=== PATIENT | female | born 1935 | race Caucasian/White ===

== ENCOUNTER 2017-08-29 10:24 | Inpatient (IN) | payer MEDICARE, OTHER ==
[~2017-08-29] VITALS: Ht 162.6 cm; Wt 95.6 kg
[~2017-08-29 10:24] MED LIST: ACHD5005 PO; ALLO300T2 PO; ASPI-586 PO; BISA5TAB8 PO; CHOL100045 PO; DOCU100C37 PO; ENOX30DI4 SC; GEMF600T3 PO; GLYB1.253 PO; INSU100V16 SC; LOSA25TA21 PO; MAGN400O7 PO; MULT-141 PO; OMG1KC PO; PROP15DR OU; SENN-140 PO; TIMO5DRO27 OU
[2017-08-29 11:00] VITALS: BP 134/58
--- NOTE | 2017-08-29 11:38 | Physical Therapy Evaluation ---
PT Evaluation-General Medical Diagnosis Admission Date Aug 29, 2017 at 11:00 Medical Diagnosis: left hip fracture Onset Date: Aug 27, 2017 Therapy Diagnosis Therapy Diagnosis: impaired mobility, strength, endurance, balance Height/Weight Height (Feet): 5 Height (Inches): 4.00 Weight (Pounds): 199 Weight (Ounces): 3.2 Weight Bear Status Left Lower Extremity: Left Touch Toe Bearing Referral Physician: Raffi Reason for Referral: Evaluation/Treatment Medical History Pertinent Medical History: Arthritis, DM, HTN Current History tripped over a scale in her bathroom Reviewed History: Yes Social History Home: Multilevel Current Living Status: Spouse Entry Into Home: Stairs With Railing PT Steps Into Home: 4 Prior/Core FIM Prior Level of Function Functional [place] Measure 0=Not Assessed/NA 4=Minimal Assistance 1=Total Assistance 5=Supervision or Setup 2=Maximal Assistance 6=Modified [place] 3=Moderate Assistance 7=Complete [place] Bed Mobility: 7 Transfers (B,C,W/C) (FIM): 7 Gait: 7 PT Evaluation-Current Subjective Patient in bed pre tx, on the fourth floor, will be doing rehab eval and taking her to the rehab floor. Patient at no complaints of pain at rest. During activity she only had 1-2/10 pain. Pt/Family Goals to be independent at home Objective Patient Orientation: Person, Place, Situation ROM/Strength ROM Lower Extremities NT due to recent surgery Strenght Lower Extremities NT due to recent surgery on left side, right side gross 4/5 Neuromuscular (Tone, Coordination, Reflexes) NT Sensory Vision: Functional Hearing: Functional Sensation Right Lower Extremit: Intact Sensation Left Lower Extremity: Intact Transfers Functional [place] Measure 0=Not Assessed/NA 4=Minimal Assistance 1=Total Assistance 5=Supervision or Setup 2=Maximal Assistance 6=Modified [place] 3=Moderate Assistance 7=Complete IndependenceIRFPAI Quality Coding Scale 6 Independent with activity with or without an assistive device 5 Patient requires set up or clean up by helper. Patient completes activity by themselves 4 Supervision or touching assist (CGA). [place] provide cues , steadying assist 3 The helper provides less than half the effort to complete the activity 2 The helper provides more than half the effort to complete the activity 1 Dependent. The helper does all the effort to complete an activity 7 Patient refused to complete or attempt activity 9 The patient did not perform the activity before the current illness or injury 88 Not attempted due to Medical conditions or safety concerns Transfers (B, C, W/C) (FIM): 4 Scootin Rollin Roll Left to Right (QC): 4 Supine to/from Sit: 4 Sit to/from Stand: 4 bed t/f WC(FIM only if WC use): 4 Sit to Lying (QC): 3 Lying to Sitting/Side of Bed(Q: 3 Sit to Stand (QC): 3 Chair/Foi-oz-Xuwyh Xfer(QC): 3 Car Transfer (QC): 3 Patient performs bed mobility with SBA, needs min assist for supine <-> sit and sit to stand, min assist for car transfer. Patient needs assist getting her left leg into and out of bed and to stand from lower surfaces. Gait Does the Patient Walk?: Yes Mode of Locomotion: Walk Anticipated Mode of Locomotion: Walk Gait (FIM): 1 Walk 10 feet (QC): 4 Walk 50 ft with 2 Turns(QC): 88 Walk 150 ft (QC): 88 Walking 10ft/uneven surface-QC: 88 Distance: 20 Gait Level of Assist: 4 Gait Persons Needed: 1 Gait Assistive Device: FWW Comments/Gait Description Patient can ambulate 20' with a rolling walker with CGA. She is TTWB has has trouble maintaining that. A step was not tried due to this reason. Wheelchair Training Does the Pt Use a Wheelchair?: Yes Wheelchair (FIM): 2 Distance: 50' Wheelchair Level of Assist: 4 Wheel 50 ft with 2 turns (QC): 3 Type of Wheelchair: Manual Patient can propel a manual wheelchair 50' with min assist. Stairs If not tested on admit;explain Patient is not appropriate to go up and down even 1 step at this time due to trouble maintaining her weight bearing status. Balance Sitting Static: Normal Sitting Dynamic: Normal Standing Static: Fair Standing Dynamic: Fair Picking up an Object (QC): 88 Treatment standing exercises in parallel bars x15 LLE (hip flex,hip abd, hamstring curls) , seated exercises bilateral LE x20 (AP, LAQ) Assessment/Needs Patient has impaired mobility, strength, endurance, balance. She is not confused. Has trouble maintaining her weight bearing status. Rehab Potential: Fair PT Short Term Goals Short Term Goals Time Frame: September 05, 2017 Transfers (B,C,W/C) (FIM): 4 Gait (FIM): 1 Gait Distance Comment: 40' Gait Level of Assist: 4 Gait Assistive Device: FWW PT Mcfp Goals Mcfp Goals PT Steam Turbine Operator Goals Time Frame: September 19, 2017 Transfers (B,C,W/C) (FIM): 5 Sit to Lying (QC): 6 Lying-Sitting on Side/Bed(QC): 6 Sit to Stand (QC): 4 Rollin Roll Left to Right (QC): 6 Chair/Iqb-xe-Rscrz Xfer(QC): 4 Car Transfer (QC): 4 Gait (FIM): 2 Distance: 100' Walk 10 feet (QC): 4 Walk 10ft-Uneven Surface(QC): 4 Walk 50ft with 2 Turns (QC): 4 Gait Level of Assist: 5 Gait Assistive Device: FWW Stairs (FIM): 2 # of Steps: 4 1 Step (curb) (QC): 4 4 Steps (QC): 4 Stairs Level Of Assist: 4 PT Plan Problem List Problem List: Activity Tolerance, Functional Strength, Safety, Balance, Gait, Transfer, Bed Mobility, ROM Treatment/Plan Treatment Plan: Continue Plan of Care Treatment Plan: Bed Mobility, Education, Functional Activity Jose David, Functional Strength, Group Therapy, Gait, Safety, Therapeutic Exercise, Transfers Treatment Duration: September 19, 2017 Frequency: At least 5 of 7 days/Wk (IRF) Estimated Hrs Per Day: 1.5 hours per day Patient and/or Family Agrees t: Yes Safety Risks/Education Patient Education: Gait Training, Transfer Techniques, Reviewed Precautions, Correct Positioning, W/C Management, Disease Process, Safety Issues Teaching Recipient: Patient Teaching Methods: Demonstration, Discussion Response to Teaching: Reinforcement Needed Discharge Recommendations Plan Patient will perform bed mobility and transfer training, balance and endurance training, functional strengthening, stair training, gait training, and education , to improve functional mobility and independence at home. Therapy D/C Recommendations: Home w/ Family Support Time/GCodes Time In: 1050 Time Out: 1130 Total Billed Treatment Time: 40 Total Billed Treatment 1 visit EVM 15' GT 10' EX 15' COSME MORGAN PT Aug 29, 2017 11:38
[2017-08-29] MEDS ORDERED: BISACODYL 5 MG (DULCOLAX) TABLET PO PRN (11:45)
[2017-08-29] MEDS ORDERED: ARTIFICAL TEARS 0.4 ML UNIT DOSE (REFRESH PLUS) OU PRN (12:00)
[2017-08-29] MEDS: HYDROcodone/APAP 5 MG/325 MG (LORTAB) TAB PO PRN ×2 (12:36→20:53)
[2017-08-29] MEDS: MILK OF MAGNESIA 400 MG/5 ML 30 ML UDC PO PRN (12:36)
--- NOTE | 2017-08-29 12:51 | Occupational Therapy Eval ---
OT Evaluation-General/PLF Medical Diagnosis Admission Date Aug 29, 2017 at 11:00 Medical Diagnosis: left hip fracture Onset Date: Aug 27, 2017 Therapy Diagnosis Therapy Diagnosis: decreased self care skills Height/Weight Height (Feet): 5 Height (Inches): 4.00 Weight (Pounds): 205 Weight (Ounces): 0.0 Weight Bear Status Weight Bearing Restriction: Touch Toe Bearing Location Restriction: L LE Referral Physician: Raffi Medical History Pertinent Medical History: Arthritis, DM, HTN Additional Medical History cataract, glaucoma Current History Pt fell at home and sustained a left hip fracture. Pt is s/p pinning and is TTWB left LE. Reviewed History: Yes Social History Home: Multilevel Current Living Status: Spouse Entry Into Home: Stairs With Railing Steps Into Home: 4 Steps Inside Home: 5 (to bedrooms) Pt states bedrooms are upstairs, but there is a half bath on main level. May be able to put a bed in the living room to avoid having to go upstairs until hip is healed. ADL-Prior Level of Function ADL PLOF Comments Pt reports being independent with self care and mobility. Has a customer quality specialist 2x/ month for heavy cleaning. DME/Equipment: Bath Bench, Tub/Shower Drive Self: Yes OT Current Status Subjective Pt sitting in chair, agrees to treatment. Pt reports 6/10 pain in left hip and also states she is having some nausea. Mental Status/Objective Patient Orientation: Person, Place, Situation Current Glasses/Contacts: Yes Hearing Aids: Yes (does not have them here) Dentures/Partials: Yes Hand Dominance: Right Upper Extremity ROM Grossly WFL Upper Extremity Coordination Intact Upper Extremity Sensation Intact per pt report ADL-Treatment ADL-Current Pt donned bra with minimal assistance and donned button up shirt with set up. Pt sit to stand from w/c with minimal assistance. Transfer to toilet with minimal assistance using grab bars for safety, TTWB left LE. Pt able to complete toileting hygiene, requires minimal assistance for balance during clothing management. Pt reports fatigue and requests to return to bed after session. Sit to supine with assist for left LE. Pt resting in bed with needs met and spouse present after session. Functional [place] Measure 0=Not Assessed/NA 4=Minimal Assistance 1=Total Assistance 5=Supervision or Setup 2=Maximal Assistance 6=Modified [place] 3=Moderate Assistance 7=Complete IndependenceIRFPAI Quality Coding Scale 6 Independent with activity with or without an assistive device 5 Patient requires set up or clean up by helper. Patient completes activity by themselves 4 Supervision or touching assist (CGA). [place] provide cues , steadying assist 3 The helper provides less than half the effort to complete the activity 2 The helper provides more than half the effort to complete the activity 1 Dependent. The helper does all the effort to complete an activity 7 Patient refused to complete or attempt activity 9 The patient did not perform the activity before the current illness or injury 88 Not attempted due to Medical conditions or safety concerns Upper Body Dressing (FIM): 4 Upper Body Dressing (QC): 3 Toileting (FIM): 4 Toileting Hygiene (QC): 3 Toilet/Commode Transfer (FIM): 4 Toilet Transfer (QC): 3 Education OT Patient Education: Rehab process Teaching Recipient: Patient Teaching Methods: Discussion Response to Teaching: Verbalize Understanding OT Short Term Goals Short Term Goals Time Frame: September 05, 2017 Upper Body Dressing(FIM): 5 Lower Body Dressing(FIM): 4 Toileting(FIM): 5 Toilet/Commode Transfer(FIM): 5 Additional Short Term Goals: 1-Demonstrate ADL Tasks, 2-Verbalize Understanding , 3-ImproveStrength/Jose David 1=Demonstrate adherence to instructed precautions during ADL tasks. 2=Patient will verbalize/demonstrate understanding of assistive devices/ modifications for ADL. 3=Patient will improve strength/tolerance for activity to enable patient to perform ADL's. OT Penitentiary Goals Operations Supervisor Goals Time Frame: September 19, 2017 Eating (FIM): 6 Eating (QC): 6 Groomin Oral Hygiene (QC): 6 Bathing(FIM): 5 Shower/Bathe Self (QC): 5 Upper Body Dressing(FIM): 6 Upper Body Dressing (QC): 6 Lower Body Dressing(FIM): 5 Lower Body Dressing (QC): 5 On/Off Footwear (QC): 6 Toileting(FIM): 6 Toileting Hygiene (QC): 6 Toilet/Commode Transfer(FIM): 6 Toilet/Commode Transfer (QC): 6 Shower Transfer(FIM): 5 Additional Goals: 1-Demonstrate ADL Tasks, 2-Verbalize Understanding, 3- ImproveStrength/Jose David 1=Demonstrate adherence to instructed precautions during ADL tasks. 2=Patient will verbalize/demonstrate understanding of assistive devices/ modifications for ADL. 3=Patient will improve strength/tolerance for activity to enable patient to perform ADL's. OT Education/Plan Problem List/Assessment Assessment: Decreased Activ Tolerance, Decreased UE Strength, Dependent Transfers, Impaired Funct Balance, Impaired Self-Care Skills Pt admitted to ARU following acute hospitalization for left hip fracture. Pt is TTWB left LE. Pt demonstrates decreased ADL functioning, mobility, strength, and activity tolerance. Pt to benefit from skilled OT intervention for ADL training, transfers, strengthening, adaptive equipment training, and home safety education to increase level of independence and allow safe discharge. Discharge Recommendations Plan/Recommendations: Continue POC Treatment Plan/Plan of Care Treatment,Training & Education: Yes Patient would benefit from OT for education, treatment and training to promote independence in ADL's, mobility, safety and/or upper extremity function for ADL' s. Plan of Care: ADL Retraining, Functional Mobility, Group Exercise/Act as Ind, UE Funct Exercise/Act Treatment Duration: September 19, 2017 Frequency: At least 5 of 7 days/Wk (IRF) Estimated Hrs Per Day: 1.5 hours per day Agreement: Yes Rehab Potential: Fair Time/GCodes Start Time: 11:30 Stop Time: 12:15 Total Time Billed (hr/min): 45 Billed Treatment Time 1 visit, EVM(15minutes), ADLx2(30minutes) HARDIK HARTMAN OT Aug 29, 2017 12:51
[2017-08-29] MEDS: ONDANSETRON 4 MG (ZOFRAN) ORAL DISSOLVE TAB PO PRN ×2 (13:38→20:52)
--- NOTE | 2017-08-29 14:06 | ST Cognitive Linguistic Eval ---
Speech Evaluation-General Medical Diagnosis left hip fracture Onset Date: Aug 27, 2017 Therapy Diagnosis Therapy Diagnosis: Cognitive Linguistic Skills WNL Precautions Precautions/Isolations: Fall Prevention, Standard Precautions Referral Referring Physician: Dr. Vasu Nugent Reason for Referral: Evaluation/Treatment Cognitive Evaluation Medical History Pertinent Medical History: Arthritis, DM, HTN Reviewed History: Yes Social History Current Living Status: Spouse Speech PLF-Current Status Prior Level of Function The patient denied prior difficulties with speech, language, or cognition prior to admission. Subjective The patient was seated upright in bed, with her spouse at bedside upon entrance. The patient greeted the clinician appropriately and was agreeable to participation in the cognitive evaluation. Language Eval: Auditory Comprehends Simple Yes/No Ques: Functional Indent/Objects Multiple [place]: Functional Ident/Pics in Multiple [place]: Functional Follows 1-Step Commands: Functional Follows Complex Directions: Functional Follows General Conversations: Functional Language Eval: Verbal Language Completes Spontaneous Greeting: Functional Produces Auto, Serial Info: Functional Imitates Simple Words/Phrases: Functional Word Finding: Functional Requests Basic Needs: Functional States Basic Personal Info: Functional Expresses Complex Ideas: Functional Cognitive Patient Orientation The patient was independently oriented to self, location, month, and year. The patient stated it was Sunday (the day of the week is Sunday). Objective Cognitive Domain Attention: WNL Memory: WNL Problem Solving: Functional Objective Impression The patient demonstrated cognitive linguistic skills within normal limits and appropriate for completion of ADL's. Communication/Social Cognition Comprehension: 6 (Glasses and Hearing Aids) Expression: 7 Social Interaction: 7 Problem Solvin Memory: 7 Speech Patient Assess Expression of Ideas/Wants: Expression (4) Understanding [place] Content: Understands (4) Brief Interview-Mental Status: Yes Repetition of Three Words: Three (3) Temporal Orientation: Year: Correct (3) Temporal Orientation: Month: Accurate within 5 days(2) Temporal Orientation: Day: Incorrect or No Answer(0) Recall : Wear to say "Sock": Yes, no cue required (2) Recall : Color: Yes, no cue required (2) Recall : Bed: Yes, no cue required (2) Speech-Plan Treatment Plan Speech Therapy Treatment Plan: Discontinue ST Evaluation, only. Frequency: Modified Program (IRF) (No ST warranted.) Estimated Hrs Per Day: Other (No ST warranted.) Rehab Potential: Fair Safety Risks/Education Teaching Recipient: Patient, Significant Other Teaching Methods: Discussion Response to Teaching: Verbalize Understanding Education Topics Provided: Results, Recommendations, Plan of Care Time Speech Therapy Time In: 12:35 Speech Therapy Time Out: 12:50 Total Billed Time: 15 Billed Treatment Time 1, RUTH BULL Aug 29, 2017 14:05
--- NOTE | 2017-08-29 14:24 | Occupational Ther Daily Note ---
OT Current Status-Daily Note Subjective Pt alert, lying in bed. Pt agreed to therapy. No c/o pain at this time. present in room. Mental Status/Objective Patient Orientation: Person, Place, Time, Situation Functional [place] Measure 0=Not Assessed/NA 4=Minimal Assistance 1=Total Assistance 5=Supervision or Setup 2=Maximal Assistance 6=Modified [place] 3=Moderate Assistance 7=Complete [place] Attachments: IV ADL-Treatment After therapy, pt lying in bed with call light/phone in reach. Family and nrsg present in room. All needs met in room. Functional [place] Measure 0=Not Assessed/NA 4=Minimal Assistance 1=Total Assistance 5=Supervision or Setup 2=Maximal Assistance 6=Modified [place] 3=Moderate Assistance 7=Complete IndependenceIRFPAI Quality Coding Scale 6 Independent with activity with or without an assistive device 5 Patient requires set up or clean up by helper. Patient completes activity by themselves 4 Supervision or touching assist (CGA). [place] provide cues , steadying assist 3 The helper provides less than half the effort to complete the activity 2 The helper provides more than half the effort to complete the activity 1 Dependent. The helper does all the effort to complete an activity 7 Patient refused to complete or attempt activity 9 The patient did not perform the activity before the current illness or injury 88 Not attempted due to Medical conditions or safety concerns Grooming (FIM): 5 (SBA using FWW standing at sink.) Oral Hygiene (QC): 5 Bathing (FIM): 4 (After set up, pt was able to complete sponge bath all areas except lower legs. SBA in standing to cleanse buttocks/allyson area.) Bathing Location: L Arm, R Arm, L Upper Leg, R Upper Leg, Chest, Abdomen, Buttocks, Perineal Area Shower/Bathe Self (QC): 3 Upper Body (FIM): 5 (After set up, pt is able to complete.) Upper Body Dressing (QC): 5 Lower Body Dressing (FIM): 2 (Assist needed to don/doff lower body clothing over feet. Pt introduced to lower body AE for dressing. Pt able to stand and hike pants over hips with SBA.) Lower Body Dressing (QC): 2 On/Off Footwear (QC): 1 OT Short Term Goals Short Term Goals Time Frame: September 05, 2017 Upper Body Dressing(FIM): 5 Lower Body Dressing(FIM): 4 Toileting(FIM): 5 Toilet/Commode Transfer(FIM): 5 Additional Short Term Goals: 1-Demonstrate ADL Tasks, 2-Verbalize Understanding , 3-ImproveStrength/Jose David 1=Demonstrate adherence to instructed precautions during ADL tasks. 2=Patient will verbalize/demonstrate understanding of assistive devices/ modifications for ADL. 3=Patient will improve strength/tolerance for activity to enable patient to perform ADL's. OT Custodial Goals River Boat Captain Goals Time Frame: September 19, 2017 Eating (FIM): 6 Eating (QC): 6 Groomin Oral Hygiene (QC): 6 Bathing(FIM): 5 Shower/Bathe Self (QC): 5 Upper Body Dressing(FIM): 6 Upper Body Dressing (QC): 6 Lower Body Dressing(FIM): 5 Lower Body Dressing (QC): 5 On/Off Footwear (QC): 6 Toileting(FIM): 6 Toileting Hygiene (QC): 6 Toilet/Commode Transfer(FIM): 6 Toilet/Commode Transfer (QC): 6 Shower Transfer(FIM): 5 Additional Goals: 1-Demonstrate ADL Tasks, 2-Verbalize Understanding, 3- ImproveStrength/Jose David 1=Demonstrate adherence to instructed precautions during ADL tasks. 2=Patient will verbalize/demonstrate understanding of assistive devices/ modifications for ADL. 3=Patient will improve strength/tolerance for activity to enable patient to perform ADL's. OT Education/Plan Problem List/Assessment Pt admitted to ARU following acute hospitalization for left hip fracture. Pt is TTWB left LE. Pt demonstrates decreased ADL functioning, mobility, strength, and activity tolerance. Pt to benefit from skilled OT intervention for ADL training, transfers, strengthening, adaptive equipment training, and home safety education to increase level of independence and allow safe discharge. Discharge Recommendations Plan/Recommendations: Continue POC Treatment Plan/Plan of Care Patient would benefit from OT for education, treatment and training to promote independence in ADL's, mobility, safety and/or upper extremity function for ADL' s. Plan of Care: ADL Retraining, Functional Mobility, Group Exercise/Act as Ind, UE Funct Exercise/Act Treatment Duration: September 19, 2017 Frequency: At least 5 of 7 days/Wk (IRF) Estimated Hrs Per Day: 1.5 hours per day Agreement: Yes Rehab Potential: Fair Time/GCodes Start Time: 12:50 Stop Time: 13:50 Total Time Billed (hr/min): 60 Billed Treatment Time 1 visit-ADL 4 (60 min) CRISTOBAL CANALES Aug 29, 2017 14:24
--- NOTE | 2017-08-29 14:30 | HISTORY AND PHYSICAL ---
DATE OF SERVICE: 08/29/2017 CHIEF COMPLAINT: Difficulty with walking. HISTORY OF PRESENT ILLNESS: The patient is a 81-year-old female who had been independent AND living with her spouse in [place], [place] who fell and sustained a fracture of the neck of the left femur. The patient was admitted to [facility] and had cannulated screw fixation. The patient was made touchdown weightbearing, left lower extremity postoperatively by Dr. Hutchinson, orthopedics. The patient was followed in the perioperative period by hospitalist service in lieu of PCP. The patient is now referred to inpatient rehabilitation unit for ongoing care and therapies with goal of maximizing level of functional dependence prior to discharge to home with her spouse. She has five steps to enter her house, her spouse presents to unit with her. Currently, she is mod assist for transfers and min assist for ambulation with a front wheel walker. She has difficulty maintaining her weightbearing status left lower extremity. She is set up for eating and grooming, min assist for upper body dressing, max assist for lower body dressing. PAST MEDICAL HISTORY: Hyponatremia, hypertension, prior fall with left shoulder injury. PAST SURGICAL HISTORY: Ear surgery, left total knee replacement, hysterectomy. ALLERGIES: No known medication allergies. FAMILY HISTORY: Noncontributory. SOCIAL HISTORY: as per above. Lives in [place], [place]. PCP, Dr. Madrid. REVIEW OF SYSTEMS: Ten point review of systems significant for left hip pain and falls. Now she does complain of some nausea as well, which she relates to pain medication. MEDICATIONS: Cozaar 25 mg p.o. daily. Lopid 600 mg p.o. daily, multivitamins with minerals one tablet p.o. daily, glyburide 1.25 mg p.o. daily, allopurinol 300 mg p.o. daily at bedtime, Colace 100 mg p.o. b.i.d., Senokot 1 tablet p.o. b.i.d., Timoptic eyedrops one drop into both eyes at bedtime, ASA 81 mg p.o. daily at bedtime, fish oil 1000 mg p.o. daily at bedtime, Lovenox 30 mg subcutaneous b.i.d., NovoLog insulin sliding scale regimen before meals and at bedtime, Zofran 4 mg p.o. q.6 hours p.r.n. nausea and vomiting, Refresh eyedrops one drop both eyes q.i.d. p.r.n. dry eyes, Dulcolax 5 mg p.o. daily p.r.n. constipation, hydrocodone APAP 5/325 1-2 tablets p.o. q.4 hours for moderate pain. PHYSICAL EXAMINATION: GENERAL: Significant for a pleasant female appearing her stated age, alert and oriented, lying in bed in no acute distress indicating that her nausea is improving. VITAL SIGNS: Within normal limits. She is afebrile. HEENT: Vision, speech, hearing grossly intact. No oral lesion is noted. NECK: Supple without mass. HEART: Regular rhythm. CHEST: Clear. ABDOMEN: Soft, nontender, bowel sounds present. EXTREMITIES: Trace edema left ankle, no calf tenderness. MUSCULOSKELETAL: The patient has functional active range of motion in both upper limbs and right lower limb, left lower limb limited due to recent fracture and repair. NEUROLOGIC: Sensation grossly intact to touch. Cognition is grossly intact. Strength: She has functional strength in both upper limbs and right lower limb strength 4/5. She is able to dorsiflex the left ankle. ASSESSMENT AND PLAN: 1. Ambulatory dysfunction secondary to fall with fracture of left hip, status post cannulated screw fixation by Dr. Hutchinson touchdown weightbearing left lower limb. 2. Osteoarthritis, status post left total knee replacement. 3. Hypertension, controlled with medication. 4. Deep vein thrombosis prophylaxis, on Lovenox subq. 5. Postop nausea medication related, Zofran ordered. 6. Diabetes mellitus, controlled with medication. 7. Hypercholesterolemia, on medication. 8. pOSTOP RESP INSUFFICIENCY ON SUPPLEMENTAL 02 9. pOSTOP CONSTIPATION 10. dm PLAN: The patient will have A comprehensive program of inpatient rehabilitation WITH goal of maximizing THE level of functioning independenCE prior to discharge to home with spouse. The patient will have PT, OT 90 minutes per day each discipline, 5 days a week for 14 days with the patient being modified independent, supervision for ADLs and mobility skills prior to discharge to home with spouse so as to lessen the burden as a caregiver. Please see post-admission physician evaluation, which is a separate document for details of plan of care. Speech therapy to do cognitive assessment and treat as indicated. Rehabilitation nursing assist with bowel, bladder, skin, wound care, medication administration, pain management, Zofran ordered for nausea. Monitor and follow up at hospitalist service and orthopedics as per their schedule. Monitor Accu-Cheks and adjust medications as needed for diabetes. ESTIMATED LENGTH OF STAY: 14 days. PROGNOSIS: Rehab prognosis appears good for goal of discharging home with spouse, modified independent to supervision for ADLs and mobility skills.mAY NEED TO FOCUS ON w/ c LEVEL OF FUNCTION DUE TO ttwb lle DIET: cARB Consistent. CODE STATUS: Full code. Job ID: [id number] DocumentID: [id number] Dictated Date: 08/29/2017 12:54:51 Legal Instructor Date: 08/29/2017 14:30:06 Dictated By: LIBERTAD LIPSCOMB MD MTDD
--- NOTE | 2017-08-29 15:43 | Physical Therapy Daily Note ---
PT Daily Note-Current Subjective Pt laying Supine in bed upon arrival. Pt reports feeling tired from a long day. Pt agrees to Supine bed Ex for PT. Pain Location: No Pain Reported Mental Status Patient Orientation: Person, Place, Time, Situation Attachments: SCD's Transfers Functional [place] Measure 0=Not Assessed/NA 4=Minimal Assistance 1=Total Assistance 5=Supervision or Setup 2=Maximal Assistance 6=Modified [place] 3=Moderate Assistance 7=Complete IndependenceIRFPAI Quality Coding Scale 6 Independent with activity with or without an assistive device 5 Patient requires set up or clean up by helper. Patient completes activity by themselves 4 Supervision or touching assist (CGA). [place] provide cues , steadying assist 3 The helper provides less than half the effort to complete the activity 2 The helper provides more than half the effort to complete the activity 1 Dependent. The helper does all the effort to complete an activity 7 Patient refused to complete or attempt activity 9 The patient did not perform the activity before the current illness or injury 88 Not attempted due to Medical conditions or safety concerns Weight Bearing Right Lower Extremity: Right Full Weight Bearing Left Lower Extremity: Left Touch Toe Bearing Exercises Supine Ex: Ankle pumps, Quad Set, Glut sets, Heel Slides, Hip abd/add Supine Reps: 15 Treatments Pt completed Supine Ex with a couple of rest breaks. Pt resting in bed at end of tx with all needs met, including call light in hand and tray next to bed. Assessment Pt is able to tolerate tx well. Pt fatigues and struggles to stay awake by end of tx. PT Short Term Goals Short Term Goals Time Frame: September 05, 2017 Gait (FIM): 1 Gait Distance Comment: 40' Gait Level of Assist: 4 Gait Assistive Device: FWW Wheelchair Distance: 50' PT Longterm Goals Longterm Goals PT Longterm Goals Time Frame: September 19, 2017 Transfers (B,C,W/C) (FIM): 5 Sit to Lying (QC): 6 Lying-Sitting on Side/Bed(QC): 6 Sit to Stand (QC): 4 Rollin Roll Left to Right (QC): 6 Chair/Ovj-my-Nkjvz Xfer(QC): 4 Car Transfer (QC): 4 Gait (FIM): 2 Distance: 100' Walk 10 feet (QC): 4 Walk 10ft-Uneven Surface(QC): 4 Walk 50ft with 2 Turns (QC): 4 Gait Level of Assist: 5 Gait Assistive Device: FWW Stairs (FIM): 2 # of Steps: 4 1 Step (curb) (QC): 4 4 Steps (QC): 4 Stairs Level Of Assist: 4 PT Plan Problem List Problem List: Activity Tolerance, Functional Strength, Safety, Balance, Gait, Transfer Treatment/Plan Treatment Plan: Continue Plan of Care Treatment Plan: Bed Mobility, Education, Functional Activity Jose David, Functional Strength, Group Therapy, Gait, Safety, Therapeutic Exercise, Transfers Treatment Duration: September 19, 2017 Frequency: At least 5 of 7 days/Wk (IRF) Estimated Hrs Per Day: 1.5 hours per day Patient and/or Family Agrees t: Yes Safety Risks/Education Patient Education: Correct Positioning, Safety Issues Teaching Recipient: Patient Teaching Methods: Discussion Response to Teaching: Verbalize Understanding Time/GCodes Time In: 1515 Time Out: 1535 Total Billed Treatment Time: 20 Total Billed Treatment 1, EX (20m) MASON COATES PROGRESS WORKER Aug 29, 2017 15:43
[2017-08-29] MEDS: inSUlin ASPART (NovoLOG) 1 UNIT/0.01 ML (CHARGE PER UNIT) SC SCH ×2 (16:12→20:57)
[2017-08-29 18:00] VITALS: BP 132/62
[2017-08-29] MEDS: DOCUSATE SODIUM 100 MG (COLACE) CAP PO SCH (20:52)
[2017-08-29] MEDS: ENOXAPARIN 30 MG/0.3 ML (LOVENOX) SYR SC SCH (20:52)
[2017-08-29] MEDS: ALLOPURINOL 300 MG (ZYLOPRIM) TAB PO SCH (20:53)
[2017-08-29] MEDS: ASPIRIN E.C. 81 MG (ECOTRIN) TAB PO SCH (20:53)
[2017-08-29] MEDS: OMEGA 3 (FISH OIL) 1000 MG CAP PO SCH (20:53)
[2017-08-29] MEDS: SENNOSIDES 8.6 MG (SENOKOT) TAB PO SCH (20:53)
[2017-08-29] MEDS: TIMOLOL MALEATE 0.5% 5 ML (TIMOPTIC) BTL OU SCH (20:58)
[2017-08-30] MEDS: ONDANSETRON 4 MG (ZOFRAN) ORAL DISSOLVE TAB PO PRN ×2 (04:26→21:00)
[2017-08-30] MEDS: HYDROcodone/APAP 5 MG/325 MG (LORTAB) TAB PO PRN ×3 (04:27→21:00)
[2017-08-30] MEDS: inSUlin ASPART (NovoLOG) 1 UNIT/0.01 ML (CHARGE PER UNIT) SC SCH ×4 (04:41→21:11)
[2017-08-30 05:08] VITALS: BP 133/69
[2017-08-30] MEDS: glyBURIDE 2.5 MG (MICRONASE) TAB PO SCH (06:43)
[2017-08-30] MEDS: MULTIVIT W/MINERALS TAB (THERAGRAN M) PO SCH (06:43)
[2017-08-30] MEDS: ENOXAPARIN 30 MG/0.3 ML (LOVENOX) SYR SC SCH ×2 (08:37→21:03)
[2017-08-30] MEDS: GEMFIBROZIL 600 MG (LOPID) TAB PO SCH (08:37)
[2017-08-30] MEDS: LOSARTAN 25 MG (COZAAR) TAB PO SCH (08:37)
[2017-08-30] MEDS: SENNOSIDES 8.6 MG (SENOKOT) TAB PO SCH ×2 (08:37→21:03)
[2017-08-30] MEDS: DOCUSATE SODIUM 100 MG (COLACE) CAP PO SCH ×3 (08:37→21:05)
--- NOTE | 2017-08-30 10:38 | PM & R (SOAP) Progress Note ---
Subjective This was a face to face visit with the patient. Date Seen by Provider: Aug 30, 2017 Time Seen by Provider: 08:30 Subjective/Events-last exam Patient was seen in her room this AM Adjusting well to unit No nausea today Patient mod assist for transfers Review of Systems Musculoskeletal: leg pain Neurological: Weakness Objective Physician Exam Last Set of Vital Signs Vital Signs Date Time Temp Pulse Resp B/P (MAP) Pulse Ox O2 Delivery O2 Flow Rate FiO2 08/30/17 09:16 Nasal Cannula 2.00 08/30/17 05:08 98.6 77 18 133/69 (90) 96 Capillary Refill : Less Than 3 Seconds I&O Intake and Output 08/30/17 00:00 Intake Total 300 ml Balance 300 ml Intake Oral 300 ml # Voids 2 Daily Weight Change No General: Alert, Oriented X3, Cooperative, No Acute Distress HEENT: Atraumatic, PERRLA, EOMI, Mucous Memb Moist/[place] Neck: Supple, No JVD Lungs: Clear to Auscultation Heart: Regular Rate Abdomen: Normal Bowel Sounds, Soft, No Tenderness Extremities: No Edema Neuro: Other (Sensation intact Cognition intact Strength good except for left LLE due to recent frx and repair) Results Lab Data Laboratory Tests 08/29/17 16:12: Glucometer 114H 08/29/17 20:57: Glucometer 152H 08/30/17 04:25: Glucometer 85 Assessment/Plan Assessment and Plan Left Hip fracture s/p Nailing TTWB LLE OA s/p Left TKR HTN controlled DVT Prophylaxis on Lovenox DM Controlled with current meds Hypercholesteremia on meds Postop nausea resolved Plan Continue PT/OT/Pain management F/U with PCP and ortho as per their schedule Monitor accucheks and Blood pressure and adjust meds as needed Co-Morbidities that are continuing to impact the rehab process: (include details ) LIBERTAD LIPSCOMB MD Aug 30, 2017 10:38
--- NOTE | 2017-08-30 10:43 | PM&R Post Admission Assessment ---
Post Admission Physician Asses Date seen by provider: Aug 30, 2017 Time seen by provider: 08:30 Admisison Dx: (1) Closed subcapital fracture of neck of left femur The preadmission screen agrees with the post admission assessment that the patient is a good candidate for inpatient rehabilitation. The patient will have a comprehensive program of inpatient rehabilitation with a goal of maximizing level of functional independence prior to discharge home with spouse and HHC. The patient will have PT/OT ninety minutes per day, each discipline, five days a week for gait, strengthening, conditioning, balance, ADLs, any patient/family/caregiver training as necessary. Speech therapy to do cognitive assessment and treat as indicated. Rehabilitation nursing to assist with bowel, bladder, skin, wound care, medication administration, pain management. Cloth Winder to assist with discharge planning, community reentry. SCD's and Lovenox subcut for DVT prophylaxis. She appears to be well motivated to participate in three hours of therapy a day. She should be able to tolerate three hours of therapy a day from a medical and surgical standpoint. She should benefit from the three hours of therapy a day. She has a reasonable discharge plan, reasonable discharge rehabilitation goals and a supportive family. She has various comorbidities that need to be closely monitored with medications and treatments adjusted on a daily basis as needed. These include: HTN DM Barriers to discharge for this patient who had been independent prior to this are for her to be modified independent to supervision for ADLs and mobility skills prior to discharge home with spouse, so as to lessen the burden of the caregivers. The focus may have to be on W/C level of function initially due to TTWB status LLE Risks for this patient include: 1. Fall 2. Fracture 3. DVT 4. Pulmonary embolism 5. Wound infection 6. Skin breakdown 7. Contractures 8. Poorly controlled pain 9. Urinary retention 10. UTI 11. Respiratory infection 12. Aspiration 13. Poorly controlled HT 14. Poorly controlled DM 15. Recurrent Nausea Estimated Length of Stay: 14 days Prognosis: Rehab prognosis appears good for goal of discharge home with spouse and HHC modified independent to supervision for ADLs and mobility skills. General: Alert, Oriented X3, Cooperative, No Acute Distress HEENT: Atraumatic, PERRLA, EOMI, Mucous Memb Moist/[place] Neck: Supple, No JVD Lungs: Clear to Auscultation Heart: Regular Rate Abdomen: Normal Bowel Sounds, Soft, No Tenderness Extremities: No Edema Neuro: Other (Sensation intact Cognition intact Strength good except for left LLE due to recent frx and repair) LIBERTAD LIPSCOMB MD Aug 30, 2017 10:43
--- NOTE | 2017-08-30 10:44 | Progress Note-Hospitalist ---
Subjective HPI/CC On Admission Date Seen by Provider: Aug 30, 2017 Time Seen by Provider: 10:15 Subjective/Events-last exam Patient doing a lot better since nausea and vomiting earlier today Giovanni is helping her Pain is controlled as long as she doesn't move No BM yet and will work on that a little more today Review of Systems Gastrointestinal: Nausea, Vomiting, Constipation Objective Exam Vital Signs Vital Signs Date Time Temp Pulse Resp B/P (MAP) Pulse Ox O2 Delivery O2 Flow Rate FiO2 08/30/17 09:16 Nasal Cannula 2.00 08/30/17 05:08 98.6 77 18 133/69 (90) 96 Capillary Refill : Less Than 3 Seconds General Appearance: No Apparent Distress, WD/WN, Chronically ill, Obese Respiratory: Lungs Clear, Normal Breath Sounds Cardiovascular: Regular Rate, Rhythm, No Edema Neurologic/Psychiatric: Alert, Oriented x3 (subtle poor recall) Results/Procedures Lab Patient resulted labs reviewed. Assessment/Plan Assessment and Plan Assess & Plan/Chief Complaint Assessment: Hip fracture repair uncomplicated Postop anemia Nausea and vomiting Constipation Plan: Pain meds Nausea treatment Clinical Quality Measures DVT/VTE Risk/Contraindication: Risk Factor Score Per Nursin RFS Level Per Nursing on Admit: 4+=Very High KENDRICK DOHERTY DO Aug 30, 2017 10:44
--- NOTE | 2017-08-30 12:01 | Physical Therapy Daily Note ---
PT Daily Note-Current Subjective Pt in bed resting, in room, upon arrival. Pt agrees to PT tx. Pt states she was nauseous and had threw up earlier this morning after her shower. Pain Numeric Pain Scale: 3 Location: Left Location Body Site: Hip Pain Description: Ache Mental Status Patient Orientation: Person, Place, Time, Situation Attachments: Oxygen (2L) Transfers Functional [place] Measure 0=Not Assessed/NA 4=Minimal Assistance 1=Total Assistance 5=Supervision or Setup 2=Maximal Assistance 6=Modified [place] 3=Moderate Assistance 7=Complete IndependenceIRFPAI Quality Coding Scale 6 Independent with activity with or without an assistive device 5 Patient requires set up or clean up by helper. Patient completes activity by themselves 4 Supervision or touching assist (CGA). [place] provide cues , steadying assist 3 The helper provides less than half the effort to complete the activity 2 The helper provides more than half the effort to complete the activity 1 Dependent. The helper does all the effort to complete an activity 7 Patient refused to complete or attempt activity 9 The patient did not perform the activity before the current illness or injury 88 Not attempted due to Medical conditions or safety concerns Transfers (B, C, W/C) (FIM): 4 Scootin Supine to/from Sit: 4 Sit to/from Stand: 4 Sit to Lying (QC): 4 Sit to Stand (QC): 4 Pt transfer Sit to Stand at [facility], but has more difficulty transferring from [facility] to standing, d/t [facility] being low. DIRECTOR OF VALUATION will look for appropriate sized cushion to add some height. Weight Bearing Right Lower Extremity: Right Full Weight Bearing Left Lower Extremity: Left Touch Toe Bearing Gait Training Does the Patient Walk?: Yes Gait (FIM): 4 Distance (FIM): 3=150 ft Distance: 175' Walk 10 feet (QC): 4 Walk 50 ft with 2 Turns(QC): 4 Walk 150 ft (QC): 4 Gait Level of Assist: 4 Gait Persons Needed: 1 Gait Assistive Device: FWW Exercises Seated Therapy Exercises: Ankle pumps, Long arc quads, Hip flexion Seated Reps: 20 Standing: Hip Abduction (L LE only ), Hamstring curls (L LE only ) Standing Reps: 15 Treatments Pt Supine to EOB w/ CGA. Pt rests on EOB to help ease nausea. Pt transfers EOB to Standing w/ CGA, then ambulates to Therapy Gym w/ FWW. Pt completes Seated EX in [facility] and Standing EX in //bars. Pt returns to room to rest in bed and eat lunch w/ all needs met including call light in hand, in room and tray in front of patient, at end of tx. Assessment Current Status: Good Progress Pt c/o nausea throughout tx, but actively participates. Pt requires breaks during EX to help ease nausea. PT Short Term Goals Short Term Goals Time Frame: September 05, 2017 Gait (FIM): 1 Gait Distance Comment: 40' Gait Level of Assist: 4 Gait Assistive Device: FWW Wheelchair Distance: 50' PT Livestock Breeder Goals Skilled Nursing Goals PT Livestock Breeder Goals Time Frame: September 19, 2017 Transfers (B,C,W/C) (FIM): 5 Sit to Lying (QC): 6 Lying-Sitting on Side/Bed(QC): 6 Sit to Stand (QC): 4 Rollin Roll Left to Right (QC): 6 Chair/Zeu-rq-Aycmj Xfer(QC): 4 Car Transfer (QC): 4 Gait (FIM): 2 Distance: 100' Walk 10 feet (QC): 4 Walk 10ft-Uneven Surface(QC): 4 Walk 50ft with 2 Turns (QC): 4 Gait Level of Assist: 5 Gait Assistive Device: FWW Stairs (FIM): 2 # of Steps: 4 1 Step (curb) (QC): 4 4 Steps (QC): 4 Stairs Level Of Assist: 4 PT Plan Problem List Problem List: Activity Tolerance, Functional Strength, Safety, Balance, Gait, Transfer, Bed Mobility Treatment/Plan Treatment Plan: Continue Plan of Care Treatment Plan: Bed Mobility, Education, Functional Activity Jose David, Functional Strength, Group Therapy, Gait, Safety, Therapeutic Exercise, Transfers Treatment Duration: September 19, 2017 Frequency: At least 5 of 7 days/Wk (IRF) Estimated Hrs Per Day: 1.5 hours per day Patient and/or Family Agrees t: Yes Safety Risks/Education Patient Education: Gait Training, Transfer Techniques, Correct Positioning, Disease Process, Safety Issues Teaching Recipient: Patient Teaching Methods: Demonstration, Discussion Response to Teaching: Verbalize Understanding, Return Demonstration, Reinforcement Needed Time/GCodes Time In: 1100 Time Out: 1200 Total Billed Treatment Time: 60 Total Billed Treatment 1, EX x2 (30m), GT (20m), FA (10m) G Codes Necessary: No TREIBER,MASON DIRECTOR OF VALUATION Aug 30, 2017 12:01
[2017-08-30] MEDS: BISACODYL 10 MG SUPP (DULCOLAX) PR SCH ×2 (12:19→21:10)
--- NOTE | 2017-08-30 14:51 | Occupational Ther Daily Note ---
OT Current Status-Daily Note Subjective No pain reported. Appearance Pt. agrees to shower. Has already ate breakfast. Mental Status/Objective Patient Orientation: Person, Place Functional [place] Measure 0=Not Assessed/NA 4=Minimal Assistance 1=Total Assistance 5=Supervision or Setup 2=Maximal Assistance 6=Modified [place] 3=Moderate Assistance 7=Complete [place] Attachments: Oxygen ADL-Treatment Functional [place] Measure 0=Not Assessed/NA 4=Minimal Assistance 1=Total Assistance 5=Supervision or Setup 2=Maximal Assistance 6=Modified [place] 3=Moderate Assistance 7=Complete IndependenceIRFPAI Quality Coding Scale 6 Independent with activity with or without an assistive device 5 Patient requires set up or clean up by helper. Patient completes activity by themselves 4 Supervision or touching assist (CGA). [place] provide cues , steadying assist 3 The helper provides less than half the effort to complete the activity 2 The helper provides more than half the effort to complete the activity 1 Dependent. The helper does all the effort to complete an activity 7 Patient refused to complete or attempt activity 9 The patient did not perform the activity before the current illness or injury 88 Not attempted due to Medical conditions or safety concerns Bathing (FIM): 3 (Pt. requires assist to thoroughly wash feet and wash rear allyson area in shower.) Shower/Bathe Self (QC): 3 Upper Body (FIM): 4 (Min assist to adjust bra strap. Otherwise, able to don shirt.) Upper Body Dressing (QC): 4 Lower Body Dressing (FIM): 3 (Pt. required assist to don pants over feet.) Lower Body Dressing (QC): 3 On/Off Footwear (QC): 3 Toileting (FIM): 4 (CGA in stance.) Toileting Hygiene (QC): 4 Transfers (B, C, W/C) (FIM): 4 (CGA to ambulate with walker to bathroom.) Toilet/Commode Transfer (FIM): 4 Toilet Transfer (QC): 4 Shower Transfer(FIM): 4 Other Treatment Pt. states that she feels nauseated after shower. Pt. transferred back to bed. Nursing made aware and in room assessing pt. Education OT Patient Education: Correct positioning, Modified ADL techniques, Progress toward Goal/Update tx plan, Purpose of tx/functional activities, Reviewed precautions, Rehab process, Transfer techniques Teaching Recipient: Patient Teaching Methods: Demonstration Response to Teaching: Verbalize Understanding, Return Demonstration OT Short Term Goals Short Term Goals Time Frame: September 05, 2017 Upper Body Dressing(FIM): 5 Lower Body Dressing(FIM): 4 Toileting(FIM): 5 Toilet/Commode Transfer(FIM): 5 Additional Short Term Goals: 1-Demonstrate ADL Tasks, 2-Verbalize Understanding , 3-ImproveStrength/Jose David 1=Demonstrate adherence to instructed precautions during ADL tasks. 2=Patient will verbalize/demonstrate understanding of assistive devices/ modifications for ADL. 3=Patient will improve strength/tolerance for activity to enable patient to perform ADL's. OT Pre Sales Network Engineer Goals [facility] Goals Time Frame: September 19, 2017 Eating (FIM): 6 Eating (QC): 6 Groomin Oral Hygiene (QC): 6 Bathing(FIM): 5 Shower/Bathe Self (QC): 5 Upper Body Dressing(FIM): 6 Upper Body Dressing (QC): 6 Lower Body Dressing(FIM): 5 Lower Body Dressing (QC): 5 On/Off Footwear (QC): 6 Toileting(FIM): 6 Toileting Hygiene (QC): 6 Toilet/Commode Transfer(FIM): 6 Toilet/Commode Transfer (QC): 6 Shower Transfer(FIM): 5 Additional Goals: 1-Demonstrate ADL Tasks, 2-Verbalize Understanding, 3- ImproveStrength/Jose David 1=Demonstrate adherence to instructed precautions during ADL tasks. 2=Patient will verbalize/demonstrate understanding of assistive devices/ modifications for ADL. 3=Patient will improve strength/tolerance for activity to enable patient to perform ADL's. OT Education/Plan Problem List/Assessment Assessment: Decreased Activ Tolerance, Dependent Transfers, Impaired Bed Mobility, Impaired Funct Balance, Impaired I ADL's, Impaired Self-Care Skills Pt admitted to ARU following acute hospitalization for left hip fracture. Pt is TTWB left LE. Pt demonstrates decreased ADL functioning, mobility, strength, and activity tolerance. Pt to benefit from skilled OT intervention for ADL training, transfers, strengthening, adaptive equipment training, and home safety education to increase level of independence and allow safe discharge. Discharge Recommendations Plan/Recommendations: Continue POC Therapy D/C Recommendations: Home w/ Family Support, Occupational Therapy Home Care Treatment Plan/Plan of Care Treatment,Training & Education: Yes Patient would benefit from OT for education, treatment and training to promote independence in ADL's, mobility, safety and/or upper extremity function for ADL' s. Plan of Care: ADL Retraining, Functional Mobility, Group Exercise/Act as Ind, UE Funct Exercise/Act Treatment Duration: September 19, 2017 Frequency: At least 5 of 7 days/Wk (IRF) Estimated Hrs Per Day: 1.5 hours per day Agreement: Yes Rehab Potential: Fair Time/GCodes Start Time: 08:30 Stop Time: 09:30 Total Time Billed (hr/min): 60 Billed Treatment Time 1, ADL x 4 BRIAN HOLT OT Aug 30, 2017 14:51
--- NOTE | 2017-08-30 14:57 | Occupational Ther Daily Note ---
OT Current Status-Daily Note Subjective No pain reported. Appearance Pt. in bed. Agrees to work with OT. Mental Status/Objective Patient Orientation: Person, Place Functional [place] Measure 0=Not Assessed/NA 4=Minimal Assistance 1=Total Assistance 5=Supervision or Setup 2=Maximal Assistance 6=Modified [place] 3=Moderate Assistance 7=Complete [place] Attachments: Oxygen ADL-Treatment Functional [place] Measure 0=Not Assessed/NA 4=Minimal Assistance 1=Total Assistance 5=Supervision or Setup 2=Maximal Assistance 6=Modified [place] 3=Moderate Assistance 7=Complete IndependenceIRFPAI Quality Coding Scale 6 Independent with activity with or without an assistive device 5 Patient requires set up or clean up by helper. Patient completes activity by themselves 4 Supervision or touching assist (CGA). [place] provide cues , steadying assist 3 The helper provides less than half the effort to complete the activity 2 The helper provides more than half the effort to complete the activity 1 Dependent. The helper does all the effort to complete an activity 7 Patient refused to complete or attempt activity 9 The patient did not perform the activity before the current illness or injury 88 Not attempted due to Medical conditions or safety concerns Transfers (B, C, W/C) (FIM): 4 (Min assist to transfer supine-sit and sit- stand.) Toilet/Commode Transfer (FIM): 4 (CGA to ambulate into bathroom.) Toilet Transfer (QC): 4 Pt. transferred to side of bed. Practiced donning shoes with dressing stick. Required min assist for this. Pt. issued shoe spoon. Ambulated with emphasis to maintain TTWB to therapy dining room. Pt. sat and rested. Ambulated back to room with increased time needed. Pt. requested to use toilet. Transferred to toilet in bathroom. Pt. requested to sit awhile and pulled chord when done. Education OT Patient Education: Correct positioning, Modified ADL techniques, Progress toward Goal/Update tx plan, Purpose of tx/functional activities, Reviewed precautions, Rehab process, Transfer techniques Teaching Recipient: Patient Teaching Methods: Demonstration, Discussion Response to Teaching: Verbalize Understanding, Return Demonstration OT Short Term Goals Short Term Goals Time Frame: September 05, 2017 Upper Body Dressing(FIM): 5 Lower Body Dressing(FIM): 4 Toileting(FIM): 5 Toilet/Commode Transfer(FIM): 5 Additional Short Term Goals: 1-Demonstrate ADL Tasks, 2-Verbalize Understanding , 3-ImproveStrength/Jose David 1=Demonstrate adherence to instructed precautions during ADL tasks. 2=Patient will verbalize/demonstrate understanding of assistive devices/ modifications for ADL. 3=Patient will improve strength/tolerance for activity to enable patient to perform ADL's. OT Senior Care Goals Medical Chief Technician Goals Time Frame: September 19, 2017 Eating (FIM): 6 Eating (QC): 6 Groomin Oral Hygiene (QC): 6 Bathing(FIM): 5 Shower/Bathe Self (QC): 5 Upper Body Dressing(FIM): 6 Upper Body Dressing (QC): 6 Lower Body Dressing(FIM): 5 Lower Body Dressing (QC): 5 On/Off Footwear (QC): 6 Toileting(FIM): 6 Toileting Hygiene (QC): 6 Toilet/Commode Transfer(FIM): 6 Toilet/Commode Transfer (QC): 6 Shower Transfer(FIM): 5 Additional Goals: 1-Demonstrate ADL Tasks, 2-Verbalize Understanding, 3- ImproveStrength/Jose David 1=Demonstrate adherence to instructed precautions during ADL tasks. 2=Patient will verbalize/demonstrate understanding of assistive devices/ modifications for ADL. 3=Patient will improve strength/tolerance for activity to enable patient to perform ADL's. OT Education/Plan Problem List/Assessment Assessment: Decreased Activ Tolerance, Dependent Transfers, Impaired I ADL's, Impaired Self-Care Skills Pt admitted to ARU following acute hospitalization for left hip fracture. Pt is TTWB left LE. Pt demonstrates decreased ADL functioning, mobility, strength, and activity tolerance. Pt to benefit from skilled OT intervention for ADL training, transfers, strengthening, adaptive equipment training, and home safety education to increase level of independence and allow safe discharge. Discharge Recommendations Plan/Recommendations: Continue POC Therapy D/C Recommendations: Home w/ Family Support, Occupational Therapy Home Care Treatment Plan/Plan of Care Treatment,Training & Education: Yes Patient would benefit from OT for education, treatment and training to promote independence in ADL's, mobility, safety and/or upper extremity function for ADL' s. Plan of Care: ADL Retraining, Functional Mobility, Group Exercise/Act as Ind, UE Funct Exercise/Act Treatment Duration: September 19, 2017 Frequency: At least 5 of 7 days/Wk (IRF) Estimated Hrs Per Day: 1.5 hours per day Agreement: Yes Rehab Potential: Good Time/GCodes Start Time: 13:00 Stop Time: 13:30 Total Time Billed (hr/min): 30 Billed Treatment Time 1, FA x 15minutes, ADL x 15minutes BRIAN HOLT OT Aug 30, 2017 14:57
--- NOTE | 2017-08-30 15:01 | Physical Therapy Daily Note ---
PT Daily Note-Current Subjective Pt in bed resting, in room, upon arrival. Pt agrees to PT tx. Pt asked if she could take 1 pain pill instead of 2. SALES OPERATIONS COORDINATOR passed this information on to Nursing. Pain Location: No Pain Reported Mental Status Patient Orientation: Person, Place, Time, Situation Attachments: Oxygen (2L) Transfers Functional [place] Measure 0=Not Assessed/NA 4=Minimal Assistance 1=Total Assistance 5=Supervision or Setup 2=Maximal Assistance 6=Modified [place] 3=Moderate Assistance 7=Complete IndependenceIRFPAI Quality Coding Scale 6 Independent with activity with or without an assistive device 5 Patient requires set up or clean up by helper. Patient completes activity by themselves 4 Supervision or touching assist (CGA). [place] provide cues , steadying assist 3 The helper provides less than half the effort to complete the activity 2 The helper provides more than half the effort to complete the activity 1 Dependent. The helper does all the effort to complete an activity 7 Patient refused to complete or attempt activity 9 The patient did not perform the activity before the current illness or injury 88 Not attempted due to Medical conditions or safety concerns Transfers (B, C, W/C) (FIM): 4 Scootin Rollin Supine to/from Sit: 4 Sit to/from Stand: 4 Sit to Lying (QC): 4 Sit to Stand (QC): 4 Cushion put in pts WCH, d/t noticing it was more difficult transferring from WCH to standing, than other seated surfaces. Weight Bearing Right Lower Extremity: Right Full Weight Bearing Left Lower Extremity: Left Touch Toe Bearing Gait Training Does the Patient Walk?: Yes Gait (FIM): 4 Distance (FIM): 3=150 ft Distance: 150' Walk 10 feet (QC): 4 Walk 50 ft with 2 Turns(QC): 4 Gait Level of Assist: 4 Gait Persons Needed: 1 Gait Assistive Device: FWW Treatments Pt transfers Supine to EOB and EOB to standing at CGA. Pt ambulates into hallway w/ FWW, practices Sit to Stand w/ cushion added to WCH. SALES OPERATIONS COORDINATOR observes increased independence w/ transfer, d/t cushion being added to WCH. Pt ambulates throughout Therapy Unit, before returning to room to rest in bed w/ all needs met including call light in hand, in room and tray by bedside , at end of tx. Assessment Current Status: Good Progress Pt c/o nausea throughout tx. PT Short Term Goals Short Term Goals Time Frame: September 05, 2017 Gait (FIM): 1 Gait Distance Comment: 40' Gait Level of Assist: 4 Gait Assistive Device: FWW Wheelchair Distance: 50' PT Pulmonology Physician Goals Half-Way Goals PT Pulmonology Physician Goals Time Frame: September 19, 2017 Transfers (B,C,W/C) (FIM): 5 Sit to Lying (QC): 6 Lying-Sitting on Side/Bed(QC): 6 Sit to Stand (QC): 4 Rollin Roll Left to Right (QC): 6 Chair/Hui-nd-[place]oa[place] Xfer(QC): 4 Car Transfer (QC): 4 Gait (FIM): 2 Distance: 100' Walk 10 feet (QC): 4 Walk 10ft-Uneven Surface(QC): 4 Walk 50ft with 2 Turns (QC): 4 Gait Level of Assist: 5 Gait Assistive Device: FWW Stairs (FIM): 2 # of Steps: 4 1 Step (curb) (QC): 4 4 Steps (QC): 4 Stairs Level Of Assist: 4 PT Plan Problem List Problem List: Activity Tolerance, Functional Strength, Safety, Balance, Gait, Transfer, Bed Mobility Treatment/Plan Treatment Plan: Continue Plan of Care Treatment Plan: Bed Mobility, Education, Functional Activity Jose David, Functional Strength, Group Therapy, Gait, Safety, Therapeutic Exercise, Transfers Treatment Duration: September 19, 2017 Frequency: At least 5 of 7 days/Wk (IRF) Estimated Hrs Per Day: 1.5 hours per day Patient and/or Family Agrees t: Yes Safety Risks/Education Patient Education: Gait Training, Transfer Techniques, Correct Positioning, Disease Process, Safety Issues Teaching Recipient: Patient Teaching Methods: Discussion Response to Teaching: Verbalize Understanding Time/GCodes Time In: 1400 Time Out: 1430 Total Billed Treatment Time: 30 Total Billed Treatment 1, GT (20m), FA (10m) G Codes Necessary: MASON Gonsalez SALES OPERATIONS COORDINATOR Aug 30, 2017 15:01
--- NOTE | 2017-08-30 16:33 | Individualized Plan of Care ---
Individualized Plan of Care Rehab Nursing IPOC Order Admission Date Aug 29, 2017 at 11:00 Current Orders Orders Admission Order(Inpt,Obs,Sdc) (08/29/17 11:38) Pt Evaluate/Treat Request (08/29/17 11:38) Request For Cognitive Services (08/29/17 11:38) Request Ot Evaluate & Treat (08/29/17 11:38) Code/Resuscitation (08/29/17 11:42) Accucheck Achs ACHS (08/29/17 11:42) Incentive Spirometry (Nursing) Q2H (08/29/17 11:42) Oxygen-Administer 07,19 (08/29/17 11:42) Sequential Compression Device 08,20 (08/29/17 11:42) Hao Hose 09,21 (08/29/17 11:42) Weight Bearing Status (08/29/17 11:42) Cho 60g/M 1snack (16-2000 Karlos) (08/29/17 Lunch) Allopurinol Tablet (Zyloprim Tablet) (08/29/17 21:00) Docusate Sodium Capsule (Colace Capsule) (08/29/17 21:00) Bisacodyl Tablet (Dulcolax Tablet) (08/29/17 11:45) Hydrocodone/Apap 5/325 Tablet (Lortab 5 (08/29/17 11:45) Losartan Tablet (Cozaar Tablet) (08/30/17 09:00) Enoxaparin Injection (Lovenox Injection) (08/29/17 20:00) Magnesium Hydroxide Oral Susp (Mom Oral (08/29/17 11:45) Insulin Aspart (Novolog) (Novolog (Charg (08/29/17 16:00) Sennosides Tablet (Senokot Tablet) (08/29/17 21:00) Timolol 0.5% Ophthalmic Soln (Timoptic 0 (08/29/17 21:00) Glyburide Tablet (Micronase Tablet) (08/30/17 06:30) Case Management Consult (08/29/17 11:42) Incentive Spirometry Initial (08/29/17 11:42) Occupational Therapy Order (08/29/17 11:42) Physical Therapy [place] (08/29/17 11:42) Request Ot Evaluate & Treat (08/29/17 11:42) Incentive Spirometry (Nursing) Q2H (08/29/17 11:42) Turn, Cough, And Deep Breathe (08/29/17 11:53) Aspirin Enteric Coated Tablet (Ecotrin T (08/29/17 21:00) Gemfibrozil Tablet (Lopid Tablet) (08/30/17 09:00) Therapeutic Multivitamin Tab (Vitamins, (08/30/17 07:00) [place] 3 Capsule (Fish Oil Capsule) (08/29/17 21:00) Carboxymethylcell Ophth Soln (Refresh Pl (08/29/17 12:00) Isolation Central Supply Req (08/29/17 11:59) Vital Signs: Every 4 Hours (Or ,18 (08/29/17 11:42) Vital Signs: Special (Ord) (08/29/17 12:01) Consult Physician (08/29/17 12:03) Patient Visit (08/29/17 ) Pt Eval Moderate Complexity (08/29/17 ) Gait Training, Ea 15 Min (08/29/17 ) Exercise Therap, Ea 15 Min (08/29/17 ) Ondansetron Oral Dissolve Tab (Zofran (08/29/17 12:45) Pastoral Consult (08/29/17 12:44) Patient Visit (08/29/17 ) Speech Sound Lang Comp (08/29/17 ) Ambulate TID (08/29/17 14:29) Sequential Compression Device 08,20 (08/29/17 14:29) Dvt/Vte Risk - Notifiy Physici 08 (08/29/17 14:29) Patient Visit (08/29/17 ) Exercise Therap, Ea 15 Min (08/29/17 ) Nursing Communication (Ord) (08/29/17 18:22) Rt Request For Service (Other) (08/29/17 19:43) Docusate Sodium Capsule (Colace Capsule) (08/30/17 11:45) Bisacodyl Suppository (Dulcolax Supposit (08/30/17 11:45) Lactulose Oral Solution (Enulose Oral So (08/30/17 21:00) Patient Visit (08/30/17 ) Gait Training, Ea 15 Min (08/30/17 ) Exercise Therap, Ea 15 Min (08/30/17 ) Functional Activities, Ea 15 (08/30/17 ) Other Nursing Orders: mONITOR FOR POSTOP CONSTIPATION AND URINARY RETENTION pAIN CONTROL Intensity of Therapy to be met Patient to be seen: Min.3h per day/5 of 7d PT IPOC Problem List: Activity Tolerance, Functional Strength, Safety, Balance, Gait, Transfer, Bed Mobility Treatment Plan: Continue Plan of Care Bed Mobility, Education, Functional Activity Jose David, Functional Strength, Group Therapy, Gait, Safety, Therapeutic Exercise, Transfers Treatment Duration: September 19, 2017 Frequency: At least 5 of 7 days/Wk (IRF) Estimated Hrs Per Day: 1.5 hours per day OT IPOC Problems: Decreased Activ Tolerance, Dependent Transfers, Impaired I ADL's, Impaired Self-Care Skills OT Treatment, Training and Edu: Yes OT Problems Pt admitted to ARU following acute hospitalization for left hip fracture. Pt is TTWB left LE. Pt demonstrates decreased ADL functioning, mobility, strength, and activity tolerance. Pt to benefit from skilled OT intervention for ADL training, transfers, strengthening, adaptive equipment training, and home safety education to increase level of independence and allow safe discharge. Plan of Care: ADL Retraining, Functional Mobility, Group Exercise/Act as Ind, UE Funct Exercise/Act Treatment Duration: September 19, 2017 Frequency: At least 5 of 7 days/Wk (IRF) Estimated Hrs Per Day: 1.[address] IPOC Speech Therapy Treatment Plan: Discontinue ST Treatment Duration: Aug 30, 2017 Frequency: Modified Program (IRF) (No ST warranted.) Estimated Hrs Per Day: Other (No ST warranted.) Restaurant Team Member/Case Mgmt Restaurant Team Member/Case Managemen: Discharge Planning, Patient/Family Counseling Physician IPOC Medical Issues being managed closely and that require the 24 hour availability of a physician: pOSTOP NAUSEA AND CONSTIPATION dm htn pAIN MANAGEMENT [facility] CODE 08.11 eTIOLOGIC dx mINIMALLY DISPLACED LEFT FEMORAL NECK FRACTURE Medical Issues: Bowel/Bladder Function, DVT Prophylaxis, Falls Precautions, Fluid/Electrolyte/Nutrition Balance, Infection Protection, Pain Management, Weight Bearing Precautions, Wound Care, Other (List) ( PER ABOVE) Brief Synthesis of Preadmission Screen, Post-Admission Evaluation, and Therapy Evaluations:81 YO FEMALE WHO HAD BEEN iNDEPENDENT AND LIVING WITH SPOUSE WHO HAS HAD A LEFT FEMUR FRACTURE REPAIR S/P FALL WITH ORTHOPEDICS pmh anD POSTOP ISSUES PER ABOVE pATIENT IS ttwb lle WHICH MAY REQUIRE REHAB GOALS TO BE FOCUSED ON W/C LEVEL OF FUNCTION Medical Prognosis: gOOD Anticipated Length of Stay: 09-19-17 Rehab Goals mODIFIED iNDEPENDENT FOR ADLS AND MOBILITY SKILLS Anticipated discharge destinat: h[facility] WITH [facility] AND SPOUSE LIBERTAD LIPSCOMB MD Aug 30, 2017 16:33
[2017-08-30 17:23] VITALS: BP 113/61
[2017-08-30] MEDS: OMEGA 3 (FISH OIL) 1000 MG CAP PO SCH (20:59)
[2017-08-30] MEDS: ASPIRIN E.C. 81 MG (ECOTRIN) TAB PO SCH (20:59)
[2017-08-30] MEDS: ALLOPURINOL 300 MG (ZYLOPRIM) TAB PO SCH (20:59)
[2017-08-30] MEDS: TIMOLOL MALEATE 0.5% 5 ML (TIMOPTIC) BTL OU SCH (21:08)
[2017-08-30] MEDS: LACTULOSE SYRUP 10GM/15ML (ENULOSE) 30ML UDC PO SCH (21:11)
[2017-08-31] MEDS: HYDROcodone/APAP 5 MG/325 MG (LORTAB) TAB PO PRN ×6 (01:34→22:48)
[2017-08-31 05:12] VITALS: BP 125/60
[2017-08-31] MEDS: MULTIVIT W/MINERALS TAB (THERAGRAN M) PO SCH (06:09)
[2017-08-31] MEDS: ONDANSETRON 4 MG (ZOFRAN) ORAL DISSOLVE TAB PO PRN ×2 (06:09→21:13)
[2017-08-31] MEDS: glyBURIDE 2.5 MG (MICRONASE) TAB PO SCH (06:09)
[2017-08-31] MEDS: inSUlin ASPART (NovoLOG) 1 UNIT/0.01 ML (CHARGE PER UNIT) SC SCH ×4 (06:13→21:00)
--- NOTE | 2017-08-31 08:29 | PM & R (SOAP) Progress Note ---
Subjective This was a face to face visit with the patient. Date Seen by Provider: Aug 31, 2017 Time Seen by Provider: 07:45 Subjective/Events-last exam Patient was seen in her room this AM Patient Min assist for transfers remains 02 dependent Didnt have 02 at home prior to this Otherwise doing well Review of Systems Pulmonary: Dyspnea Musculoskeletal: leg pain Neurological: Weakness Objective Physician Exam Last Set of Vital Signs Vital Signs Date Time Temp Pulse Resp B/P (MAP) Pulse Ox O2 Delivery O2 Flow Rate FiO2 08/31/17 05:12 97.9 75 18 125/60 (81) 95 Nasal Cannula 1.00 Capillary Refill : Less Than 3 Seconds I&O Intake and Output 08/31/17 00:00 Intake Total 1240 ml Balance 1240 ml Intake Oral 1240 ml # Voids 8 General: Alert, Oriented X3, Cooperative, No Acute Distress HEENT: Atraumatic, PERRLA, EOMI, Mucous Memb Moist/[place] Neck: Supple, No JVD Lungs: Clear to Auscultation Heart: Regular Rate Abdomen: Normal Bowel Sounds, Soft, No Tenderness Extremities: No Edema Neuro: Other (Sensation intact Cognition intact Strength good except for left LLE due to recent frx and repair) Results Lab Data Laboratory Tests 08/29/17 16:12: Glucometer 114H 08/29/17 20:57: Glucometer 152H 08/30/17 04:25: Glucometer 85 08/30/17 10:54: Glucometer 131H 08/30/17 15:53: Glucometer 122H 08/30/17 21:07: Glucometer 142H 08/31/17 06:13: Glucometer 95 Assessment/Plan Assessment and Plan Left hip fracture e/p fall s/p nailing TTWB LLE ortho OA s/p TKA HTN controlled DVT prophylaxis on Lovenox subcut DM controlled with current meds Hypercholesteremia on med Postop nausea resolved Plan Continue PT/OT Wean from 02 as able Current meds reviewed (1) Closed subcapital fracture of neck of left femur Status: Acute Co-Morbidities that are continuing to impact the rehab process: (include details ) LIBERTAD LIPSCOMB MD Aug 31, 2017 08:29
[2017-08-31] MEDS: GEMFIBROZIL 600 MG (LOPID) TAB PO SCH (08:53)
[2017-08-31] MEDS: LOSARTAN 25 MG (COZAAR) TAB PO SCH (08:53)
[2017-08-31] MEDS: SENNOSIDES 8.6 MG (SENOKOT) TAB PO SCH ×2 (08:53→21:14)
[2017-08-31] MEDS: DOCUSATE SODIUM 100 MG (COLACE) CAP PO SCH ×2 (08:53→21:13)
[2017-08-31] MEDS: LACTULOSE SYRUP 10GM/15ML (ENULOSE) 30ML UDC PO SCH ×2 (08:54→21:13)
[2017-08-31] MEDS: ENOXAPARIN 30 MG/0.3 ML (LOVENOX) SYR SC SCH ×2 (08:54→21:12)
[2017-08-31] MEDS: BISACODYL 10 MG SUPP (DULCOLAX) PR SCH ×2 (08:57→21:03)
--- NOTE | 2017-08-31 09:01 | Physical Therapy Daily Note ---
PT Daily Note-Current Subjective Pt sitting in recliner, daughter in room, upon arrival. Pt agrees to PT tx. Pain Numeric Pain Scale: 3 Location: Left Location Body Site: Hip Pain Description: Ache Comment: Pain increases w/ EX but not intolerable, then improves overall after up mo Mental Status Patient Orientation: Person, Place, Time, Situation Attachments: Oxygen (1L) Transfers Functional [place] Measure 0=Not Assessed/NA 4=Minimal Assistance 1=Total Assistance 5=Supervision or Setup 2=Maximal Assistance 6=Modified [place] 3=Moderate Assistance 7=Complete IndependenceIRFPAI Quality Coding Scale 6 Independent with activity with or without an assistive device 5 Patient requires set up or clean up by helper. Patient completes activity by themselves 4 Supervision or touching assist ([facility]). [place] provide cues , steadying assist 3 The helper provides less than half the effort to complete the activity 2 The helper provides more than half the effort to complete the activity 1 Dependent. The helper does all the effort to complete an activity 7 Patient refused to complete or attempt activity 9 The patient did not perform the activity before the current illness or injury 88 Not attempted due to Medical conditions or safety concerns Transfers (B, C, W/C) (FIM): 4 Scootin Supine to/from Sit: 4 Sit to/from Stand: 4 pt. TRFs into bed approaching with RLE which allows her more indep Weight Bearing Right Lower Extremity: Right Full Weight Bearing Left Lower Extremity: Left Touch Toe Bearing (pt. maintains this well consistently) Gait Training Does the Patient Walk?: Yes Gait (FIM): 4 Distance (FIM): 3=150 ft Distance: 150'x2 Gait Level of Assist: 4 Gait Persons Needed: 1 Gait Assistive Device: FWW Maintains toe touch wt bearing status. Stair Training no stair training as of yet as pt. has difficulty maintaining TTWB if she attempts it Exercises Supine Ex: Ankle pumps, Quad Set, Glut sets, Heel Slides, Short Arc Quads, Hip abd/add Supine Reps: 15 Seated Therapy Exercises: Ankle pumps, Long arc quads, Hip flexion Seated Reps: 15 Neuromuscular Pt transfer from recliner to standing at [facility]. Pt ambulates w/ FWW to Therapy Gym. Pt completes Seated EX and Supine EX at mat. Pt returns to room to rest in recliner w/ all needs met including call light in hand, O2 connected to wall unit and tray in front of recliner. Nursing enters room to give medication when PT exits, at end of tx. Assessment Current Status: Good Progress Pt has no c/o nausea today. progress noted in all phases of Rx PT Short Term Goals Short Term Goals Time Frame: September 05, 2017 Gait (FIM): 1 Gait Distance Comment: 40' Gait Level of Assist: 4 Gait Assistive Device: FWW Wheelchair Distance: 50' PT Penitentiary Goals Production Assembly Supervisor Goals PT Penitentiary Goals Time Frame: September 19, 2017 Transfers (B,C,W/C) (FIM): 5 Sit to Lying (QC): 6 Lying-Sitting on Side/Bed(QC): 6 Sit to Stand (QC): 4 Rollin Roll Left to Right (QC): 6 Chair/Ufq-id-Biihc Xfer(QC): 4 Car Transfer (QC): 4 Gait (FIM): 2 Distance: 100' Walk 10 feet (QC): 4 Walk 10ft-Uneven Surface(QC): 4 Walk 50ft with 2 Turns (QC): 4 Gait Level of Assist: 5 Gait Assistive Device: FWW Stairs (FIM): 2 # of Steps: 4 1 Step (curb) (QC): 4 4 Steps (QC): 4 Stairs Level Of Assist: 4 PT Plan Treatment/Plan Treatment Plan: Continue Plan of Care Treatment Plan: Bed Mobility, Education, Functional Activity Jose David, Functional Strength, Group Therapy, Gait, Safety, Therapeutic Exercise, Transfers Treatment Duration: September 19, 2017 Frequency: At least 5 of 7 days/Wk (IRF) Estimated Hrs Per Day: 1.5 hours per day Patient and/or Family Agrees t: Yes Safety Risks/Education Patient Education: Gait Training, Transfer Techniques, Correct Positioning, Disease Process, Safety Issues Teaching Recipient: Patient Teaching Methods: Demonstration, Discussion Response to Teaching: Verbalize Understanding, Reinforcement Needed Time/GCodes Time In: 0800 Time Out: 0900 Total Billed Treatment Time: 60 Total Billed Treatment 1, EX x2 (25m), FA (15m), GT (20m) G Codes Necessary: STEVIE White LABORATORY DIRECTOR Aug 31, 2017 09:01
--- NOTE | 2017-08-31 10:29 | Occupational Ther Daily Note ---
OT Current Status-Daily Note Subjective Pt alert, sitting in recliner. Pt agreed to therapy. Pt did c/o pain, did not rate. Reported to nrsg. Mental Status/Objective Patient Orientation: Person, Place, Time, Situation Functional [place] Measure 0=Not Assessed/NA 4=Minimal Assistance 1=Total Assistance 5=Supervision or Setup 2=Maximal Assistance 6=Modified [place] 3=Moderate Assistance 7=Complete [place] ADL-Treatment Pt declined shower or sponge bath today. Pt stated that she wants to take bathes every other day. Functional [place] Measure 0=Not Assessed/NA 4=Minimal Assistance 1=Total Assistance 5=Supervision or Setup 2=Maximal Assistance 6=Modified [place] 3=Moderate Assistance 7=Complete IndependenceIRFPAI Quality Coding Scale 6 Independent with activity with or without an assistive device 5 Patient requires set up or clean up by helper. Patient completes activity by themselves 4 Supervision or touching assist (CGA). [place] provide cues , steadying assist 3 The helper provides less than half the effort to complete the activity 2 The helper provides more than half the effort to complete the activity 1 Dependent. The helper does all the effort to complete an activity 7 Patient refused to complete or attempt activity 9 The patient did not perform the activity before the current illness or injury 88 Not attempted due to Medical conditions or safety concerns Other Treatment Pt ambulated to therapy gym using FWW very slowly. Pt then completed arm bike 15 min duration at 15 bennett resistance with multiple breaks to increase strength and activity tolerance for daily functional tasks. Pt then completed wrist flex/ext exercises with 2# wt, 3 sets 10 reps. Pt then ambulated back to room slowly, c/o increased pain reported to nrsg. Pt required assist to lift L LE into bed then pt was able to scoot self to position in bed. After therapy, pt lying in bed with call light/phone in reach. All needs met in room. Education OT Patient Education: Exercise program Teaching Recipient: Patient Teaching Methods: Demonstration, Discussion Response to Teaching: Verbalize Understanding, Return Demonstration OT Short Term Goals Short Term Goals Time Frame: September 05, 2017 Upper Body Dressing(FIM): 5 Lower Body Dressing(FIM): 4 Toileting(FIM): 5 Toilet/Commode Transfer(FIM): 5 Additional Short Term Goals: 1-Demonstrate ADL Tasks, 2-Verbalize Understanding , 3-ImproveStrength/Jose David 1=Demonstrate adherence to instructed precautions during ADL tasks. 2=Patient will verbalize/demonstrate understanding of assistive devices/ modifications for ADL. 3=Patient will improve strength/tolerance for activity to enable patient to perform ADL's. OT Longterm Goals Longterm Goals Time Frame: September 19, 2017 Eating (FIM): 6 Eating (QC): 6 Groomin Oral Hygiene (QC): 6 Bathing(FIM): 5 Shower/Bathe Self (QC): 5 Upper Body Dressing(FIM): 6 Upper Body Dressing (QC): 6 Lower Body Dressing(FIM): 5 Lower Body Dressing (QC): 5 On/Off Footwear (QC): 6 Toileting(FIM): 6 Toileting Hygiene (QC): 6 Toilet/Commode Transfer(FIM): 6 Toilet/Commode Transfer (QC): 6 Shower Transfer(FIM): 5 Additional Goals: 1-Demonstrate ADL Tasks, 2-Verbalize Understanding, 3- ImproveStrength/Jos Edavid 1=Demonstrate adherence to instructed precautions during ADL tasks. 2=Patient will verbalize/demonstrate understanding of assistive devices/ modifications for ADL. 3=Patient will improve strength/tolerance for activity to enable patient to perform ADL's. OT Education/Plan Problem List/Assessment Pt admitted to ARU following acute hospitalization for left hip fracture. Pt is TTWB left LE. Pt demonstrates decreased ADL functioning, mobility, strength, and activity tolerance. Pt to benefit from skilled OT intervention for ADL training, transfers, strengthening, adaptive equipment training, and home safety education to increase level of independence and allow safe discharge. Discharge Recommendations Plan/Recommendations: Continue POC Treatment Plan/Plan of Care Patient would benefit from OT for education, treatment and training to promote independence in ADL's, mobility, safety and/or upper extremity function for ADL' s. Plan of Care: ADL Retraining, Functional Mobility, Group Exercise/Act as Ind, UE Funct Exercise/Act Treatment Duration: September 19, 2017 Frequency: At least 5 of 7 days/Wk (IRF) Estimated Hrs Per Day: 1.5 hours per day Agreement: Yes Rehab Potential: Good Time/GCodes Start Time: 09:00 Stop Time: 10:00 Total Time Billed (hr/min): 60 Billed Treatment Time 1 visit-EX 2 (30 min) FA 2 (30 min) CRISTOBAL CANALES Aug 31, 2017 10:29
--- NOTE | 2017-08-31 14:23 | Therapy Group Daily Note ---
Therapy Daily Group Note Patient Education Topic Other List Below (managing pain at home, home exercise) Exercises LE Seated Exercise, UE Exercise Other/Notes Pt. participated in group PT OT session. Pt. ambulated to from group with FWW and assist. Pt. was social , introducing self and sharing a bit about childhood and siblings. Education focused on continuum of care and managing pain using cold packs and hot packs that can be made at home as well as use of cans of vegetables for 1 lb wts and Tband. Pt. also used small beach/kick ball for resisted abduction and participated in throwing/catching . Pt. to room after with assist. In bed, castillo at hand. Start Time: 13:00 Stop Time: 14:10 Total Billed Treatment Time: 70 Total Billed Treatment 1,GRP STEVIE BKAER SHREDDING SPECIALIST Aug 31, 2017 14:23
[2017-08-31 17:57] VITALS: BP 135/70
[2017-08-31] MEDS: ASPIRIN E.C. 81 MG (ECOTRIN) TAB PO SCH (21:13)
[2017-08-31] MEDS: OMEGA 3 (FISH OIL) 1000 MG CAP PO SCH (21:13)
[2017-08-31] MEDS: ALLOPURINOL 300 MG (ZYLOPRIM) TAB PO SCH (21:14)
[2017-08-31] MEDS: TIMOLOL MALEATE 0.5% 5 ML (TIMOPTIC) BTL OU SCH (21:16)
[2017-09-01] MEDS: ONDANSETRON 4 MG (ZOFRAN) ORAL DISSOLVE TAB PO PRN (03:27)
[2017-09-01] MEDS: HYDROcodone/APAP 5 MG/325 MG (LORTAB) TAB PO PRN ×3 (03:27→16:23)
[2017-09-01] MEDS: MULTIVIT W/MINERALS TAB (THERAGRAN M) PO SCH (06:42)
[2017-09-01] MEDS: inSUlin ASPART (NovoLOG) 1 UNIT/0.01 ML (CHARGE PER UNIT) SC SCH ×4 (06:42→20:51)
[2017-09-01] MEDS: glyBURIDE 2.5 MG (MICRONASE) TAB PO SCH (06:42)
[2017-09-01 06:51] VITALS: BP 144/74
[2017-09-01] MEDS: ENOXAPARIN 30 MG/0.3 ML (LOVENOX) SYR SC SCH ×2 (08:20→20:24)
[2017-09-01] MEDS: GEMFIBROZIL 600 MG (LOPID) TAB PO SCH (08:20)
[2017-09-01] MEDS: LOSARTAN 25 MG (COZAAR) TAB PO SCH (08:20)
[2017-09-01] MEDS: BISACODYL 10 MG SUPP (DULCOLAX) PR SCH ×2 (08:23→19:49)
[2017-09-01] MEDS: DOCUSATE SODIUM 100 MG (COLACE) CAP PO SCH ×2 (08:23→20:22)
[2017-09-01] MEDS: SENNOSIDES 8.6 MG (SENOKOT) TAB PO SCH ×2 (08:23→20:22)
[2017-09-01] MEDS: LACTULOSE SYRUP 10GM/15ML (ENULOSE) 30ML UDC PO SCH ×2 (08:23→20:22)
--- NOTE | 2017-09-01 12:44 | Physical Therapy Daily Note ---
PT Daily Note-Current Subjective Pt. in bed on arrival. Agrees to gait and exercise Pain Numeric Pain Scale: 0-No Pain Mental Status Patient Orientation: Normal For Age Attachments: Oxygen Transfers Functional [place] Measure 0=Not Assessed/NA 4=Minimal Assistance 1=Total Assistance 5=Supervision or Setup 2=Maximal Assistance 6=Modified [place] 3=Moderate Assistance 7=Complete IndependenceIRFPAI Quality Coding Scale 6 Independent with activity with or without an assistive device 5 Patient requires set up or clean up by helper. Patient completes activity by themselves 4 Supervision or touching assist (CGA). [place] provide cues , steadying assist 3 The helper provides less than half the effort to complete the activity 2 The helper provides more than half the effort to complete the activity 1 Dependent. The helper does all the effort to complete an activity 7 Patient refused to complete or attempt activity 9 The patient did not perform the activity before the current illness or injury 88 Not attempted due to Medical conditions or safety concerns Transfers (B, C, W/C) (FIM): 4 Scootin Rollin Supine to/from Sit: 4 Sit to/from Stand: 5 Weight Bearing Right Lower Extremity: Right Full Weight Bearing Left Lower Extremity: Left Touch Toe Bearing (pt. maintains this well consistently) Gait Training Does the Patient Walk?: Yes Gait (FIM): 4 Distance (FIM): 3=150 ft (x2) Gait Level of Assist: 4 Gait Persons Needed: 1 Gait Assistive Device: FWW step to gait, TDWB maintained well. needs assist for O2 Exercises Seated Therapy Exercises: Ankle pumps, Sit to stand, Long arc quads, Hip flexion Seated Reps: 10 Assessment Current Status: Good Progress PT Short Term Goals Short Term Goals Time Frame: September 05, 2017 Gait (FIM): 1 Gait Distance Comment: 40' Gait Level of Assist: 4 Gait Assistive Device: FWW Wheelchair Distance: 50' PT Reconciliation Clerk Goals Fpc Goals PT Reconciliation Clerk Goals Time Frame: September 19, 2017 Transfers (B,C,W/C) (FIM): 5 Sit to Lying (QC): 6 Lying-Sitting on Side/Bed(QC): 6 Sit to Stand (QC): 4 Rollin Roll Left to Right (QC): 6 Chair/Oja-jg-Tjutu Xfer(QC): 4 Car Transfer (QC): 4 Gait (FIM): 2 Distance: 100' Walk 10 feet (QC): 4 Walk 10ft-Uneven Surface(QC): 4 Walk 50ft with 2 Turns (QC): 4 Gait Level of Assist: 5 Gait Assistive Device: FWW Stairs (FIM): 2 # of Steps: 4 1 Step (curb) (QC): 4 4 Steps (QC): 4 Stairs Level Of Assist: 4 PT Plan Treatment/Plan Treatment Plan: Continue Plan of Care Treatment Plan: Bed Mobility, Education, Functional Activity Jose David, Functional Strength, Group Therapy, Gait, Safety, Therapeutic Exercise, Transfers Treatment Duration: September 19, 2017 Frequency: At least 5 of 7 days/Wk (IRF) Estimated Hrs Per Day: 1.5 hours per day Patient and/or Family Agrees t: Yes Safety Risks/Education Patient Education: Gait Training, Transfer Techniques Teaching Recipient: Patient Teaching Methods: Demonstration, Discussion Response to Teaching: Verbalize Understanding, Return Demonstration, Reinforcement Needed Time/GCodes Time In: 935 Time Out: 1000 Total Billed Treatment Time: 25 Total Billed Treatment 1,EX10m,GT15m G Codes Necessary: STEVIE White HARDWARE DESIGNER Sep 01, 2017 12:44
[2017-09-01 17:27] VITALS: BP 139/68
[2017-09-01] MEDS: ALLOPURINOL 300 MG (ZYLOPRIM) TAB PO SCH (20:24)
[2017-09-01] MEDS: ASPIRIN E.C. 81 MG (ECOTRIN) TAB PO SCH (20:24)
[2017-09-01] MEDS: OMEGA 3 (FISH OIL) 1000 MG CAP PO SCH (20:25)
[2017-09-01] MEDS: TIMOLOL MALEATE 0.5% 5 ML (TIMOPTIC) BTL OU SCH (20:25)
[2017-09-02] MEDS: HYDROcodone/APAP 5 MG/325 MG (LORTAB) TAB PO PRN ×6 (00:14→21:34)
[2017-09-02 05:02] VITALS: BP 155/80
[2017-09-02] MEDS: glyBURIDE 2.5 MG (MICRONASE) TAB PO SCH (06:33)
[2017-09-02] MEDS: MULTIVIT W/MINERALS TAB (THERAGRAN M) PO SCH (06:33)
[2017-09-02] MEDS: inSUlin ASPART (NovoLOG) 1 UNIT/0.01 ML (CHARGE PER UNIT) SC SCH ×4 (06:34→20:34)
[2017-09-02] MEDS: GEMFIBROZIL 600 MG (LOPID) TAB PO SCH (07:46)
[2017-09-02] MEDS: ENOXAPARIN 30 MG/0.3 ML (LOVENOX) SYR SC SCH ×2 (07:46→20:26)
[2017-09-02] MEDS: LOSARTAN 25 MG (COZAAR) TAB PO SCH (07:46)
[2017-09-02] MEDS: BISACODYL 10 MG SUPP (DULCOLAX) PR SCH ×2 (07:47→19:37)
[2017-09-02] MEDS: DOCUSATE SODIUM 100 MG (COLACE) CAP PO SCH ×2 (07:47→19:37)
[2017-09-02] MEDS: LACTULOSE SYRUP 10GM/15ML (ENULOSE) 30ML UDC PO SCH ×2 (07:47→19:37)
[2017-09-02] MEDS: SENNOSIDES 8.6 MG (SENOKOT) TAB PO SCH ×2 (07:47→19:37)
[2017-09-02 17:52] VITALS: BP 141/60
[2017-09-02] MEDS: ALLOPURINOL 300 MG (ZYLOPRIM) TAB PO SCH (20:26)
[2017-09-02] MEDS: OMEGA 3 (FISH OIL) 1000 MG CAP PO SCH (20:26)
[2017-09-02] MEDS: ASPIRIN E.C. 81 MG (ECOTRIN) TAB PO SCH (20:26)
[2017-09-02] MEDS: TIMOLOL MALEATE 0.5% 5 ML (TIMOPTIC) BTL OU SCH (20:29)
[2017-09-03] MEDS: HYDROcodone/APAP 5 MG/325 MG (LORTAB) TAB PO PRN ×5 (01:07→22:24)
[2017-09-03 05:02] VITALS: BP 162/60
[2017-09-03] MEDS: glyBURIDE 2.5 MG (MICRONASE) TAB PO SCH (06:23)
[2017-09-03] MEDS: MULTIVIT W/MINERALS TAB (THERAGRAN M) PO SCH (06:23)
[2017-09-03] MEDS: inSUlin ASPART (NovoLOG) 1 UNIT/0.01 ML (CHARGE PER UNIT) SC SCH ×4 (06:23→21:25)
[2017-09-03] MEDS: GEMFIBROZIL 600 MG (LOPID) TAB PO SCH (08:31)
[2017-09-03] MEDS: ENOXAPARIN 30 MG/0.3 ML (LOVENOX) SYR SC SCH ×2 (08:32→21:02)
[2017-09-03] MEDS: LOSARTAN 25 MG (COZAAR) TAB PO SCH (08:32)
[2017-09-03] MEDS: BISACODYL 10 MG SUPP (DULCOLAX) PR SCH ×2 (09:44→21:07)
--- NOTE | 2017-09-03 09:48 | Occupational Ther Daily Note ---
OT Current Status-Daily Note Subjective Pt alert, lying in bed. Pt agreed to therapy. No c/o pain. Mental Status/Objective Patient Orientation: Person, Place, Time, Situation Functional [place] Measure 0=Not Assessed/NA 4=Minimal Assistance 1=Total Assistance 5=Supervision or Setup 2=Maximal Assistance 6=Modified [place] 3=Moderate Assistance 7=Complete [place] ADL-Treatment Functional [place] Measure 0=Not Assessed/NA 4=Minimal Assistance 1=Total Assistance 5=Supervision or Setup 2=Maximal Assistance 6=Modified [place] 3=Moderate Assistance 7=Complete IndependenceIRFPAI Quality Coding Scale 6 Independent with activity with or without an assistive device 5 Patient requires set up or clean up by helper. Patient completes activity by themselves 4 Supervision or touching assist (CGA). [place] provide cues , steadying assist 3 The helper provides less than half the effort to complete the activity 2 The helper provides more than half the effort to complete the activity 1 Dependent. The helper does all the effort to complete an activity 7 Patient refused to complete or attempt activity 9 The patient did not perform the activity before the current illness or injury 88 Not attempted due to Medical conditions or safety concerns Grooming (FIM): 6 (Using FWW for balance, pt stands at sink to complete own grooming.) Oral Hygiene (QC): 6 Bathing (FIM): 5 (Supervision with bathing using grabbar, hand held shower and shower bench to complete bathing/drying.) Shower/Bathe Self (QC): 4 Upper Body (FIM): 5 (After set up, pt able to complete dressing.) Upper Body Dressing (QC): 5 Lower Body Dressing (FIM): 5 (After set up, pt able to complete dressing using AE. Supervision in standing for safety to hike pants over hips.) Lower Body Dressing (QC): 4 On/Off Footwear (QC): 5 Toileting (FIM): 4 (Pt able to manipulate clothing then reaches areas to clean. Assist to efficiently cleanse buttocks after BM.) Toileting Hygiene (QC): 4 Transfers (B, C, W/C) (FIM): 5 Toilet/Commode Transfer (FIM): 5 (Using grabbars and FWW, pt able to complete with supervision.) Toilet Transfer (QC): 4 Shower Transfer(FIM): 5 (SBA using grabbars, FWW and shower bench to complete transfer.) Other Treatment Pt completed light resistance theraband exercises for UE, 3 exercises 2 sets 10 reps. Pt tolerated well. Required verbal directions to remember exercises. Assist needed to lift L LE into bed then assist to scoot L LE in bed. After therapy, pt lying in bed with call light/phone in reach. All needs met in room. OT Short Term Goals Short Term Goals Time Frame: September 05, 2017 Upper Body Dressing(FIM): 5 Lower Body Dressing(FIM): 4 Toileting(FIM): 5 Toilet/Commode Transfer(FIM): 5 Additional Short Term Goals: 1-Demonstrate ADL Tasks, 2-Verbalize Understanding , 3-ImproveStrength/Jose David 1=Demonstrate adherence to instructed precautions during ADL tasks. 2=Patient will verbalize/demonstrate understanding of assistive devices/ modifications for ADL. 3=Patient will improve strength/tolerance for activity to enable patient to perform ADL's. OT Parachute Folder Goals Detention Goals Time Frame: September 19, 2017 Eating (FIM): 6 Eating (QC): 6 Groomin Oral Hygiene (QC): 6 Bathing(FIM): 5 Shower/Bathe Self (QC): 5 Upper Body Dressing(FIM): 6 Upper Body Dressing (QC): 6 Lower Body Dressing(FIM): 5 Lower Body Dressing (QC): 5 On/Off Footwear (QC): 6 Toileting(FIM): 6 Toileting Hygiene (QC): 6 Toilet/Commode Transfer(FIM): 6 Toilet/Commode Transfer (QC): 6 Shower Transfer(FIM): 5 Additional Goals: 1-Demonstrate ADL Tasks, 2-Verbalize Understanding, 3- ImproveStrength/Jose David 1=Demonstrate adherence to instructed precautions during ADL tasks. 2=Patient will verbalize/demonstrate understanding of assistive devices/ modifications for ADL. 3=Patient will improve strength/tolerance for activity to enable patient to perform ADL's. OT Education/Plan Problem List/Assessment Pt admitted to ARU following acute hospitalization for left hip fracture. Pt is TTWB left LE. Pt demonstrates decreased ADL functioning, mobility, strength, and activity tolerance. Pt to benefit from skilled OT intervention for ADL training, transfers, strengthening, adaptive equipment training, and home safety education to increase level of independence and allow safe discharge. Discharge Recommendations Plan/Recommendations: Continue POC Treatment Plan/Plan of Care Patient would benefit from OT for education, treatment and training to promote independence in ADL's, mobility, safety and/or upper extremity function for ADL' s. Plan of Care: ADL Retraining, Functional Mobility, Group Exercise/Act as Ind, UE Funct Exercise/Act Treatment Duration: September 19, 2017 Frequency: At least 5 of 7 days/Wk (IRF) Estimated Hrs Per Day: 1.5 hours per day Agreement: Yes Rehab Potential: Good Time/GCodes Start Time: 08:40 Stop Time: 09:40 Total Time Billed (hr/min): 60 Billed Treatment Time 1 visit-ADL 3 (50 min) EX 1 (10 min) CRISTOBAL CANALES Sep 03, 2017 09:48
[2017-09-03] MEDS: LACTULOSE SYRUP 10GM/15ML (ENULOSE) 30ML UDC PO SCH ×2 (09:52→21:02)
[2017-09-03] MEDS: SENNOSIDES 8.6 MG (SENOKOT) TAB PO SCH ×2 (09:52→21:02)
[2017-09-03] MEDS: DOCUSATE SODIUM 100 MG (COLACE) CAP PO SCH ×2 (09:53→21:01)
--- NOTE | 2017-09-03 11:43 | Physical Therapy Daily Note ---
PT Daily Note-Current Subjective Pt. agrees to Rx . States she didnt sleep well last night. C/o pain in left knee being her primary c/o throughout this crisis and would like to make sure her knee is ok. States she feels more comfortable getting in out on left side of bed but can move to another bed home to get in on whatever side works best but she has 5 steps to get up stairs to her bed....split level home Pain Numeric Pain Scale: 6 Location: Left Location Body Site: Knee Pain Description: Tightness Mental Status Patient Orientation: Normal For Age Transfers Functional [place] Measure 0=Not Assessed/NA 4=Minimal Assistance 1=Total Assistance 5=Supervision or Setup 2=Maximal Assistance 6=Modified [place] 3=Moderate Assistance 7=Complete IndependenceIRFPAI Quality Coding Scale 6 Independent with activity with or without an assistive device 5 Patient requires set up or clean up by helper. Patient completes activity by themselves 4 Supervision or touching assist (CGA). [place] provide cues , steadying assist 3 The helper provides less than half the effort to complete the activity 2 The helper provides more than half the effort to complete the activity 1 Dependent. The helper does all the effort to complete an activity 7 Patient refused to complete or attempt activity 9 The patient did not perform the activity before the current illness or injury 88 Not attempted due to Medical conditions or safety concerns Transfers (B, C, W/C) (FIM): 5 Scootin Rollin Supine to/from Sit: 5 Sit to/from Stand: 6 pt. enters and exit bed best by putting RLE into bed first. when exiting bed pt. does best if she can reach for stable object at bedside, this EDUCATION COURSES SALES REPRESENTATIVE held the FWW stable simulating a bed cane Weight Bearing Right Lower Extremity: Right Full Weight Bearing Left Lower Extremity: Left Touch Toe Bearing (pt. maintains this well consistently) Gait Training Does the Patient Walk?: Yes Gait (FIM): 5 Distance (FIM): 3=150 ft (x2) Gait Level of Assist: 5 Gait Persons Needed: 1 Gait Assistive Device: FWW assist for O2 at 1L Stair Training unsafe to trial steps as pt. is TDWBing and feels she could not maintain this if trialing steps Exercises Supine Ex: Ankle pumps, Quad Set, Rolling, Heel Slides, Short Arc Quads, Scooting, Straight leg raise, Hip abd/add Supine Reps: 12 Seated Therapy Exercises: Ankle pumps, Sit to stand, Long arc quads Seated Reps: 10 Treatments emphasized in out bed TRFs this date Assessment Current Status: Good Progress will report pts left knee c/o and request XR PT Short Term Goals Short Term Goals Time Frame: September 05, 2017 Gait (FIM): 1 Gait Distance Comment: 40' Gait Level of Assist: 4 Gait Assistive Device: FWW Wheelchair Distance: 50' PT Job Compositor Goals Assisted Goals PT Assisted Goals Time Frame: September 19, 2017 Transfers (B,C,W/C) (FIM): 5 Sit to Lying (QC): 6 Lying-Sitting on Side/Bed(QC): 6 Sit to Stand (QC): 4 Rollin Roll Left to Right (QC): 6 Chair/Mrq-zw-Ggeku Xfer(QC): 4 Car Transfer (QC): 4 Gait (FIM): 2 Distance: 100' Walk 10 feet (QC): 4 Walk 10ft-Uneven Surface(QC): 4 Walk 50ft with 2 Turns (QC): 4 Gait Level of Assist: 5 Gait Assistive Device: FWW Stairs (FIM): 2 # of Steps: 4 1 Step (curb) (QC): 4 4 Steps (QC): 4 Stairs Level Of Assist: 4 PT Plan Treatment/Plan Treatment Plan: Continue Plan of Care Treatment Plan: Bed Mobility, Education, Functional Activity Jose David, Functional Strength, Group Therapy, Gait, Safety, Therapeutic Exercise, Transfers Treatment Duration: September 19, 2017 Frequency: At least 5 of 7 days/Wk (IRF) Estimated Hrs Per Day: 1.5 hours per day Patient and/or Family Agrees t: Yes Safety Risks/Education Patient Education: Gait Training, Transfer Techniques, Correct Positioning, Disease Process, Safety Issues Teaching Recipient: Patient Teaching Methods: Demonstration, Discussion Response to Teaching: Verbalize Understanding, Return Demonstration, Reinforcement Needed Time/GCodes Time In: 1035 Time Out: 1135 Total Billed Treatment Time: 60 Total Billed Treatment 1,EX20m,FA25m,GT15m G Codes Necessary: STEVIE White EDUCATION COURSES SALES REPRESENTATIVE Sep 03, 2017 11:43
--- NOTE | 2017-09-03 15:04 | Therapy Group Daily Note ---
Therapy Daily Group Note Patient Education Topic Home Safety, Other List Below (rehab process and requirements) Exercises LE Seated Exercise, UE Exercise Other/Notes Pt. participated in group PT OT session this date. Pt. ambulated to/from with FWW and assistance for O2. 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 Pts. were educated in the differing disciplines of rehab and their roles. Home safety was a focus as well as the importance of activity and exercise for health at any stage in life. Seated U&L extremity exercises were done. Pts also participated in seated balloon volleyball, facing each other in 2 rows, using hands and feet. Lots of laughter and team work was enjoyed. Pt. to her room after with SBA to toilet and assist to bed. Call castillo at hand. Start Time: 13:00 Stop Time: 14:35 Total Billed Treatment Time: 95 Total Billed Treatment 1,GRP STEVIE BAKER REFINERY TECHNICIAN Sep 03, 2017 15:04
--- NOTE | 2017-09-03 15:35 | PM & R (SOAP) Progress Note ---
Subjective This was a face to face visit with the patient. Date Seen by Provider: Sep 03, 2017 Time Seen by Provider: 15:20 Subjective/Events-last exam Patient was seen in her room this afternoon Patient SBA for transfers remains on by MS 1 liter per minute Objective Physician Exam Last Set of Vital Signs Vital Signs Date Time Temp Pulse Resp B/P (MAP) Pulse Ox O2 Delivery O2 Flow Rate FiO2 09/03/17 08:35 Nasal Cannula 1.00 09/03/17 05:02 98.2 76 20 162/60 (94) 91 Capillary Refill : Less Than 3 Seconds I&O Intake and Output 09/03/17 00:00 Intake Total 1120 ml Output Total 4 ml Balance 1116 ml Intake Oral 1120 ml Output Urine Total 4 ml # Voids 5 # Bowel Movements 1 General: Alert, Oriented X3, Cooperative, No Acute Distress HEENT: Atraumatic, PERRLA, EOMI, Mucous Memb Moist/[place] Neck: Supple, No JVD Lungs: Clear to Auscultation Heart: Regular Rate Abdomen: Normal Bowel Sounds, Soft, No Tenderness Extremities: No Edema Neuro: Other (Sensation intact Cognition intact Strength good except for left LLE due to recent frx and repair) Results Lab Data Laboratory Tests 08/31/17 15:55: Glucometer 116H 08/31/17 21:27: Glucometer 124H 09/01/17 05:16: Glucometer 102 09/01/17 11:09: Glucometer 98 09/01/17 16:14: Glucometer 96 09/01/17 20:46: Glucometer 128H 09/02/17 06:32: Glucometer 95 09/02/17 10:36: Glucometer 90 09/02/17 16:49: Glucometer 95 09/02/17 20:25: Glucometer 155H 09/03/17 06:22: Glucometer 100 09/03/17 10:20: Glucometer 100 Assessment/Plan Assessment and Plan Hip Fracture s/p repair DM controlled HTN controlled Plan Continue PT/OT Wean from as able Team Conference 09-05-17 (1) Closed subcapital fracture of neck of left femur Status: Acute Co-Morbidities that are continuing to impact the rehab process: (include details ) LIBERTAD LIPSCOMB MD Sep 03, 2017 15:35
--- NOTE | 2017-09-03 15:51 | Therapy Group Daily Note ---
Therapy Daily Group Note Patient Education Topic Home Safety CRISTOBAL CANALES Sep 03, 2017 15:51
[2017-09-03 17:57] VITALS: BP 134/73
[2017-09-03] MEDS: ALLOPURINOL 300 MG (ZYLOPRIM) TAB PO SCH (21:01)
[2017-09-03] MEDS: OMEGA 3 (FISH OIL) 1000 MG CAP PO SCH (21:01)
[2017-09-03] MEDS: ASPIRIN E.C. 81 MG (ECOTRIN) TAB PO SCH (21:02)
[2017-09-03] MEDS: TIMOLOL MALEATE 0.5% 5 ML (TIMOPTIC) BTL OU SCH (21:03)
[2017-09-04 05:09] VITALS: BP 163/82
[2017-09-04] MEDS: inSUlin ASPART (NovoLOG) 1 UNIT/0.01 ML (CHARGE PER UNIT) SC SCH ×4 (05:41→21:00)
[2017-09-04] MEDS: glyBURIDE 2.5 MG (MICRONASE) TAB PO SCH (06:20)
[2017-09-04] MEDS: MULTIVIT W/MINERALS TAB (THERAGRAN M) PO SCH (06:20)
[2017-09-04] MEDS: GEMFIBROZIL 600 MG (LOPID) TAB PO SCH (08:22)
[2017-09-04] MEDS: LOSARTAN 25 MG (COZAAR) TAB PO SCH (08:22)
[2017-09-04] MEDS: BISACODYL 10 MG SUPP (DULCOLAX) PR SCH ×2 (08:22→21:00)
[2017-09-04] MEDS: ENOXAPARIN 30 MG/0.3 ML (LOVENOX) SYR SC SCH ×2 (08:22→20:23)
[2017-09-04] MEDS: DOCUSATE SODIUM 100 MG (COLACE) CAP PO SCH ×2 (08:23→21:00)
[2017-09-04] MEDS: LACTULOSE SYRUP 10GM/15ML (ENULOSE) 30ML UDC PO SCH ×2 (08:24→21:00)
[2017-09-04] MEDS: SENNOSIDES 8.6 MG (SENOKOT) TAB PO SCH ×2 (08:24→21:24)
[2017-09-04] MEDS: MILK OF MAGNESIA 400 MG/5 ML 30 ML UDC PO PRN (08:26)
--- NOTE | 2017-09-04 10:22 | Occupational Ther Daily Note ---
OT Current Status-Daily Note Subjective Pt alert, lying in bed. Pt agreed to therapy. No c/o pain. Mental Status/Objective Patient Orientation: Person, Place, Time, Situation Functional [place] Measure 0=Not Assessed/NA 4=Minimal Assistance 1=Total Assistance 5=Supervision or Setup 2=Maximal Assistance 6=Modified [place] 3=Moderate Assistance 7=Complete [place] ADL-Treatment Pt declined completing shower today. Pt able to go from supine to sitting EOB by self with HOB raised and bedrails. Pt was able to stand at sink with FWW to complete partial sponge bath and grooming. Functional [place] Measure 0=Not Assessed/NA 4=Minimal Assistance 1=Total Assistance 5=Supervision or Setup 2=Maximal Assistance 6=Modified [place] 3=Moderate Assistance 7=Complete IndependenceIRFPAI Quality Coding Scale 6 Independent with activity with or without an assistive device 5 Patient requires set up or clean up by helper. Patient completes activity by themselves 4 Supervision or touching assist (CGA). [place] provide cues , steadying assist 3 The helper provides less than half the effort to complete the activity 2 The helper provides more than half the effort to complete the activity 1 Dependent. The helper does all the effort to complete an activity 7 Patient refused to complete or attempt activity 9 The patient did not perform the activity before the current illness or injury 88 Not attempted due to Medical conditions or safety concerns Grooming (FIM): 6 Oral Hygiene (QC): 6 On/Off Footwear (QC): 6 (Using AE pt able to don shoes by self.) Other Treatment Pt ambulated to therapy gym using FWW. Pt completed arm bike 15 min duration at 20 bennett resistance, frequent breaks taken, to increase strength and activity tolerance for daily functional tasks. Resistive pegs completed 50 each hand to increase woodworking machine feeder and pinch strength for dressing. Fine motor task completed to increase dexterity and manipulation. Pt worked on B UE activity to work on shldr strengthening. After therapy, pt sitting in chair with arms. present in room. All needs met in room. OT Short Term Goals Short Term Goals Time Frame: September 05, 2017 Upper Body Dressing(FIM): 5 Lower Body Dressing(FIM): 4 Toileting(FIM): 5 Toilet/Commode Transfer(FIM): 5 Additional Short Term Goals: 1-Demonstrate ADL Tasks, 2-Verbalize Understanding , 3-ImproveStrength/Jose David 1=Demonstrate adherence to instructed precautions during ADL tasks. 2=Patient will verbalize/demonstrate understanding of assistive devices/ modifications for ADL. 3=Patient will improve strength/tolerance for activity to enable patient to perform ADL's. OT Correction Goals Correction Goals Time Frame: September 19, 2017 Eating (FIM): 6 Eating (QC): 6 Groomin Oral Hygiene (QC): 6 Bathing(FIM): 5 Shower/Bathe Self (QC): 5 Upper Body Dressing(FIM): 6 Upper Body Dressing (QC): 6 Lower Body Dressing(FIM): 5 Lower Body Dressing (QC): 5 On/Off Footwear (QC): 6 Toileting(FIM): 6 Toileting Hygiene (QC): 6 Toilet/Commode Transfer(FIM): 6 Toilet/Commode Transfer (QC): 6 Shower Transfer(FIM): 5 Additional Goals: 1-Demonstrate ADL Tasks, 2-Verbalize Understanding, 3- ImproveStrength/Jose David 1=Demonstrate adherence to instructed precautions during ADL tasks. 2=Patient will verbalize/demonstrate understanding of assistive devices/ modifications for ADL. 3=Patient will improve strength/tolerance for activity to enable patient to perform ADL's. OT Education/Plan Problem List/Assessment Pt admitted to ARU following acute hospitalization for left hip fracture. Pt is TTWB left LE. Pt demonstrates decreased ADL functioning, mobility, strength, and activity tolerance. Pt to benefit from skilled OT intervention for ADL training, transfers, strengthening, adaptive equipment training, and home safety education to increase level of independence and allow safe discharge. Discharge Recommendations Plan/Recommendations: Continue POC Treatment Plan/Plan of Care Patient would benefit from OT for education, treatment and training to promote independence in ADL's, mobility, safety and/or upper extremity function for ADL' s. Plan of Care: ADL Retraining, Functional Mobility, Group Exercise/Act as Ind, UE Funct Exercise/Act Treatment Duration: September 19, 2017 Frequency: At least 5 of 7 days/Wk (IRF) Estimated Hrs Per Day: 1.5 hours per day Agreement: Yes Rehab Potential: Good Time/GCodes Start Time: 09:30 Stop Time: 11:00 Total Time Billed (hr/min): 90 Billed Treatment Time 1 visit-ADL 2 (35 min) EX 4 (55 min) CRISTOBAL CANALES September 04, 2017 10:22
--- NOTE | 2017-09-04 12:07 | Physical Therapy Daily Note ---
PT Daily Note-Current Subjective Pt sitting in chair visiting with Sp upon arrival. Pt agrees to PT. Pain Numeric Pain Scale: 8 Location: Left Location Body Site: Knee Pain Description: Stabbing Mental Status Patient Orientation: Person, Place, Time, Situation Transfers Functional [place] Measure 0=Not Assessed/NA 4=Minimal Assistance 1=Total Assistance 5=Supervision or Setup 2=Maximal Assistance 6=Modified [place] 3=Moderate Assistance 7=Complete IndependenceIRFPAI Quality Coding Scale 6 Independent with activity with or without an assistive device 5 Patient requires set up or clean up by helper. Patient completes activity by themselves 4 Supervision or touching assist (CGA). [place] provide cues , steadying assist 3 The helper provides less than half the effort to complete the activity 2 The helper provides more than half the effort to complete the activity 1 Dependent. The helper does all the effort to complete an activity 7 Patient refused to complete or attempt activity 9 The patient did not perform the activity before the current illness or injury 88 Not attempted due to Medical conditions or safety concerns Scootin Sit to/from Stand: 6 Sit to Stand (QC): 6 Car Transfer (QC): 5 Weight Bearing Right Lower Extremity: Right Full Weight Bearing Left Lower Extremity: Left Touch Toe Bearing (pt. maintains this well consistently) Gait Training Does the Patient Walk?: Yes Distance (FIM): 3=150 ft Distance: 150' Walk 10 feet (QC): 5 Walk 50 ft with 2 Turns(QC): 5 Walk 150 ft (QC): 5 Gait Level of Assist: 5 Gait Assistive Device: FWW Pt walks with almost a slight hop but maintains WBing status. is wanting to discharge home but has stairs that she cannot ambulate at this time. Wheelchair Training Does the Pt Use a Wheelchair?: No Stair Training TELLER COORDINATOR did not attempt this at this time due to pt's WBing status but pt does have 5 stairs to get up to bedroom. Pt reports could stay on main level of split level house until bed if needed. Exercises Seated Therapy Exercises: Ankle pumps, Long arc quads, Hip flexion, Kicking activity, Hip abd/add Seated Reps: 20 Treatments Pt uses restroom as well as has Blood Sugar tested by Aide (it was 84) before leaving room for tx. Pt transfers from chair at Mod I. Pt ambulates in hallway using FWW at SBA. Pt completes Seated Ex and car transfer before walking back to room. Pt rests in recliner and lunch arrives at end of tx. Pt has all needs met, including call light. Assessment Current Status: Good Progress Pt has improved with strength, independence and safety of tasks. Pt maintains WB status well. Pt wants to discharge home with Sp, family can assist with managing stairs at home per pt. Pt plans to stay on main level of house so only have to go up & down first thing in morning and at bed time. PT Short Term Goals Short Term Goals Time Frame: September 05, 2017 Gait (FIM): 1 Gait Distance Comment: 40' Gait Level of Assist: 4 Gait Assistive Device: FWW Wheelchair Distance: 50' PT Manufactured Buildings Repairer Goals Manufactured Buildings Repairer Goals PT Alf Goals Time Frame: September 19, 2017 Transfers (B,C,W/C) (FIM): 5 Sit to Lying (QC): 6 Lying-Sitting on Side/Bed(QC): 6 Sit to Stand (QC): 4 Rollin Roll Left to Right (QC): 6 Chair/Xzr-tz-Bbrou Xfer(QC): 4 Car Transfer (QC): 4 Gait (FIM): 2 Distance: 100' Walk 10 feet (QC): 4 Walk 10ft-Uneven Surface(QC): 4 Walk 50ft with 2 Turns (QC): 4 Gait Level of Assist: 5 Gait Assistive Device: FWW Stairs (FIM): 2 # of Steps: 4 1 Step (curb) (QC): 4 4 Steps (QC): 4 Stairs Level Of Assist: 4 PT Plan Problem List Problem List: Activity Tolerance, Functional Strength, Gait Treatment/Plan Treatment Plan: Continue Plan of Care Treatment Plan: Bed Mobility, Education, Functional Activity Jose David, Functional Strength, Group Therapy, Gait, Safety, Therapeutic Exercise, Transfers Treatment Duration: September 19, 2017 Frequency: At least 5 of 7 days/Wk (IRF) Estimated Hrs Per Day: 1.5 hours per day Patient and/or Family Agrees t: Yes Safety Risks/Education Patient Education: Gait Training, Transfer Techniques, Correct Positioning, Safety Issues Teaching Recipient: Patient Teaching Methods: Discussion Response to Teaching: Verbalize Understanding Time/GCodes Time In: 1100 Time Out: 1200 Total Billed Treatment 1,GT (15m), FA x2 (25m) & Ex (20m) G Codes Necessary: No ZAY COATESAH TELLER COORDINATOR September 04, 2017 12:07
--- NOTE | 2017-09-04 13:50 | PM & R (SOAP) Progress Note ---
Subjective This was a face to face visit with the patient. Date Seen by Provider: September 04, 2017 Time Seen by Provider: 11:30 Subjective/Events-last exam Patient was seen in her room this AM Weaned from Patient Modified Independent for Grooming and oral hygiene.Accuchecks noted Objective Physician Exam Last Set of Vital Signs Vital Signs Date Time Temp Pulse Resp B/P (MAP) Pulse Ox O2 Delivery O2 Flow Rate FiO2 09/04/17 09:26 74 94 Room Air 09/04/17 05:09 98.9 20 163/82 (109) 1.00 Capillary Refill : Less Than 3 Seconds I&O Intake and Output 09/04/17 00:00 Intake Total 1650 ml Output Total 9 ml Balance 1641 ml Intake Oral 1650 ml Output Urine Total 9 ml # Bowel Movements 1 General: Alert, Oriented X3, Cooperative, No Acute Distress HEENT: Atraumatic, PERRLA, EOMI, Mucous Memb Moist/[place] Neck: Supple, No JVD Lungs: Clear to Auscultation Heart: Regular Rate Abdomen: Normal Bowel Sounds, Soft, No Tenderness Extremities: No Edema Neuro: Other (Sensation intact Cognition intact Strength good except for left LLE due to recent frx and repair) Results Lab Data Laboratory Tests 09/01/17 16:14: Glucometer 96 09/01/17 20:46: Glucometer 128H 09/02/17 06:32: Glucometer 95 09/02/17 10:36: Glucometer 90 09/02/17 16:49: Glucometer 95 09/02/17 20:25: Glucometer 155H 09/03/17 06:22: Glucometer 100 09/03/17 10:20: Glucometer 100 09/03/17 15:54: Glucometer 142H 09/03/17 21:13: Glucometer 198H 09/04/17 05:10: Glucometer 89 09/04/17 11:09: Glucometer 84 Assessment/Plan Assessment and Plan Left Fem neck fracture s/p repair TTWB LLE DM controlled HTN controlled Postop resp insufficiency weaned from Postop constipation Discussed with RN meds adjusted Plan Continue PT/OT and as per above See orders Team Conference tomorrow (1) Closed subcapital fracture of neck of left femur Status: Acute Co-Morbidities that are continuing to impact the rehab process: (include details ) LIBERTAD LIPSCOMB MD September 04, 2017 13:50
--- NOTE | 2017-09-04 15:32 | Diagnostic Imaging Report ---
INDICATION: Left knee pain. TIME OF EXAMINATION: 02:07 p.m. FINDINGS: Two views of left knee demonstrate postop changes of total knee arthroplasty. The prosthetic elements appear to be in good position. No fracture loosening is seen. No acute bony abnormalities identified. There is no effusion. IMPRESSION: No acute feature is detected. Dictated by: Dictated on workstation # [id number]
--- NOTE | 2017-09-04 16:15 | Physical Therapy Daily Note ---
PT Daily Note-Current Subjective Pt laying Supine in bed upon arrival. Pt agrees to PT. Pain Numeric Pain Scale: 8 Location: Left Location Body Site: Knee Pain Description: A[place] Comment: Pt reports pain in L hip & knee & gas bubble in stomach. Mental Status Patient Orientation: Person, Place, Time, Situation Transfers Functional [place] Measure 0=Not Assessed/NA 4=Minimal Assistance 1=Total Assistance 5=Supervision or Setup 2=Maximal Assistance 6=Modified [place] 3=Moderate Assistance 7=Complete IndependenceIRFPAI Quality Coding Scale 6 Independent with activity with or without an assistive device 5 Patient requires set up or clean up by helper. Patient completes activity by themselves 4 Supervision or touching assist (CGA). [place] provide cues , steadying assist 3 The helper provides less than half the effort to complete the activity 2 The helper provides more than half the effort to complete the activity 1 Dependent. The helper does all the effort to complete an activity 7 Patient refused to complete or attempt activity 9 The patient did not perform the activity before the current illness or injury 88 Not attempted due to Medical conditions or safety concerns Scootin Rollin Roll Left to Right (QC): 6 Supine to/from Sit: 4 Sit to/from Stand: 6 Sit to Lying (QC): 4 Sit to Stand (QC): 6 Weight Bearing Right Lower Extremity: Right Full Weight Bearing Left Lower Extremity: Left Touch Toe Bearing (pt. maintains this well consistently) Gait Training Does the Patient Walk?: Yes Distance (FIM): 3=150 ft Distance: 150' Walk 10 feet (QC): 5 Walk 50 ft with 2 Turns(QC): 5 Walk 150 ft (QC): 5 Gait Level of Assist: 5 Gait Assistive Device: FWW Pt does a good job of maintaining WB status. Exercises Seated Therapy Exercises: Ankle pumps, Long arc quads, Kicking activity Treatments Pt transfers from Supine to EOB at Mod I then EOB at Mod I. Pt uses restroom then ambulates in hallway to Therapy Gym. Pt completes Seated Ex before walking back to room. Pt transfers back to Supine in bed at Min A for lifting LLE into bed. Pt has all needs met at end of tx, including call light, ice pack and demonstration of how to massage bursa pain out of L knee. Assessment Current Status: Good Progress Pt reports less pain around knee after massage and ice pack given. PT Short Term Goals Short Term Goals Time Frame: September 05, 2017 Gait (FIM): 1 Gait Distance Comment: 40' Gait Level of Assist: 4 Gait Assistive Device: FWW Wheelchair Distance: 50' PT [place] Solution Architect Goals Retirement Goals PT [place] Solution Architect Goals Time Frame: September 19, 2017 Transfers (B,C,W/C) (FIM): 5 Sit to Lying (QC): 6 Lying-Sitting on Side/Bed(QC): 6 Sit to Stand (QC): 4 Rollin Roll Left to Right (QC): 6 Chair/Yat-lf-Jlwpr Xfer(QC): 4 Car Transfer (QC): 4 Gait (FIM): 2 Distance: 100' Walk 10 feet (QC): 4 Walk 10ft-Uneven Surface(QC): 4 Walk 50ft with 2 Turns (QC): 4 Gait Level of Assist: 5 Gait Assistive Device: FWW Stairs (FIM): 2 # of Steps: 4 1 Step (curb) (QC): 4 4 Steps (QC): 4 Stairs Level Of Assist: 4 PT Plan Problem List Problem List: Activity Tolerance, Functional Strength Treatment/Plan Treatment Plan: Continue Plan of Care Treatment Plan: Bed Mobility, Education, Functional Activity Jose David, Functional Strength, Group Therapy, Gait, Safety, Therapeutic Exercise, Transfers Treatment Duration: September 19, 2017 Frequency: At least 5 of 7 days/Wk (IRF) Estimated Hrs Per Day: 1.5 hours per day Patient and/or Family Agrees t: Yes Safety Risks/Education Patient Education: Gait Training, Transfer Techniques, Reviewed Use of Ice, Correct Positioning, Safety Issues Teaching Recipient: Patient Teaching Methods: Demonstration, Discussion Response to Teaching: Verbalize Understanding Time/GCodes Time In: 1430 Time Out: 1500 Total Billed Treatment 1, FA (15m) & GT (15m) G Codes Necessary: MASON Gonsalez POCKET BUILDER September 04, 2017 16:15
[2017-09-04 17:40] VITALS: BP 158/72
[2017-09-04] MEDS: MILK OF MAGNESIA 400 MG/5 ML 30 ML UDC PO NR (18:09)
[2017-09-04] MEDS: HYDROcodone/APAP 5 MG/325 MG (LORTAB) TAB PO PRN ×2 (18:09→22:37)
[2017-09-04] MEDS: TIMOLOL MALEATE 0.5% 5 ML (TIMOPTIC) BTL OU SCH (21:22)
[2017-09-04] MEDS: OMEGA 3 (FISH OIL) 1000 MG CAP PO SCH (21:23)
[2017-09-04] MEDS: ASPIRIN E.C. 81 MG (ECOTRIN) TAB PO SCH (21:24)
[2017-09-04] MEDS: ALLOPURINOL 300 MG (ZYLOPRIM) TAB PO SCH (21:28)
[2017-09-05] MEDS: HYDROcodone/APAP 5 MG/325 MG (LORTAB) TAB PO PRN ×3 (04:27→22:30)
[2017-09-05 05:39] VITALS: BP 158/82
[2017-09-05] MEDS: inSUlin ASPART (NovoLOG) 1 UNIT/0.01 ML (CHARGE PER UNIT) SC SCH ×4 (06:00→21:00)
[2017-09-05] MEDS: MULTIVIT W/MINERALS TAB (THERAGRAN M) PO SCH (06:49)
[2017-09-05] MEDS: glyBURIDE 2.5 MG (MICRONASE) TAB PO SCH (06:49)
[2017-09-05] MEDS: ENOXAPARIN 30 MG/0.3 ML (LOVENOX) SYR SC SCH ×2 (08:08→20:37)
[2017-09-05] MEDS: GEMFIBROZIL 600 MG (LOPID) TAB PO SCH (08:08)
[2017-09-05] MEDS: SENNOSIDES 8.6 MG (SENOKOT) TAB PO SCH ×2 (08:08→08:11)
[2017-09-05] MEDS: DOCUSATE SODIUM 100 MG (COLACE) CAP PO SCH ×2 (08:09→08:11)
[2017-09-05] MEDS: LOSARTAN 25 MG (COZAAR) TAB PO SCH (08:09)
[2017-09-05] MEDS: LACTULOSE SYRUP 10GM/15ML (ENULOSE) 30ML UDC PO SCH (08:09)
[2017-09-05] MEDS: MILK OF MAGNESIA 400 MG/5 ML 30 ML UDC PO NR (08:11)
--- NOTE | 2017-09-05 09:08 | PM & R (SOAP) Progress Note ---
Subjective This was a face to face visit with the patient. Date Seen by Provider: September 05, 2017 Time Seen by Provider: 07:50 Subjective/Events-last exam Patient was seen in her room this AM Back on 02 at night asks about getting a 4 wheeled walker with a seat -will pass on to SW.Patient min assist for transfers Objective Physician Exam Last Set of Vital Signs Vital Signs Date Time Temp Pulse Resp B/P (MAP) Pulse Ox O2 Delivery O2 Flow Rate FiO2 09/05/17 05:39 98.3 72 20 158/82 (107) 92 Nasal Cannula 1.00 Capillary Refill : Less Than 3 Seconds I&O Intake and Output 09/05/17 00:00 Intake Total 1140 ml Output Total 9 ml Balance 1131 ml Intake Oral 1140 ml Output Urine Total 9 ml # Bowel Movements 2 General: Alert, Oriented X3, Cooperative, No Acute Distress HEENT: Atraumatic, PERRLA, EOMI, Mucous Memb Moist/[place] Neck: Supple, No JVD Lungs: Clear to Auscultation Heart: Regular Rate Abdomen: Normal Bowel Sounds, Soft, No Tenderness Extremities: No Edema Neuro: Other (Sensation intact Cognition intact Strength good except for left LLE due to recent frx and repair) Results Lab Data Laboratory Tests 09/02/17 10:36: Glucometer 90 09/02/17 16:49: Glucometer 95 09/02/17 20:25: Glucometer 155H 09/03/17 06:22: Glucometer 100 09/03/17 10:20: Glucometer 100 09/03/17 15:54: Glucometer 142H 09/03/17 21:13: Glucometer 198H 09/04/17 05:10: Glucometer 89 09/04/17 11:09: Glucometer 84 09/04/17 16:22: Glucometer 109 09/04/17 20:21: Glucometer 119H 09/05/17 06:49: Glucometer 117H Assessment/Plan Assessment and Plan Left fem neck fracture s/p repair TTWB LLE DM controlled HTN controlled Postop resp insufficiency Post op constipation meds adjusted Plan Continue PT/OT Team Conference later today See report for full functional update and POC and ELOS Patient may need formal oximetry testing prior to discharge to see if she qualifies for home 02 (1) Closed subcapital fracture of neck of left femur Status: Acute Co-Morbidities that are continuing to impact the rehab process: (include details ) LIBERTAD LIPSCOMB MD September 05, 2017 09:08
--- NOTE | 2017-09-05 10:16 | Occupational Ther Daily Note ---
OT Current Status-Daily Note Subjective Pt alert, lying in bed. Pt c/o issues in morning and night that she will be talking to someone and fall asleep then not remember what she said. No dizziness reported. Reported to nrsg then took BP and pulse, 144/73;66. Pt agreed to therapy. Mental Status/Objective Patient Orientation: Person, Place, Time, Situation Functional [place] Measure 0=Not Assessed/NA 4=Minimal Assistance 1=Total Assistance 5=Supervision or Setup 2=Maximal Assistance 6=Modified [place] 3=Moderate Assistance 7=Complete [place] ADL-Treatment Functional [place] Measure 0=Not Assessed/NA 4=Minimal Assistance 1=Total Assistance 5=Supervision or Setup 2=Maximal Assistance 6=Modified [place] 3=Moderate Assistance 7=Complete IndependenceIRFPAI Quality Coding Scale 6 Independent with activity with or without an assistive device 5 Patient requires set up or clean up by helper. Patient completes activity by themselves 4 Supervision or touching assist (CGA). [place] provide cues , steadying assist 3 The helper provides less than half the effort to complete the activity 2 The helper provides more than half the effort to complete the activity 1 Dependent. The helper does all the effort to complete an activity 7 Patient refused to complete or attempt activity 9 The patient did not perform the activity before the current illness or injury 88 Not attempted due to Medical conditions or safety concerns Eating (FIM): 6 (Pt able to open containers/packages and use regular utensils for feeding and cutting food.) Eating (QC): 6 Grooming (FIM): 6 (Standing at sink with FWW, pt is able to complete own grooming.) Oral Hygiene (QC): 6 Bathing (FIM): 6 (Using bench, grabbar, long handle sponge and hand held shower pt is able to complete by self.) Bathing Location: L Arm, R Arm, L Upper Leg, R Upper Leg, L Lower Leg ( including foot), R Lower Leg (including foot), Chest, Abdomen, Buttocks, Perineal Area Shower/Bathe Self (QC): 6 Upper Body (FIM): 6 (Pt retrieved clothing with FWW, able to don/doff by self.) Upper Body Dressing (QC): 6 Lower Body Dressing (FIM): 6 (Retrieving clothing with FWW and is able to don/ doff lower body clothing with AE.) Lower Body Dressing (QC): 6 On/Off Footwear (QC): 6 Toileting (FIM): 6 (Using FWW and grabbar, pt is able to complete toileting by self.) Toileting Hygiene (QC): 6 Transfers (B, C, W/C) (FIM): 6 (Using FWW, pt is able to complete by self.) Toilet/Commode Transfer (FIM): 6 (Using FWW and grabbar, pt is able to complete by self.) Toilet Transfer (QC): 6 Tub Transfer(FIM): 6 (Using tub transfer bench, grabbar and FWW pt is able to complete by self.) Shower Transfer(FIM): 6 (Using shower bench, grabbar and FWW pt is able to complete by self.) Pt was able to stand at counter with FWW and open packages, reach and sort different food items to prepare items for husbands snack. Pt was able to lift LE's into tub while sitting on tub transfer bench. Pt took recovery breaks between activities throughout session. After therapy, PT took over care of pt in therapy gym. All needs met. Education OT Patient Education: Transfer techniques, Use of adapted equipment Teaching Recipient: Patient Teaching Methods: Demonstration, Discussion Response to Teaching: Verbalize Understanding, Return Demonstration OT Short Term Goals Short Term Goals Time Frame: September 05, 2017 Upper Body Dressing(FIM): 5 Lower Body Dressing(FIM): 4 Toileting(FIM): 5 Toilet/Commode Transfer(FIM): 5 Additional Short Term Goals: 1-Demonstrate ADL Tasks, 2-Verbalize Understanding , 3-ImproveStrength/Jose David 1=Demonstrate adherence to instructed precautions during ADL tasks. 2=Patient will verbalize/demonstrate understanding of assistive devices/ modifications for ADL. 3=Patient will improve strength/tolerance for activity to enable patient to perform ADL's. OT [facility] Goals [place] Goals Time Frame: September 19, 2017 Eating (FIM): 6 Eating (QC): 6 Groomin Oral Hygiene (QC): 6 Bathing(FIM): 5 Shower/Bathe Self (QC): 5 Upper Body Dressing(FIM): 6 Upper Body Dressing (QC): 6 Lower Body Dressing(FIM): 5 Lower Body Dressing (QC): 5 On/Off Footwear (QC): 6 Toileting(FIM): 6 Toileting Hygiene (QC): 6 Toilet/Commode Transfer(FIM): 6 Toilet/Commode Transfer (QC): 6 Shower Transfer(FIM): 5 Additional Goals: 1-Demonstrate ADL Tasks, 2-Verbalize Understanding, 3- ImproveStrength/Jose David 1=Demonstrate adherence to instructed precautions during ADL tasks. 2=Patient will verbalize/demonstrate understanding of assistive devices/ modifications for ADL. 3=Patient will improve strength/tolerance for activity to enable patient to perform ADL's. OT Education/Plan Problem List/Assessment Pt admitted to ARU following acute hospitalization for left hip fracture. Pt is TTWB left LE. Pt demonstrates decreased ADL functioning, mobility, strength, and activity tolerance. Pt to benefit from skilled OT intervention for ADL training, transfers, strengthening, adaptive equipment training, and home safety education to increase level of independence and allow safe discharge. Discharge Recommendations Plan/Recommendations: Continue POC Treatment Plan/Plan of Care Patient would benefit from OT for education, treatment and training to promote independence in ADL's, mobility, safety and/or upper extremity function for ADL' s. Plan of Care: ADL Retraining, Functional Mobility, Group Exercise/Act as Ind, UE Funct Exercise/Act Treatment Duration: September 19, 2017 Frequency: At least 5 of 7 days/Wk (IRF) Estimated Hrs Per Day: 1.5 hours per day Agreement: Yes Rehab Potential: Good Time/GCodes Start Time: 08:30 Stop Time: 10:00 Total Time Billed (hr/min): 90 Billed Treatment Time 1 visit-ADL 4 (65 min) FA 2 (25 min) CRISTOBAL CANALES September 05, 2017 10:16
--- NOTE | 2017-09-05 12:21 | Physical Therapy Daily Note ---
PT Daily Note-Current Subjective Pt sitting in chair in Therapy Gym with OT upon arrival. Pt agrees to PT. Pt reports feeling stronger and hopes to be going home soon. Pain Numeric Pain Scale: 5-Moderate Pain Location: Left Location Body Site: Thigh Pain Description: Ache Mental Status Patient Orientation: Person, Place, Time, Situation Transfers Functional [place] Measure 0=Not Assessed/NA 4=Minimal Assistance 1=Total Assistance 5=Supervision or Setup 2=Maximal Assistance 6=Modified [place] 3=Moderate Assistance 7=Complete IndependenceIRFPAI Quality Coding Scale 6 Independent with activity with or without an assistive device 5 Patient requires set up or clean up by helper. Patient completes activity by themselves 4 Supervision or touching assist (CGA). [place] provide cues , steadying assist 3 The helper provides less than half the effort to complete the activity 2 The helper provides more than half the effort to complete the activity 1 Dependent. The helper does all the effort to complete an activity 7 Patient refused to complete or attempt activity 9 The patient did not perform the activity before the current illness or injury 88 Not attempted due to Medical conditions or safety concerns Scootin Supine to/from Sit: 5 Sit to/from Stand: 5 Sit to Stand (QC): 5 Weight Bearing Right Lower Extremity: Right Full Weight Bearing Left Lower Extremity: Left Touch Toe Bearing (pt. maintains this well consistently) Gait Training Does the Patient Walk?: Yes Distance (FIM): 3=150 ft Distance: 150' Walk 10 feet (QC): 5 Walk 50 ft with 2 Turns(QC): 5 Walk 150 ft (QC): 5 Gait Level of Assist: 5 Gait Persons Needed: 1 Gait Assistive Device: FWW Pt walks using TTWB and slight antalgic gait. Wheelchair Training Does the Pt Use a Wheelchair?: No Stair Training Stair Training: Handrails/: 2 handrails #of Steps: 4 1 Step (curb) (QC): 4 4 Steps (QC): 4 Stairs: Pattern: Step to Level of Assist: 4 Exercises Seated Therapy Exercises: Ankle pumps, Long arc quads, Hip flexion, Kicking activity, Hip abd/add Seated Reps: 20 NuStep Minutes: 10 NuStep Workload: 1 Treatments Pt transfers from Supine to EOB to standing using FWW at [facility]. Pt ambulates in hallway using FWW at [facility]. Pt uses NuStep for 10m at [facility] 1 for ROM only. Pt completes Seated Ex. Pt attempts single pink stair using FWW to try stairs since pt has 5 stairs to get up to bed in split level home. Pt then completes 1 set of 4 steps on staircase using 2 handrails. Pt returns to room to rest in recliner at end of tx with all needs met, including call light in hand. Assessment Current Status: Good Progress Pt tolerating more activity and no increased pain. Pt is motivated to discharge and get back into her home routine. PT Short Term Goals Short Term Goals Time Frame: September 05, 2017 Gait (FIM): 1 Gait Distance Comment: 40' Gait Level of Assist: 4 Gait Assistive Device: FWW Wheelchair Distance: 50' PT Traveling Construction Superintendent Goals Traveling Construction Superintendent Goals PT Traveling Construction Superintendent Goals Time Frame: September 19, 2017 Transfers (B,C,W/C) (FIM): 5 Sit to Lying (QC): 6 Lying-Sitting on Side/Bed(QC): 6 Sit to Stand (QC): 4 Rollin Roll Left to Right (QC): 6 Chair/Tvj-pw-Esxyw Xfer(QC): 4 Car Transfer (QC): 4 Gait (FIM): 2 Distance: 100' Walk 10 feet (QC): 4 Walk 10ft-Uneven Surface(QC): 4 Walk 50ft with 2 Turns (QC): 4 Gait Level of Assist: 5 Gait Assistive Device: FWW Stairs (FIM): 2 # of Steps: 4 1 Step (curb) (QC): 4 4 Steps (QC): 4 Stairs Level Of Assist: 4 PT Plan Problem List Problem List: Activity Tolerance, Functional Strength, Gait Treatment/Plan Treatment Plan: Continue Plan of Care Treatment Plan: Bed Mobility, Education, Functional Activity Jose David, Functional Strength, Group Therapy, Gait, Safety, Therapeutic Exercise, Transfers Treatment Duration: September 19, 2017 Frequency: At least 5 of 7 days/Wk (IRF) Estimated Hrs Per Day: 1.5 hours per day Patient and/or Family Agrees t: Yes Safety Risks/Education Patient Education: Gait Training, Transfer Techniques, Steps, Correct Positioning, Safety Issues Teaching Recipient: Patient Teaching Methods: Discussion Response to Teaching: Verbalize Understanding Time/GCodes Time In: 1000 Time Out: 1100 Total Billed Treatment Time: 60 Total Billed Treatment 1, GT (15m), EX x2 (30m) & FA (15m) G Codes Necessary: MASON Gonsalez RN AMBULATORY September 05, 2017 12:21
[2017-09-05] MEDS: MILK OF MAGNESIA 400 MG/5 ML 30 ML UDC PO PRN (14:41)
--- NOTE | 2017-09-05 15:58 | D/C HH Face to Face Order ---
D/C Face to Face Orders Instructions for Patient Patient Instructions/FollowUp: Dr. [place] Physician to follow Patient: Dr. [place] Discharge Diet for Home: Regular Diet Patient Data-Allergies,Ht & Wt Patient Allergies: Coded Allergies: No Known Drug Allergies (Unverified , 08/27/17) Height (Feet): 5 Height (Inches): 4.00 Weight (Pounds): 210 Weight (Ounces): 12.8 Home Health Need/Face to Face Date of Face to Face: September 07, 2017 Clinical Findings: Generalized weakness and fatigue, Muscle weakness, Non or partial weight bearing, Unsteady gait I have seen Pt tlut-[id number]: Yes Discharged To: Home Diagnosis/Conditions: L hip fracture Patient is Homebound due to: Erin fall risk due to instabilty, Non-weight bearing (TTWB) Homebound Status Due to the above stated illness, injury or surgical procedure (medical condition or diagnosis) and associated clinical findings, the patient is homebound because of his/her inability to leave home except with aid of a supportive device and/or person AND leaving the home requires a considerable and taxing effort or is medically contraindicated. Pt req the following assistanc: Walker Home Health Nursing Orders Home Health Services Order: Water Sponger-Evaluate & Treat, Physical Therapy-Evaluate & Treat Therapy Orders Therapy Orders: OT (must have SN or PT order), Physical Therapy Therapy Specific Orders: Eval assistive deivces, Teach enviro modifications/ safety, Gait training, Increase strength/endurance Certify Stmt I certify that this patient is under my care and that I, a nurse practitioner or a physician; a sales and marketing assistant working with me, had a face to face encounter that - meets the physician face to face encounter requirements with this patient as dated. I personally scribed for LIBERTAD LIPSCOMB MD ([email or web address]) on 09/05/17 at 15:57. Electronically submitted by Nasrin Toribio ([id number]). I personally scribed for LIBERTAD LIPSCOMB MD ([email or web address]) on 09/05/17 at 15:58. Electronically submitted by Nasrin Toribio ([id number]). LIBERTAD LIPSCOMB MD September 05, 2017 15:57
--- NOTE | 2017-09-05 16:33 | Physical Therapy Daily Note ---
PT Daily Note-Current Subjective Pt sitting at EOB after just using restroom upon arrival. Pt agrees to PT. Pt is excited to discharge on Sunday. Pain Numeric Pain Scale: 8 Location: Lower Location Body Site: Back Pain Description: Ache Mental Status Patient Orientation: Person, Place, Time, Situation Transfers Functional [place] Measure 0=Not Assessed/NA 4=Minimal Assistance 1=Total Assistance 5=Supervision or Setup 2=Maximal Assistance 6=Modified [place] 3=Moderate Assistance 7=Complete IndependenceIRFPAI Quality Coding Scale 6 Independent with activity with or without an assistive device 5 Patient requires set up or clean up by helper. Patient completes activity by themselves 4 Supervision or touching assist (CGA). [place] provide cues , steadying assist 3 The helper provides less than half the effort to complete the activity 2 The helper provides more than half the effort to complete the activity 1 Dependent. The helper does all the effort to complete an activity 7 Patient refused to complete or attempt activity 9 The patient did not perform the activity before the current illness or injury 88 Not attempted due to Medical conditions or safety concerns Scootin Supine to/from Sit: 4 Sit to/from Stand: 6 Sit to Lying (QC): 4 Sit to Stand (QC): 6 Weight Bearing Right Lower Extremity: Right Full Weight Bearing Left Lower Extremity: Left Touch Toe Bearing (pt. maintains this well consistently) Gait Training Does the Patient Walk?: Yes Distance (FIM): 3=150 ft Distance: 150' Walk 10 feet (QC): 5 Walk 50 ft with 2 Turns(QC): 5 Walk 150 ft (QC): 5 Gait Level of Assist: 5 Gait Persons Needed: 1 Gait Assistive Device: FWW Treatments Pt transfers from bed to standing using FWW at Mod I. Pt ambulates in hallway and Therapy Commons using FWW at [facility]. Pt takes short rest and reports pain, asking for pain pill and Milk of Mag., Nurse notified. Pt returns to room to take medicine at EOB. Pt wants to discuss what the next few days of PT will be like since discharge is Sunday. MANAGER TRUCK and pt & sp discuss this question as well as a few additional items/equipment pt may need at home. Pt resting Supine in bed at end of tx with all needs met, including call light in hand. Assessment Current Status: Good Progress Pt is excited and motivated for discharge on Sunday. PT Short Term Goals Short Term Goals Time Frame: September 05, 2017 Gait (FIM): 1 Gait Distance Comment: 40' Gait Level of Assist: 4 Gait Assistive Device: FWW Wheelchair Distance: 50' PT Home Appraiser Goals Home Appraiser Goals PT Home Appraiser Goals Time Frame: September 19, 2017 Transfers (B,C,W/C) (FIM): 5 Sit to Lying (QC): 6 Lying-Sitting on Side/Bed(QC): 6 Sit to Stand (QC): 4 Rollin Roll Left to Right (QC): 6 Chair/Bmz-zc-Bkzoj Xfer(QC): 4 Car Transfer (QC): 4 Gait (FIM): 2 Distance: 100' Walk 10 feet (QC): 4 Walk 10ft-Uneven Surface(QC): 4 Walk 50ft with 2 Turns (QC): 4 Gait Level of Assist: 5 Gait Assistive Device: FWW Stairs (FIM): 2 # of Steps: 4 1 Step (curb) (QC): 4 4 Steps (QC): 4 Stairs Level Of Assist: 4 PT Plan Problem List Problem List: Activity Tolerance, Functional Strength, Gait Treatment/Plan Treatment Plan: Continue Plan of Care Treatment Plan: Bed Mobility, Education, Functional Activity Jose David, Functional Strength, Group Therapy, Gait, Safety, Therapeutic Exercise, Transfers Treatment Duration: September 19, 2017 Frequency: At least 5 of 7 days/Wk (IRF) Estimated Hrs Per Day: 1.5 hours per day Patient and/or Family Agrees t: Yes Safety Risks/Education Patient Education: Gait Training, Transfer Techniques, Correct Positioning, Safety Issues Teaching Recipient: Patient Teaching Methods: Discussion Response to Teaching: Verbalize Understanding Time/GCodes Time In: 1420 Time Out: 1450 Total Billed Treatment Time: 30 Total Billed Treatment 1, GT (15m) & FA (15m) G Codes Necessary: MASON Gonsalez MANAGER TRUCK September 05, 2017 16:33
[2017-09-05 18:00] VITALS: BP 134/71
[2017-09-05] MEDS: TIMOLOL MALEATE 0.5% 5 ML (TIMOPTIC) BTL OU SCH (21:27)
[2017-09-05] MEDS: OMEGA 3 (FISH OIL) 1000 MG CAP PO SCH (21:28)
[2017-09-05] MEDS: ASPIRIN E.C. 81 MG (ECOTRIN) TAB PO SCH (21:28)
[2017-09-05] MEDS: ALLOPURINOL 300 MG (ZYLOPRIM) TAB PO SCH (21:28)
[2017-09-06] MEDS: HYDROcodone/APAP 5 MG/325 MG (LORTAB) TAB PO PRN ×3 (05:39→22:52)
[2017-09-06 06:00] VITALS: BP 130/73
[2017-09-06] MEDS: inSUlin ASPART (NovoLOG) 1 UNIT/0.01 ML (CHARGE PER UNIT) SC SCH ×4 (06:00→20:49)
[2017-09-06] MEDS: glyBURIDE 2.5 MG (MICRONASE) TAB PO SCH (07:03)
[2017-09-06] MEDS: MULTIVIT W/MINERALS TAB (THERAGRAN M) PO SCH (07:03)
[2017-09-06] MEDS: LOSARTAN 25 MG (COZAAR) TAB PO SCH (07:48)
[2017-09-06] MEDS: ENOXAPARIN 30 MG/0.3 ML (LOVENOX) SYR SC SCH ×2 (07:48→20:19)
[2017-09-06] MEDS: GEMFIBROZIL 600 MG (LOPID) TAB PO SCH (07:48)
--- NOTE | 2017-09-06 08:10 | PM & R (SOAP) Progress Note ---
Subjective This was a face to face visit with the patient. Date Seen by Provider: September 06, 2017 Time Seen by Provider: 07:45 Subjective/Events-last exam Patient was seen in her room this AM Discussed case with RN Patient still requires 02 at night so as to not desat Will ask Resp therapy to document need for nocturnal 02 see orders Patient CGA for transfers Discharge set for tomorrow to home with family Review of Systems Pulmonary: Dyspnea Objective Physician Exam Last Set of Vital Signs Vital Signs Date Time Temp Pulse Resp B/P (MAP) Pulse Ox O2 Delivery O2 Flow Rate FiO2 09/06/17 06:00 97.6 70 18 130/73 (92) 91 Nasal Cannula 1.00 Capillary Refill : Less Than 3 Seconds I&O Intake and Output 09/06/17 00:00 Intake Total 1150 ml Output Total 1 ml Balance 1149 ml Intake Oral 1150 ml Stool Total 1 ml # Voids 6 # Bowel Movements 2 General: Alert, Oriented X3, Cooperative, No Acute Distress HEENT: Atraumatic, PERRLA, EOMI, Mucous Memb Moist/[place] Neck: Supple, No JVD Lungs: Clear to Auscultation Heart: Regular Rate Abdomen: Normal Bowel Sounds, Soft, No Tenderness Extremities: No Edema Neuro: Other (Sensation intact Cognition intact Strength good except for left LLE due to recent frx and repair) Results Lab Data Laboratory Tests 09/03/17 10:20: Glucometer 100 09/03/17 15:54: Glucometer 142H 09/03/17 21:13: Glucometer 198H 09/04/17 05:10: Glucometer 89 09/04/17 11:09: Glucometer 84 09/04/17 16:22: Glucometer 109 09/04/17 20:21: Glucometer 119H 09/05/17 06:49: Glucometer 117H 09/05/17 11:18: Glucometer 80 09/05/17 16:31: Glucometer 111H 09/05/17 20:39: Glucometer 128H 09/06/17 05:25: Glucometer 121H Assessment/Plan Assessment and Plan Left fem neck fracture s/p repair TTWB LLE DM controlled HTN controlled Resp insuffiency on 02 at night Post op constipation treated Plan Continue PT/OT RT to test for home 02 qualifications at HS Discharge set for tomorrow See orders. (1) Closed subcapital fracture of neck of left femur Status: Acute Co-Morbidities that are continuing to impact the rehab process: (include details ) LIBERTAD LIPSCOMB MD September 06, 2017 08:10
[2017-09-06] MEDS: MILK OF MAGNESIA 400 MG/5 ML 30 ML UDC PO PRN (10:57)
--- NOTE | 2017-09-06 11:02 | Occupational Ther Daily Note ---
OT Current Status-Daily Note Subjective Pt alert, sitting in recliner. Pt agrees to therapy. No c/o pain. Mental Status/Objective Patient Orientation: Person, Place, Time, Situation Functional [place] Measure 0=Not Assessed/NA 4=Minimal Assistance 1=Total Assistance 5=Supervision or Setup 2=Maximal Assistance 6=Modified [place] 3=Moderate Assistance 7=Complete [place] ADL-Treatment Functional [place] Measure 0=Not Assessed/NA 4=Minimal Assistance 1=Total Assistance 5=Supervision or Setup 2=Maximal Assistance 6=Modified [place] 3=Moderate Assistance 7=Complete IndependenceIRFPAI Quality Coding Scale 6 Independent with activity with or without an assistive device 5 Patient requires set up or clean up by helper. Patient completes activity by themselves 4 Supervision or touching assist (CGA). [place] provide cues , steadying assist 3 The helper provides less than half the effort to complete the activity 2 The helper provides more than half the effort to complete the activity 1 Dependent. The helper does all the effort to complete an activity 7 Patient refused to complete or attempt activity 9 The patient did not perform the activity before the current illness or injury 88 Not attempted due to Medical conditions or safety concerns Eating (FIM): 6 (Pt able to open containers/packages by self. Uses regular utensils to feed self and cut food.) Eating (QC): 6 Grooming (FIM): 6 (Using FWW while standing at sink, pt is able to complete grooming by self.) Oral Hygiene (QC): 6 Bathing (FIM): 6 (Using grabbar, shower bench, long handle sponge and hand held shower pt is able to complete bathing/drying by self.) Bathing Location: L Arm, R Arm, L Upper Leg, R Upper Leg, L Lower Leg ( including foot), R Lower Leg (including foot), Chest, Abdomen, Buttocks, Perineal Area Shower/Bathe Self (QC): 6 Upper Body (FIM): 6 (Pt retrieves clothing via FWW then is able to complete own dressing.) Upper Body Dressing (QC): 6 Lower Body Dressing (FIM): 6 (Pt retrieves clothing via FWW then is able to complete own dressing using AE.) Lower Body Dressing (QC): 6 On/Off Footwear (QC): 6 (Using AE, pt is able to complete.) Toileting (FIM): 6 (Using FWW and grabbar, pt is able to complete.) Toileting Hygiene (QC): 6 Transfers (B, C, W/C) (FIM): 6 (Using FWW, pt is able to complete.) Toilet/Commode Transfer (FIM): 6 (Using FWW and grabbars, pt is able to complete.) Toilet Transfer (QC): 6 Shower Transfer(FIM): 6 (Using FWW, grabbar and shower bench pt is able to complete.) Pt worked on maneuvering around kitchen safely, completed without any LOB. After therapy, pt sitting in room recliner with call light/phone in reach. All needs met in room. Education OT Patient Education: Transfer techniques, Use of adapted equipment Teaching Recipient: Patient Teaching Methods: Demonstration, Discussion Response to Teaching: Verbalize Understanding, Return Demonstration OT Short Term Goals Short Term Goals Time Frame: September 05, 2017 Upper Body Dressing(FIM): 5 Lower Body Dressing(FIM): 4 Toileting(FIM): 5 Toilet/Commode Transfer(FIM): 5 Additional Short Term Goals: 1-Demonstrate ADL Tasks, 2-Verbalize Understanding , 3-ImproveStrength/Jose David 1=Demonstrate adherence to instructed precautions during ADL tasks. 2=Patient will verbalize/demonstrate understanding of assistive devices/ modifications for ADL. 3=Patient will improve strength/tolerance for activity to enable patient to perform ADL's. OT Egg Grader Goals Egg Grader Goals Time Frame: September 19, 2017 Eating (FIM): 6 (met-09/06/2017) Eating (QC): 6 (met-09/06/2017) Groomin (met-09/06/2017) Oral Hygiene (QC): 6 (met-09/06/2017) Bathing(FIM): 5 (met-09/06/2017) Shower/Bathe Self (QC): 5 (met-09/06/2017) Upper Body Dressing(FIM): 6 (met-09/06/2017) Upper Body Dressing (QC): 6 (met-09/06/2017) Lower Body Dressing(FIM): 5 (met-09/06/2017) Lower Body Dressing (QC): 5 (met-09/06/2017) On/Off Footwear (QC): 6 (met-09/06/2017) Toileting(FIM): 6 (met-09/06/2017) Toileting Hygiene (QC): 6 (met-09/06/2017) Toilet/Commode Transfer(FIM): 6 (met-09/06/2017) Toilet/Commode Transfer (QC): 6 (met-09/06/2017) Shower Transfer(FIM): 5 (met-09/06/2017) Additional Goals: 1-Demonstrate ADL Tasks, 2-Verbalize Understanding, 3- ImproveStrength/Jose David 1=Demonstrate adherence to instructed precautions during ADL tasks. 2=Patient will verbalize/demonstrate understanding of assistive devices/ modifications for ADL. 3=Patient will improve strength/tolerance for activity to enable patient to perform ADL's. OT Education/Plan Problem List/Assessment Pt admitted to ARU following acute hospitalization for left hip fracture. Pt is TTWB left LE. Pt demonstrates decreased ADL functioning, mobility, strength, and activity tolerance. Pt to benefit from skilled OT intervention for ADL training, transfers, strengthening, adaptive equipment training, and home safety education to increase level of independence and allow safe discharge. Discharge Recommendations Plan/Recommendations: Continue POC Treatment Plan/Plan of Care Patient would benefit from OT for education, treatment and training to promote independence in ADL's, mobility, safety and/or upper extremity function for ADL' s. Plan of Care: ADL Retraining, Functional Mobility, Group Exercise/Act as Ind, UE Funct Exercise/Act Treatment Duration: September 19, 2017 Frequency: At least 5 of 7 days/Wk (IRF) Estimated Hrs Per Day: 1.5 hours per day Agreement: Yes Rehab Potential: Good Time/GCodes Start Time: 10:00 Stop Time: 11:00 Total Time Billed (hr/min): 60 Billed Treatment Time 1 visit-ADL 3 (50 min) FA 1 (10 min) CRISTOBAL CANALES September 06, 2017 11:02
--- NOTE | 2017-09-06 11:03 | Physical Therapy Daily Note ---
PT Daily Note-Current Subjective Pt laying in bed sewing upon arrival. Pt agrees to PT. Pain Numeric Pain Scale: 8 Location: Left Location Body Site: Knee Pain Description: Ache Mental Status Patient Orientation: Person, Place, Time, Situation Transfers Functional [place] Measure 0=Not Assessed/NA 4=Minimal Assistance 1=Total Assistance 5=Supervision or Setup 2=Maximal Assistance 6=Modified [place] 3=Moderate Assistance 7=Complete IndependenceIRFPAI Quality Coding Scale 6 Independent with activity with or without an assistive device 5 Patient requires set up or clean up by helper. Patient completes activity by themselves 4 Supervision or touching assist (CGA). [place] provide cues , steadying assist 3 The helper provides less than half the effort to complete the activity 2 The helper provides more than half the effort to complete the activity 1 Dependent. The helper does all the effort to complete an activity 7 Patient refused to complete or attempt activity 9 The patient did not perform the activity before the current illness or injury 88 Not attempted due to Medical conditions or safety concerns Transfers (B, C, W/C) (FIM): 5 Scootin Rollin Roll Left to Right (QC): 6 Supine to/from Sit: 6 Sit to/from Stand: 6 Sit to Lying (QC): 5 Sit to Stand (QC): 6 Chair/Mcl-hv-Qpdbz Xfer(QC): 6 Bed to/from Chair: 6 Car Transfer (QC): 5 Weight Bearing Right Lower Extremity: Right Full Weight Bearing Left Lower Extremity: Left Touch Toe Bearing (pt. maintains this well consistently) Gait Training Does the Patient Walk?: Yes Distance (FIM): 3=150 ft Distance: 200' Walk 10 feet (QC): 6 Walk 50 ft with 2 Turns(QC): 6 Walk 150 ft (QC): 6 Walking 10ft/uneven surface-QC: 6 Gait Level of Assist: 6 Gait Persons Needed: 1 Gait Assistive Device: FWW Pt walks with slight antalgic gait due to L knee pain but maintains WB status well. Wheelchair Training Does the Pt Use a Wheelchair?: No Stair Training Stair Training: Handrails/: 2 handrails Stairs (FIM): 2 #of Steps: 4 1 Step (curb) (QC): 5 4 Steps (QC): 5 Stairs: Pattern: Step to Level of Assist: 5 Balance Picking up an Object (QC): 88 Special Test Comments MACHINE WASHER & pt did not feel safe having pt bend over due to balance. Treatments Pt transfers from Supine to EOB using bed rails and will have them at home. Pt then transfers from EOB to Standing using FWW at Mod I. Pt uses restroom before ambulating in hallway using FWW at Mod I. Pt completes bed mobility, 1 set of 4 steps, walking over varying surface for at least 10', & car transfer. Pt returns to room to rest in recliner at end of tx with all needs met, including call light next to pt. Assessment Pt has gotten stronger and is more independent & safer with transfers and mobility. Pt still reports L knee pain that is being managed with pain meds, ice pack as needed and manual massage as needed. PT Short Term Goals Short Term Goals Time Frame: September 05, 2017 Gait (FIM): 1 Gait Distance Comment: 40' Gait Level of Assist: 4 Gait Assistive Device: FWW Wheelchair Distance: 50' PT Brake Repairer Hydraulic Goals Brake Repairer Hydraulic Goals PT Long-Term Goals Time Frame: September 19, 2017 Transfers (B,C,W/C) (FIM): 5 Sit to Lying (QC): 6 Lying-Sitting on Side/Bed(QC): 6 Sit to Stand (QC): 4 Rollin Roll Left to Right (QC): 6 Chair/Fsa-fb-Hdoys Xfer(QC): 4 Car Transfer (QC): 4 Gait (FIM): 2 Distance: 100' Walk 10 feet (QC): 4 Walk 10ft-Uneven Surface(QC): 4 Walk 50ft with 2 Turns (QC): 4 Gait Level of Assist: 5 Gait Assistive Device: FWW Stairs (FIM): 2 # of Steps: 4 1 Step (curb) (QC): 4 4 Steps (QC): 4 Stairs Level Of Assist: 4 PT Plan Problem List Problem List: Activity Tolerance, Functional Strength Treatment/Plan Treatment Plan: Continue Plan of Care Treatment Plan: Bed Mobility, Education, Functional Activity Jose David, Functional Strength, Group Therapy, Gait, Safety, Therapeutic Exercise, Transfers Treatment Duration: September 19, 2017 Frequency: At least 5 of 7 days/Wk (IRF) Estimated Hrs Per Day: 1.5 hours per day Patient and/or Family Agrees t: Yes Safety Risks/Education Patient Education: Gait Training, Transfer Techniques, Steps, Correct Positioning, Safety Issues Teaching Recipient: Patient Teaching Methods: Discussion Response to Teaching: Verbalize Understanding Time/GCodes Time In: 900 Time Out: 1000 Total Billed Treatment Time: 60 Total Billed Treatment 1, GT (20m), FA x2 (30m) & EX (10m) G Codes Necessary: MASON Gonsalez MACHINE WASHER September 06, 2017 11:03
--- NOTE | 2017-09-06 14:35 | Therapy Group Daily Note ---
Therapy Daily Group Note Patient Education Topic Energy Cons Exercises LE Seated Exercise, UE Exercise Other/Notes Pt ambulated to PT/OT Group using FWW. Group consisted of Introductions (Name, Where you are from & your favorite day activity), Socialization, UE & LE Seated Exercises and Energy Conservation/Fatigue Prevention. Pt actively participated in Group by giving verbal responses during Group discussion of Energy Conservation and performing Seated Exercises without assistance. Pt gave an example of one item the pt is already doing to conserve energy. Pt returned to room at end of Group to rest Supine in bed with all needs met, including call light next to pt. Start Time: 13:00 Stop Time: 14:15 Total Billed Treatment Time: 75 Total Billed Treatment 1, GRP MASON COATES LENDING CONSULTANT September 06, 2017 14:35
[2017-09-06] MEDS ORDERED: ACHD5005 PO (15:10)
[2017-09-06 18:00] VITALS: BP 126/79
[2017-09-06] MEDS: OMEGA 3 (FISH OIL) 1000 MG CAP PO SCH (20:45)
[2017-09-06] MEDS: TIMOLOL MALEATE 0.5% 5 ML (TIMOPTIC) BTL OU SCH (20:45)
[2017-09-06] MEDS: ALLOPURINOL 300 MG (ZYLOPRIM) TAB PO SCH (20:46)
[2017-09-06] MEDS: ASPIRIN E.C. 81 MG (ECOTRIN) TAB PO SCH (20:48)
[2017-09-07 05:33] VITALS: BP 154/74
[2017-09-07] MEDS: inSUlin ASPART (NovoLOG) 1 UNIT/0.01 ML (CHARGE PER UNIT) SC SCH ×3 (06:00→16:04)
[2017-09-07] MEDS: glyBURIDE 2.5 MG (MICRONASE) TAB PO SCH (06:51)
[2017-09-07] MEDS: MULTIVIT W/MINERALS TAB (THERAGRAN M) PO SCH (06:51)
--- NOTE | 2017-09-07 08:05 | PM & R (SOAP) Progress Note ---
Subjective This was a face to face visit with the patient. Date Seen by Provider: September 07, 2017 Time Seen by Provider: 07:45 Subjective/Events-last exam Patient was seen in her room this AM All set for discharge today Objective Physician Exam Last Set of Vital Signs Vital Signs Date Time Temp Pulse Resp B/P (MAP) Pulse Ox O2 Delivery O2 Flow Rate FiO2 09/07/17 05:33 98.0 71 18 154/74 (100) 93 Nasal Cannula 1.00 Capillary Refill : Less Than 3 Seconds I&O Intake and Output 09/07/17 00:00 Intake Total 1140 ml Balance 1140 ml Intake Oral 1140 ml # Voids 7 # Bowel Movements 1 General: Alert, Oriented X3, Cooperative, No Acute Distress HEENT: Atraumatic, PERRLA, EOMI, Mucous Memb Moist/[place] Neck: Supple, No JVD Lungs: Clear to Auscultation Heart: Regular Rate Abdomen: Normal Bowel Sounds, Soft, No Tenderness Extremities: No Edema Neuro: Other (Sensation intact Cognition intact Strength good except for left LLE due to recent frx and repair) Results Lab Data Laboratory Tests 09/04/17 11:09: Glucometer 84 09/04/17 16:22: Glucometer 109 09/04/17 20:21: Glucometer 119H 09/05/17 06:49: Glucometer 117H 09/05/17 11:18: Glucometer 80 09/05/17 16:31: Glucometer 111H 09/05/17 20:39: Glucometer 128H 09/06/17 05:25: Glucometer 121H 09/06/17 10:56: Glucometer 106 09/06/17 16:51: Glucometer 102 09/06/17 20:44: Glucometer 156H 09/07/17 05:25: Glucometer 98 Assessment/Plan Assessment and Plan Discharge today to home with spouse and HHC F/U with DR Julius quarles and ortho See orders Home with suppplemental 02 at night Current meds reviewed (1) Closed subcapital fracture of neck of left femur Status: Acute Co-Morbidities that are continuing to impact the rehab process: (include details ) LIBERTAD LIPSCOMB MD September 07, 2017 08:05
[2017-09-07] MEDS: GEMFIBROZIL 600 MG (LOPID) TAB PO SCH (08:14)
[2017-09-07] MEDS: LOSARTAN 25 MG (COZAAR) TAB PO SCH (08:14)
[2017-09-07] MEDS: ENOXAPARIN 30 MG/0.3 ML (LOVENOX) SYR SC SCH (08:15)
--- NOTE | 2017-09-07 09:39 | Therapy Team Discharge Summary ---
Therapy Discharge Summary Discharge Recommendations Date of Discharge Therapy D/C Recommendations: Home w/ Family Support, Occupational Therapy Home Care Physical Therapy This patient has been seen on ARU post fall that she sustained a left hip fracture. Prior to fall, pt was indep with all mobility. Upon admission to this unit, she required min assist with transfers, ambulated 20 ft with FWW with min assist TTWB, unable to attempt stairs due to functional weakness and fall risk. Treatment focused on bed mobility, transfers, gait, functional strength/activity tolerance, safety with goal to return home. She has made good progress and has met goals to a satisfactory level to discharge home. At discharge, she was SBA with transfers, mod indep with gait, able to go up/down 4 steps with light assist. She remains TTWB so this remains a barrier. Pt to discharge home and recommend follow up [facility] PT. DC PT. Occupational Therapy Decreased Activ Tolerance, Dependent Transfers, Impaired I ADL's, Impaired Self- Care Skills PT Product Safety Associate Goals Product Safety Associate Goals PT Long-Term Goals Time Frame: September 19, 2017 Transfers (B,C,W/C) (FIM): 5 (met) Roll Left to Right (QC): 6 Sit to Lying (QC): 6 Lying-Sitting on Side/Bed(QC): 6 Sit to Stand (QC): 4 Chair/Zyp-oa-Devin Xfer(QC): 4 Car Transfer (QC): 4 Gait (FIM): 2 (exceeded) Distance: 100' Walk 10 feet (QC): 4 Walk 10ft-Uneven Surface(QC): 4 Walk 50ft with 2 Turns (QC): 4 Gait Level of Assist: 5 Gait Assistive Device: FWW Stairs (FIM): 2 (met) # of Steps: 4 1 Step (curb) (QC): 4 4 Steps (QC): 4 Stairs Level Of Assist: 4 OT Long-Term Goals Long-Term Goals Time Frame: September 19, 2017 Eating (FIM): 6 (met-09/06/2017) Eating (QC): 6 (met-09/06/2017) Oral Hygiene (QC): 6 (met-09/06/2017) Grooming(FIM): 6 (met-09/06/2017) Bathing(FIM): 5 (met-09/06/2017) Shower/Bathe Self (QC): 5 (met-09/06/2017) Upper Body Dressing(FIM): 6 (09/06/2017) Upper Body Dressing (QC): 6 (09/06/2017) Lower Body Dressing(FIM): 5 (09/06/2017) Lower Body Dressing (QC): 5 (09/06/2017) On/Off Footwear (QC): 6 (09/06/2017) Toileting(FIM): 6 (09/06/2017) Toileting Hygiene (QC): 6 (09/06/2017) Toilet/Commode Transfer(FIM): 6 (09/06/2017) Toilet/Commode Transfer (QC): 6 (09/06/2017) Shower Transfer(FIM): 5 (09/06/2017) Additional Goals: 1-Demonstrate ADL Tasks, 2-Verbalize Understanding, 3- ImproveStrength/Jose David 1=Demonstrate adherence to instructed precautions during ADL tasks. 2=Patient will verbalize/demonstrate understanding of assistive devices/ modifications for ADL. 3=Patient will improve strength/tolerance for activity to enable patient to perform ADL's. CRISTOBAL UREÑA PT September 07, 2017 09:39
--- NOTE | 2017-09-07 11:51 | Therapy Team Discharge Summary ---
Therapy Discharge Summary Discharge Recommendations Date of Discharge Therapy D/C Recommendations: Home w/ Family Support, Occupational Therapy Home Care Occupational Therapy Pt admitted to ARU following acute hospitalization for left hip fracture. Pt is TTWB left LE. On admission pt required min assist for transfer, bathing, toileting, and UE dressing, and max assist for LE dressing. Skilled OT intervention focused on ADL training, transfers, strengthening, and adaptive equipment training. Pt made good progress with therapy and by discharge is completing basic ADLs and transfer with modified independence. Pt met all OT LTG. Pt discharging home this date. D/C ARU OT at this time. PT Half-Way Goals Outreach Counselor Goals PT Outreach Counselor Goals Time Frame: September 19, 2017 Transfers (B,C,W/C) (FIM): 5 (met) Roll Left to Right (QC): 6 Sit to Lying (QC): 6 Lying-Sitting on Side/Bed(QC): 6 Sit to Stand (QC): 4 Chair/Cez-xj-Xugnu Xfer(QC): 4 Car Transfer (QC): 4 Gait (FIM): 2 (exceeded) Distance: 100' Walk 10 feet (QC): 4 Walk 10ft-Uneven Surface(QC): 4 Walk 50ft with 2 Turns (QC): 4 Gait Level of Assist: 5 Gait Assistive Device: FWW Stairs (FIM): 2 (met) # of Steps: 4 1 Step (curb) (QC): 4 4 Steps (QC): 4 Stairs Level Of Assist: 4 OT Half-Way Goals Half-Way Goals Time Frame: September 19, 2017 Eating (FIM): 6 (met-09/06/2017) Eating (QC): 6 (met-09/06/2017) Oral Hygiene (QC): 6 (met-09/06/2017) Grooming(FIM): 6 (met-09/06/2017) Bathing(FIM): 5 (met-09/06/2017) Shower/Bathe Self (QC): 5 (met-09/06/2017) Upper Body Dressing(FIM): 6 (met-09/06/2017) Upper Body Dressing (QC): 6 (met-09/06/2017) Lower Body Dressing(FIM): 5 (met-09/06/2017) Lower Body Dressing (QC): 5 (met-09/06/2017) On/Off Footwear (QC): 6 (met-09/06/2017) Toileting(FIM): 6 (met-09/06/2017) Toileting Hygiene (QC): 6 (met-09/06/2017) Toilet/Commode Transfer(FIM): 6 (met-09/06/2017) Toilet/Commode Transfer (QC): 6 (met-09/06/2017) Shower Transfer(FIM): 5 (met-09/06/2017) Additional Goals: 1-Demonstrate ADL Tasks, 2-Verbalize Understanding, 3- ImproveStrength/Jose David 1=Demonstrate adherence to instructed precautions during ADL tasks. 2=Patient will verbalize/demonstrate understanding of assistive devices/ modifications for ADL. 3=Patient will improve strength/tolerance for activity to enable patient to perform ADL's. HARDIK HARTMAN OT September 07, 2017 11:51
[2017-09-07 17:14] VITALS: BP 134/74
[2017-09-07 18:03] VITALS: BP 134/74
--- NOTE | 2017-09-19 12:45 | DISCHARGE SUMMARY ---
DATE OF SERVICE: HISTORY OF PRESENT ILLNESS: The patient is a 81-year-old female, who had been independent living with her spouse in [place], [place], who fell and sustained a fracture of the neck and left femur. The patient was admitted to [facility] and had cannulated screw fixation. The patient was made touchdown weightbearing left lower extremity postoperatively by Dr. Hutchinson, Orthopedics. The patient was followed in the perioperative period by hospitalist service in lieu of PCP. The patient was then referred to inpatient rehabilitation unit for ongoing care and therapies with goal of maximizing level of functional independence prior to discharge home with spouse. PAST MEDICAL HISTORY: Hyponatremia, hypertension, prior fall with left shoulder injury. PAST SURGICAL HISTORY: She has had ear surgery, left total knee replacement, and hysterectomy. PRIMARY CARE PHYSICIAN: Dr. Madrid. MEDICAL COURSE: The patient was followed by Dr. Nugent and hospitalist service on rehab unit. There was an attempt to wean, but she continued to require O2 by nasal cannula at night during sleep and a prescription for this was provided. She will have followup with her PCP regarding any renewal required for this. She was afebrile during her stay. Pulse on 09/07, was 71, respirations 18, blood pressure 134/74, O2 sat 94% on room air at rest during the day, and 93% on 1 liter of O2 at night. Glucometer readings from 09/05 to 09/07, varied between 80 and 156. REHABILITATION COURSE: She progressed well with therapy. She had increased strength and endurance, decreased pain. Incision was healing well. She was assessed by Speech Therapy. Upon admission to rehab unit, found to be cognitively intact and they signed off. PT notes prior to fall, patient was independent with all mobility. Upon admission to the rehab unit, she required min assist for transfers, could ambulate 20 feet with a front wheel walker, min assist toe touch weightbearing left lower extremity. She made good progress and upon discharge, she is standby assist with transfers, modified independent with gait, able go up and down four steps with a little assistance. She remains toe touch weightbearing until advanced by Orthopedics on an outpatient basis and this remains a barrier to further progressing her long, but she will have home health care, PT. OT notes upon admission, the patient required min assist for transfers, bathing, toileting and upper body dressing and max assist for lower body dressing. The patient has made good progress and by discharge was completing basic ADLs and transfers with modified independence. DISCHARGE INSTRUCTIONS: The patient was discharged to home with home health care and her spouse. She will have followup with Orthopedics and Dr. Madrid, her PCP as per their schedule. Continue current diet. O2 by nasal cannula at night to maintain sats 92% or better. DISCHARGE MEDICATIONS: Hydrocodone and acetaminophen 5/325 1-2 tablets p.o. q.4 hours p.r.n. moderate pain, allopurinol 300 mg p.o. each day at bedtime, ASA 81 mg p.o. each day at bedtime, gemfibrozil 600 mg p.o. daily, glyburide 1.25 mg p.o. daily, losartan 25 mg p.o. daily, multivitamins with calcium, iron and minerals one tablet p.o. daily, fish oil 1000 mg p.o. each day at bedtime, Systane eyedrops one drop both eyes q.i.d. p.r.n. dry eyes, Betimol 1 drop both eyes at bedtime. DISCHARGE DIAGNOSES: 1. Rehabilitation ambulatory dysfunction secondary to fall with left femoral neck fracture status post screw fixation by Dr. Hutchinson, toe touch weightbearing left lower extremity. 2. Hypertension, controlled with medication. 3. Postop nausea, resolved. 4. Diabetes mellitus, oral medication. 5. Hypercholesterolemia. 6. Left femoral fracture due to fall. 7. Constipation, treated. 8. Respiratory insufficiency, on O2 at bedtime. CONDITION AT DISCHARGE: Improved and stable. PROGNOSIS: Rehab prognosis appears good for continued improvement at home, particularly once her weightbearing is advanced to as tolerated by Orthopedics on an outpatient basis in the next few weeks. Job ID: [id number] DocumentID: [id number] Dictated Date: 09/18/2017 13:14:21 Hr Internship Date: 09/19/2017 12:45:04 Dictated By: LIBERTAD NUGENT MD [facility]
== END 2017-09-07 18:05 | disposition home health service (06) | DRG 561 ==
PROVIDERS: ADMIT Physical Medicine & Rehabilitation; ATTEND Physical Medicine & Rehabilitation
DX: S72.012D Unspecified intracapsular fracture of left femur, subsequent encounter for closed fracture with routine healing (principal); I10 Essential (primary) hypertension; R11.0 Nausea; E11.9 Type 2 diabetes mellitus without complications; E78.00 Pure hypercholesterolemia, unspecified; K59.00 Constipation, unspecified; R06.89 Other abnormalities of breathing; Z79.84 Long term (current) use of oral hypoglycemic drugs; W19.XXXD Unspecified fall, subsequent encounter
CPT/HCPCS: 73560; 82962; 94761

== ENCOUNTER → 2021-05-16 | Outpatient (CLI) | payer MEDICARE, OTHER ==
[~2021-05-16] MED LIST changes: -GEMF600T3 PO; +GEMF600T88 PO; -LOSA25TA21 PO; +LOSA25TA41 PO; -SENN-140 PO; +SENN-234 PO
--- NOTE | 2021-05-16 15:40 | Diagnostic Imaging Report ---
INDICATION: Pneumonia. TIME OF EXAM: 03:16 p.m. COMPARISON: Comparison is made with prior chest from 08/27/2017. FINDINGS: Heart size is normal. Lungs are clear. No infiltrates are detected. There is no effusion or pneumothorax. There are postop changes to the left shoulder. There is a compression fracture deformity involving L1 vertebral body, age indeterminate. IMPRESSION: 1. No acute cardiopulmonary process detected. 2. Age-indeterminate L1 compression fracture. Dictated by: Dictated on workstation # [id number]
== END ==
LOC: RAD FS 15:07
PROVIDERS: ATTEND Nurse Practitioner Family
DX: M48.56XA Collapsed vertebra, not elsewhere classified, lumbar region, initial encounter for fracture (principal); J12.9 Viral pneumonia, unspecified
CPT/HCPCS: 71046

== ENCOUNTER → 2021-08-30 | Outpatient (CLI) | payer MEDICARE ==
--- NOTE | 2021-08-30 14:57 | Diagnostic Imaging Report ---
INDICATION: Postmenopausal screening COMPARISON: Baseline FINDINGS: AP Spine L1-L4: [BMD (g/cm2): 1.254] [T-Score: 0.4] [Z-Score: 1.6] [BMD Previous: NA] [BMD % Change: NA] LT Hip Neck: [BMD (g/cm2): NA] [T-Score: NA] [Z-Score: NA] LT Hip Total: [BMD (g/cm2):NA] [T-Score:NA] [Z-Score: NA] [BMD Previous: NA] [BMD % Change: NA] RT Hip Neck: [BMD (g/cm2):0.808] [T-Score:-1.7] [Z-Score:0.2] RT Hip Total: [BMD (g/cm2):0.892] [T-score:-0.9] [Z-Score:0.8] [BMD Previous:NA] [BMD % Change:NA] *Indicates significant change from prior examination based on 95% confidence level. World Health Organization criteria for BMD interpretation classify patients as Normal (T-score at or above -1.0), Osteopenic (T-score between -1.0 and -2.5) or Osteoporotic (T-score at or below -2.5). LIMITATIONS AND MODIFICATION: None. FRACTURE RISK (FRAX SCORE): The ten year probability of (%): Major Osteoporotic Fracture: [NA] Hip Fracture: [NA] IMPRESSION: 1. Normal bone mineral density. 2. Baseline examination. 3. See below National Osteoporosis Foundation guidelines on when to potentially initiate pharmacologic therapy. Based on the National Osteoporosis Foundation Guidelines, pharmacologic treatment should be initiated in any of the following, unless clinical conditions suggest otherwise: * Any patient with prior fragility fracture of the hip or vertebrae. A spine fracture indicates 5X risk for subsequent spine fracture and 2X risk for subsequent hip fracture. * Osteoporosis (T-score <-2.5). * Postmenopausal women and men age 50 and older with low bone mass/osteopenia (T-score between -1.0 and -2.5) by DXA and 10-year major osteoporotic fracture greater than 20% or a 10-year probability of hip fracture greater than 3%. These fracture risks are supplied above in the FRAX score, if applicable. * Clinician judgement and/or patient preferences may indicate treatment for people with 10-year fracture probabilities above or below these levels. Dictated by: Dictated on workstation # [id number]
== END ==
LOC: RAD 13:05
PROVIDERS: ATTEND Emergency Medicine
DX: Z13.820 Encounter for screening for osteoporosis (principal); M81.0 Age-related osteoporosis without current pathological fracture; Z78.0 Asymptomatic menopausal state
CPT/HCPCS: 77080

== ENCOUNTER 2022-08-05 12:15 | Emergency (ER) | payer MEDICARE ==
[~2022-08-05] VITALS: Ht 162.6 cm; Wt 85.3 kg
[~2022-08-05 12:15] MED LIST changes: +BISA5TAB20 PO; -BISA5TAB8 PO
[2022-08-05] MEDS ORDERED: IBUPROFEN TABLET 200 MG TAB PO STA (12:17)
--- NOTE | 2022-08-05 12:17 | ED Fever ---
History of Present Illness General Chief Complaint: Cough/Cold/Flu Symptoms History of Present Illness Date Seen by Provider: Aug 05, 2022 Time Seen by Provider: 12:17 Initial Comments 86-year-old female presents with not feeling well for about 3 days. She is can have some body aches, fever and chills. Some mild stomach discomfort. She denies any urinary symptoms, cough, sore throat. Patient reports that her symptoms just feel worse today and so she was brought in by EMS. Denies any nausea, vomiting, diarrhea. Allergies and Home Medications Allergies Coded Allergies: No Known Drug Allergies (Unverified , 08/27/17) Patient Home Medication List Home Medication List Reviewed: Yes Allopurinol (Allopurinol) 300 Mg Tablet, 300 MG PO HS, (Reported) Entered as Reported by: LOGAN SILVEIRA on 08/27/171953 Aspirin (Aspir 81) 81 Mg Tablet.dr, 81 MG PO HS, (Reported) Entered as Reported by: LOGAN SILVEIRA on 08/27/171953 Cephalexin (Cephalexin) 500 Mg Tablet, 500 MG PO QID Prescribed by: GUALBERTO HENDRICKS on 08/05/22 1417 Gemfibrozil (Gemfibrozil) 600 Mg Tablet, 600 MG PO DAILY, (Reported) Entered as Reported by: LOGAN SILVEIRA on 08/27/171953 Glyburide (Glyburide) 1.25 Mg Tablet, 1.25 MG PO DAILY, (Reported) Entered as Reported by: LOGAN SILVEIRA on 08/27/171953 Hydrocodone Bit/Acetaminophen (Lortab 5 Mg Tablet) 1 Tab Tab, 1-2 TAB PO Q4H PRN for PAIN-MODERATE Prescribed by: LIBERTAD LIPSCOMB on 09/06/17 1510 Losartan Potassium (Losartan Potassium) 25 Mg Tablet, 25 MG PO DAILY, (Reported) Entered as Reported by: LOGAN SILVEIRA on 08/27/171953 Multivit with Calcium,Iron,Min (Women's Daily Formula) 1 Each Tablet, 1 TAB PO DAILY, (Reported) Entered as Reported by: WHITNEY ALEXANDRA on 08/28/17 0950 [place] 3 Polyunsat Fatty Acids (Fish Oil 1,000 mg Capsule) 1,000 Mg Cap, 1,000 MG PO HS, (Reported) Entered as Reported by: CINDY KARIMI on 08/28/17 0434 Propylene Glycol/Peg 400 (Systane 0.3-0.4% Eye Drops) 15 Ml Drops, 1 DROP OU QID PRN for DRY EYES, (Reported) Entered as Reported by: WHITNEY ALEXANDRA on 08/28/17 0950 Timolol (Betimol) 5 Ml Drops, 1 DROP OU HS, (Reported) Entered as Reported by: WHITNEY ALEXANDRA on 08/28/17 0950 Review of Systems Review of Systems Constitutional: chills, fever, malaise EENTM: no symptoms reported Respiratory: no symptoms reported Cardiovascular: no symptoms reported Gastrointestinal: see HPI Genitourinary: no symptoms reported Musculoskeletal: no symptoms reported Skin: no symptoms reported Psychiatric/Neurological: No Symptoms Reported Physical Exam Vital Signs - First Documented 08/05/22 12:15 Temp 37.0 Pulse 82 Resp 18 B/P (MAP) 144/54 (84) Pulse Ox 91 O2 Delivery Room Air Capillary Refill : Height: '" Weight: lbs. oz. kg; BMI Method: General Appearance: WD/WN, no apparent distress HEENT: pharynx normal Respiratory: lungs clear, normal breath sounds Cardiovascular: normal peripheral pulses, regular rate, rhythm Gastrointestinal: soft; No distended, No guarding, No rebound; tenderness (Mild diffuse) Neurologic/Psychiatric: alert, normal mood/affect, oriented x 3 Skin: normal color, warm/dry Focused Exam Lactate Level 08/05/22 12:20: Lactic Acid Level 2.01*H Lactic Acid Level Laboratory Tests Test 08/05/22 12:20 Lactic Acid Level 2.01 MMOL/L (0.50-2.00) *H Progress/Results/Core Measures Suspected Sepsis SIRS Temperature: Pulse: Respiratory Rate: Laboratory Tests 08/05/22 12:20: White Blood Count 3.5L Blood Pressure / Mean: 08/05/22 12:20: Lactic Acid Level 2.01*H Laboratory Tests 08/05/22 12:20: Creatinine 1.30, Platelet Count 167, Total Bilirubin 0.7 Results/Orders Lab Results Laboratory Tests Test 08/05/22 12:20 08/05/22 14:10 Range/Units White Blood Count 3.5 L 4.3-11.0 10^3/uL Red Blood Count 4.49 3.80-5.11 10^6/uL Hemoglobin 13.4 11.5-16.0 g/dL Hematocrit 42 35-52 % Mean Corpuscular Volume 93 80-99 fL Mean Corpuscular Hemoglobin 30 25-34 pg Mean Corpuscular Hemoglobin Concent 32 32-36 g/dL Red Cell Distribution Width 13.7 10.0-14.5 % Platelet Count 167 130-400 10^3/uL Mean Platelet Volume 10.5 9.0-12.2 fL Immature Granulocyte % (Auto) 1 % Neutrophils (%) (Auto) 74 42-75 % Lymphocytes (%) (Auto) 24 12-44 % Monocytes (%) (Auto) 1 0-12 % Eosinophils (%) (Auto) 1 0-10 % Basophils (%) (Auto) 0 0-10 % Neutrophils # (Auto) 2.6 1.8-7.8 10^3/uL Lymphocytes # (Auto) 0.8 L 1.0-4.0 10^3/uL Monocytes # (Auto) 0.0 0.0-1.0 10^3/uL Eosinophils # (Auto) 0.0 0.0-0.3 10^3/uL Basophils # (Auto) 0.0 0.0-0.1 10^3/uL Immature Granulocyte # (Auto) 0.0 0.0-0.1 10^3/uL Sodium Level 139 135-145 MMOL/L Potassium Level 3.9 3.6-5.0 MMOL/L Chloride Level 102 98-107 MMOL/L Carbon Dioxide Level 24 21-32 MMOL/L Anion Gap 13 5-14 MMOL/L Blood Urea Nitrogen 34 H 7-18 MG/DL Creatinine 1.30 0.60-1.30 MG/DL Estimat Glomerular Filtration Rate 41 BUN/Creatinine Ratio 26 Glucose Level 102 70-105 MG/DL Lactic Acid Level 2.01 *H 0.50-2.00 MMOL/L Calcium Level 10.3 H 8.5-10.1 MG/DL Corrected Calcium 10.3 H 8.5-10.1 MG/DL Total Bilirubin 0.7 0.1-1.0 MG/DL Aspartate Amino Transf (AST/SGOT) 16 5-34 U/L Alanine Aminotransferase (ALT/SGPT) 9 0-55 U/L Alkaline Phosphatase 119 40-136 U/L C-Reactive Protein 11.97 H <0.50 MG/DL Total Protein 7.2 6.4-8.2 GM/DL Albumin 4.0 3.2-4.5 GM/DL Influenza Type A (RT-PCR) Not Detected Not Detecte Influenza Type B (RT-PCR) Not Detected Not Detecte SARS-CoV-2 RNA (RT-PCR) Not Detected Not Detecte Urine Color YELLOW Urine Clarity CLOUDY Urine pH 6.0 5-9 Urine Specific [place] 1.020 1.016-1.022 Urine Protein 2+ H NEGATIVE Urine Glucose (UA) 3+ H NEGATIVE Urine Ketones NEGATIVE NEGATIVE Urine Nitrite POSITIVE H NEGATIVE Urine Bilirubin NEGATIVE NEGATIVE Urine Urobilinogen 0.2 < = 1.0 MG/DL Urine Leukocyte Esterase 2+ H NEGATIVE Urine RBC (Auto) 1+ H NEGATIVE Urine RBC NONE /HPF Urine WBC TNTC H /HPF Urine Squamous Epithelial Cells NONE /HPF Urine Crystals NONE /LPF Urine Bacteria LARGE H /HPF Urine Casts NONE /LPF Urine Mucus NEGATIVE /LPF Urine Culture Indicated YES My Orders Orders - HENDRICKS,GUALBERTO L DO Cbc With Automated Diff (08/05/22 12:17) Comprehensive Metabolic Panel (08/05/22 12:17) Ua Culture If Indicated (08/05/22 12:17) Influenza A And B By Pcr (08/05/22 12:17) Crp Fs (08/05/22 12:17) Covid 19 Inhouse Test (08/05/22 12:17) Chest Pa/Lat (2 View) (08/05/22 12:17) Ibuprofen Tablet (Motrin Tablet) (08/05/22 12:17) Ed Iv/Invasive Line Start (08/05/22 12:17) Ns Iv 500 Ml (Sodium Chloride 0.9%) (08/05/22 12:30) Ct Abdomen/Pelvis W (08/05/22 13:09) Iohexol Injection (Omnipaque 350 Mg/Ml 1 (08/05/22 13:15) Received Contrast (Hold Metformin- Contr (08/05/22 13:15) Ns (Ivpb) (Sodium Chloride 0.9% Ivpb Bag (08/05/22 13:15) Ceftriaxone 1 Gm Pre-Mix (Rocephin 1 Gm (08/05/22 14:05) Urine Culture (08/05/22 14:10) Ns Iv 1000 Ml (Sodium Chloride 0.9%) (08/05/22 14:32) Lactic Acid Analyzer (08/05/22 15:09) Blood Culture (08/05/22 15:09) Medications Given in ED Current Medications Medications Dose Ordered Sig/[place] Route Start Time Stop Time Status Last Admin Dose Admin Iohexol 100 ml ONCE ONCE IV 08/05/22 13:15 08/05/22 13:16 DC 08/05/22 13:32 80 ML Sodium Chloride 100 ml ONCE ONCE IV 08/05/22 13:15 08/05/22 13:16 DC 08/05/22 13:32 100 ML Sodium Chloride 500 ml @ 0 mls/hr Q0M ONCE IV 08/05/22 12:30 08/05/22 12:31 DC 08/05/22 12:39 500 MLS/HR Vital Signs/I&O 08/05/22 12:15 Temp 37.0 Pulse 82 Resp 18 B/P (MAP) 144/54 (84) Pulse Ox 91 O2 Delivery Room Air Capillary Refill : Progress Note : Progress Note Patient's diagnostic studies were ordered reviewed and interpreted by me. She had a decrease white count and elevated CRP. Urine does look concerning for urinary tract infection. Chest x-ray was ordered, reviewed with initial interpretation and negative by me with final results per radiology report. Due to patient having, diffuse nonspecific abdominal pain and fever a CT abdomen pelvis was obtained. CT was reviewed and shows some mild hydronephrosis and likely early urinary tract infection and early pyelonephritis. Patient will be treated with Rocephin 1 g IV in the ER and discharged on Keflex. Patient would prefer to be discharged home for outpatient therapy trial versus inpatient treatment. She should return to the ER with any concerns. I did highly recommend she follows up with her primary care provider early next week to ensure she is improving and possible urology consultation if indicated. Right around discharge patient had a couple low blood pressure readings. She was given a 1 L normal bolus saline prior to discharge. Patient's blood pressure readings seem to be very sporadic and is unsure how accurate they were. Her last blood preblood pressure just upon standing was in the systolics of around 100. Patient was offered admission but declined at this time. They feel that if her symptoms worsen they will return to the ER or proceed to [facility] where they would be admitted. I felt that that is probably appropriate as she does not appear toxic, her lactic is not significantly elevated, she is not tachycardic and is afebrile. She was stable upon discharge. Diagnostic Imaging Diagonstic Imaging: CT Plain Films/CT/US/NM/MRI: abdomen, pelvis Comments Date of Exam:08/05/22 CT ABDOMEN/PELVIS W PROCEDURE: CT abdomen and pelvis with contrast. TECHNIQUE: Multiple contiguous axial images were obtained through the abdomen and pelvis after administration of intravenous contrast. Auto Exposure Controls were utilized during the CT exam to meet ALARA standards for radiation dose reduction. All CT scans use one or more of the following dose optimizing techniques: automated exposure control, MA and/or KvP adjustment based on patient size and exam type or iterative reconstruction. INDICATION: 86-year-old female, fever, abdominal pain. CORRELATION STUDY: None. FINDINGS: LOWER THORAX: Minimal basilar atelectasis. Small esophageal hernia. Scattered coronary artery and cardiac valvular calcification. LIVER: Mild fatty infiltration without focal lesion. GALLBLADDER: Absent. SPLEEN: Unremarkable. PANCREAS: Atrophic. ADRENAL GLANDS: Unremarkable. KIDNEYS: Mild left-sided hydroureter with thickening of the ureteric wall and mild stranding. Question of very punctate calcification of the distal left ureter. There is also mild left perinephric stranding. Right kidney collecting system is unremarkable. ABDOMINAL AORTA: Moderate wall calcification, nonaneurysmal. GASTROINTESTINAL TRACT: Stomach is decompressed. No small bowel obstruction. Moderate stool in the colon with colonic diverticulosis. No acute diverticulitis. URINARY BLADDER: Unremarkable. REPRODUCTIVE: Hysterectomy. OSSEOUS STRUCTURES: Metallic artifact from 3 pins in the proximal left femur. No acute bony abnormality. Likely nonacute L1 compression fracture with over 50% loss of height. OTHER: None. IMPRESSION: 1. Mild dilatation of the left ureter along with ureteric thickening. Very questionable punctate calcification in the low left ureter may be resulting in the obstruction. Slight engorgement of the left kidney along with perinephric stranding. Question of superimposed infection. 2. Diverticulosis without definite diverticulitis. Reviewed: Reviewed by Me, Reviewed/Discussed Departure Impression Primary Impression: Urinary tract infection Qualified Codes: N39.0 - Urinary tract infection, site not specified; R31.9 - Hematuria, unspecified Disposition: 01 HOME, SELF-CARE Condition: Stable Departure-Patient Inst. Patient Instructions: Kidney Infection, Urinary Tract Infection, Adult (DC) Add. Discharge Instructions: Please follow-up with your primary care provider early next week. You may use Tylenol or ibuprofen as needed for fever and body aches. Return to the ER with any concerns All discharge instructions reviewed with patient and/or family. Voiced understanding. Scripts Cephalexin (Cephalexin) 500 Mg Tablet 500 MG PO QID, #28 TAB 0 Refills Prov: GUALBERTO HENDRICKS DO 08/05/22 GUALBERTO HENDRICKS DO Aug 05, 2022 12:17
[2022-08-05 12:29] LABS: BASOPHILS % (AUTO) 0 % (0-10); EOSINOPHILS % (AUTO) 1 % (0-10); HEMATOCRIT 42 % (35-52); HEMOGLOBIN 13.4 g/dL (11.5-16.0); LYMPHOCYTES # (AUTO) 0.8 10^3/uL (1.0-4.0); LYMPHOCYTES % (AUTO) 24 % (12-44); MEAN CORPUSCULAR HEMOGLOBIN 30 pg (25-34); MEAN CORPUSCULAR HGB CONC 32 g/dL (32-36); MEAN CORPUSCULAR VOLUME 93 fL (80-99); MEAN PLATELET VOLUME 10.5 fL (9.0-12.2); MONOCYTES % (AUTO) 1 % (0-12); NEUTROPHILS # (AUTO) 2.6 10^3/uL (1.8-7.8); NEUTROPHILS % (AUTO) 74 % (42-75); PLATELET COUNT 167 10^3/uL (130-400); WHITE BLOOD COUNT 3.5 10^3/uL (4.3-11.0)
[2022-08-05] MEDS ORDERED: NS IV 500 ML 500 ML IV ONE (12:30)
[2022-08-05 12:49] LABS: BILIRUBIN,TOTAL 0.7 MG/DL (0.1-1.0); CALCIUM 10.3 MG/DL (8.5-10.1); CREATININE SERUM 1.3 MG/DL (0.60-1.30); POTASSIUM 3.9 MMOL/L (3.6-5.0); TOTAL PROTEIN 7.2 GM/DL (6.4-8.2)
--- NOTE | 2022-08-05 13:03 | Diagnostic Imaging Report ---
EXAMINATION: Chest 2 view HISTORY: Fever. COMPARISON: 05/16/2021. FINDINGS: The lung volumes are normal. No focal consolidation is seen. No large pleural effusion or pneumothorax is seen. The cardiomediastinal silhouette is normal in size and contour. There is calcified aortic atherosclerotic plaque. No acute osseous abnormality is seen. Chronic height loss is seen in a lower thoracic/upper lumbar vertebral body. IMPRESSION: No acute pleuroparenchymal process. Dictated by: Dictated on workstation # [id number]
[2022-08-05] MEDS ORDERED: NS 100 ML (IVPB) BAG IV ONE (13:15)
[2022-08-05] MEDS ORDERED: IOHEXOL 350 MG/ML 100 ML (OMNIPAQUE 350) VIAL IV ONE (13:15)
[2022-08-05] MEDS ORDERED: HOLD METFORMIN - RECEIVED CONTRAST 20 ML VIAL IV SCH (13:15)
--- NOTE | 2022-08-05 13:57 | Diagnostic Imaging Report ---
PROCEDURE: CT abdomen and pelvis with contrast. TECHNIQUE: Multiple contiguous axial images were obtained through the abdomen and pelvis after administration of intravenous contrast. Auto Exposure Controls were utilized during the CT exam to meet ALARA standards for radiation dose reduction. All CT scans use one or more of the following dose optimizing techniques: automated exposure control, MA and/or KvP adjustment based on patient size and exam type or iterative reconstruction. INDICATION: 86-year-old female, fever, abdominal pain. CORRELATION STUDY: None. FINDINGS: LOWER THORAX: Minimal basilar atelectasis. Small esophageal hernia. Scattered coronary artery and cardiac valvular calcification. LIVER: Mild fatty infiltration without focal lesion. GALLBLADDER: Absent. SPLEEN: Unremarkable. PANCREAS: Atrophic. ADRENAL GLANDS: Unremarkable. KIDNEYS: Mild left-sided hydroureter with thickening of the ureteric wall and mild stranding. Question of very punctate calcification of the distal left ureter. There is also mild left perinephric stranding. Right kidney collecting system is unremarkable. ABDOMINAL AORTA: Moderate wall calcification, nonaneurysmal. GASTROINTESTINAL TRACT: Stomach is decompressed. No small bowel obstruction. Moderate stool in the colon with colonic diverticulosis. No acute diverticulitis. URINARY BLADDER: Unremarkable. REPRODUCTIVE: Hysterectomy. OSSEOUS STRUCTURES: Metallic artifact from 3 pins in the proximal left femur. No acute bony abnormality. Likely nonacute L1 compression fracture with over 50% loss of height. OTHER: None. IMPRESSION: 1. Mild dilatation of the left ureter along with ureteric thickening. Very questionable punctate calcification in the low left ureter may be resulting in the obstruction. Slight engorgement of the left kidney along with perinephric stranding. Question of superimposed infection. 2. Diverticulosis without definite diverticulitis. Dictated by: Dictated on workstation # [id number]
[2022-08-05] MEDS ORDERED: cefTRIAXone 1 GM PRE-MIX 50 ML IV STA (14:05)
[2022-08-05 14:13] LABS: BILIRUBIN,URINE NEGATIVE (NEGATIVE); COLOR,URINE YELLOW; GLUCOSE, URINE (UA) 3+ (NEGATIVE); KETONES,URINE NEGATIVE (NEGATIVE); LEUKOCYTE ESTERASE ,URINE 2+ (NEGATIVE); NITRITE,URINE POSITIVE (NEGATIVE); PROTEIN,URINE 2+ (NEGATIVE)
[2022-08-05 14:16] LABS: BACTERIA,URINE LARGE /HPF; CLARITY,URINE CLOUDY; WBC,URINE TNTC /HPF
[2022-08-05] MEDS ORDERED: CEPH500T PO (14:17)
[2022-08-05] MEDS ORDERED: NS IV 1000 ML 1,000 ML IV STA (14:32)
[2022-08-05 16:50] VITALS: BP 97/60
== END 2022-08-05 16:55 | disposition home or self-care (01) ==
LOC: EDUNIT# 12:15 → ER FS 12:17
DX: N39.0 Urinary tract infection, site not specified (principal); N13.30 Unspecified hydronephrosis; Z20.822 Contact with and (suspected) exposure to COVID-19; Z28.310 Unvaccinated for COVID-19
CPT/HCPCS: 36415; 71046; 74177; 80053; 81000; 83605; 85025; 86141; 87040; 87077; 87088; 87186; 87636

== ENCOUNTER 2022-08-06 01:08 | Inpatient (IN) | payer MEDICARE ==
[2022-08-06] VITALS (21 sets, daily range): BP systolic 77–143; BP diastolic 40–66
[~2022-08-06] VITALS: Ht 162.6 cm; Wt 89.2 kg
[~2022-08-06 01:08] MED LIST changes: +CEPH500T PO
[2022-08-06] MEDS ORDERED: LACTATED RINGERS 1,000 ML IV ONE (01:30)
[2022-08-06] MEDS ORDERED: CEFEPIME INJECTION 1,000 MG in NS (IVPB) 50 ML IV ONE (01:30)
[2022-08-06] MEDS ORDERED: ONDANSETRON 4 MG/2 ML (SDV) Z0FRAN IVP ONE (01:30)
[2022-08-06 02:01] LABS: BASOPHILS % (AUTO) 0 % (0-10); EOSINOPHILS % (AUTO) 0 % (0-10); HEMATOCRIT 38 % (35-52); HEMOGLOBIN 12.3 g/dL (11.5-16.0); LYMPHOCYTES # (AUTO) 0.5 10^3/uL (1.0-4.0); LYMPHOCYTES % (AUTO) 8 % (12-44); MEAN CORPUSCULAR HEMOGLOBIN 30 pg (25-34); MEAN CORPUSCULAR HGB CONC 32 g/dL (32-36); MEAN CORPUSCULAR VOLUME 94 fL (80-99); MEAN PLATELET VOLUME 10.1 fL (9.0-12.2); MONOCYTES # (AUTO) 0.1 10^3/uL (0.0-1.0); MONOCYTES % (AUTO) 2 % (0-12); NEUTROPHILS # (AUTO) 5.4 10^3/uL (1.8-7.8); NEUTROPHILS % (AUTO) 89 % (42-75); PLATELET COUNT 173 10^3/uL (130-400); WHITE BLOOD COUNT 6.1 10^3/uL (4.3-11.0)
[2022-08-06 02:02] LABS: BILIRUBIN,URINE NEGATIVE (NEGATIVE); CLARITY,URINE CLOUDY; COLOR,URINE YELLOW; GLUCOSE, URINE (UA) 3+ (NEGATIVE); KETONES,URINE NEGATIVE (NEGATIVE); LEUKOCYTE ESTERASE ,URINE 2+ (NEGATIVE); NITRITE,URINE NEGATIVE (NEGATIVE); PROTEIN,URINE 2+ (NEGATIVE)
--- NOTE | 2022-08-06 02:06 | ED GI ---
General Chief Complaint: Abdominal/GI Problems Stated Complaint: LOWER LEFT ABD PAIN,NAUSEA Source of Information: Patient, Family History of Present Illness Date Seen by Provider: Aug 06, 2022 Time Seen by Provider: 01:20 Initial Comments PT ARRIVES VIA POV FROM HOME IN [place], NEEDS WHEELCHAIR ON ARRIVAL PT HAS BEEN HAVING LOWER ABDOMINAL PAIN AND FLANK PAIN SINCE SUNDAY EVENING AROUND 1999 PAIN IS WORSE ON LEFT SIDE. SHE HAS HAD NAUSEA, NO VOMITING. HAD A NORMAL BM EARLIER SHE HAS BEEN URINATING NORMALLY SHE STATES SHE HAS HAD SUBJECTIVE FEVER AND CHILLS--SHE HAS NOT CHECKED HER TEMP SHE HAS BODY ACHES AND FATIGUE SHE WENT TO [place] ER THIS AFTERNOON --08/05/22 SHE WAS DX WITH UTI AND KIDNEY STONE AND IT WAS RECOMMENDED THAT SHE BE ADMITTED, BUT PT DECLINED SHE PRESENTS NOW, FEELING WORSE, AND IS NOW WILLING TO BE ADMITTED. SHE HAS HAD MINIMAL INTAKE TODAY--A COUPLE OF NEIL CRACKERS AND PEANUT BUTTER AND A CUP OF COFFEE SHE HAS NOT TAKEN ANYTHING FOR PAIN OR FEVER. PT HAS HAD PRIOR CHOLECYSTECTOMY, APPENDECTOMY, HYSTERECTOMY/B.S.O. SHE DENIES PRIOR HISTORY OF KIDNEY STONES. SHE HAS HTN AND IS NON INSULIN DEPENDENT DIABETIC. PCP: DR. ADAMS Allergies and Home Medications Allergies Coded Allergies: No Known Drug Allergies (Unverified , 08/27/17) Patient Home Medication List Home Medication List Reviewed: Yes Allopurinol (Allopurinol) 300 Mg Tablet, 300 MG PO HS, (Reported) Entered as Reported by: LOGAN SILVEIRA on 08/27/171953 Aspirin (Aspir 81) 81 Mg Tablet.dr 81 MG PO HS, (Reported) Entered as Reported by: LOGAN SILVEIRA on 08/27/171953 Cephalexin (Cephalexin) 500 Mg Tablet, 500 MG PO QID Prescribed by: GUALBERTO HENDRICKS on 08/05/22 141 Gemfibrozil (Gemfibrozil) 600 Mg Tablet, 600 MG PO DAILY, (Reported) Entered as Reported by: LOGAN SILVEIRA on 08/27/171953 Glyburide (Glyburide) 1.25 Mg Tablet, 1.25 MG PO DAILY, (Reported) Entered as Reported by: LOGAN SILVEIRA on 08/27/171953 Hydrocodone Bit/Acetaminophen (Lortab 5 Mg Tablet) 1 Tab Tab, 1-2 TAB PO Q4H PRN for PAIN-MODERATE Prescribed by: LIBERTAD E LIPSCOMB on 09/06/17 1510 Losartan Potassium (Losartan Potassium) 25 Mg Tablet, 25 MG PO DAILY, (Reported) Entered as Reported by: LOGAN SILVEIRA on 08/27/171953 Multivit with Calcium,Iron,Min (Women's Daily Formula) 1 Each Tablet, 1 TAB PO DAILY, (Reported) Entered as Reported by: WHITNEY ALEXANDRA on 08/28/17 0950 [place] 3 Polyunsat Fatty Acids (Fish Oil 1,000 mg Capsule) 1,000 Mg Cap, 1,000 MG PO HS, (Reported) Entered as Reported by: CINDY KARIMI on 08/28/17 0434 Propylene Glycol/Peg 400 (Systane 0.3-0.4% Eye Drops) 15 Ml Drops, 1 DROP OU QID PRN for DRY EYES, (Reported) Entered as Reported by: WHITNEY ALEXANDRA on 08/28/17 0950 Timolol (Betimol) 5 Ml Drops, 1 DROP OU HS, (Reported) Entered as Reported by: WHITNEY ALEXANDRA on 08/28/17 0950 Review of Systems Review of Systems Constitutional: see HPI, chills, fever, malaise, weakness EENTM: No Symptoms Reported Respiratory: No Symptoms Reported Cardiovascular: No Symptoms Reported Gastrointestinal: See HPI, Abdominal Pain; Denies Constipated, Denies Diarrhea; Nausea, Poor Appetite, Poor Fluid Intake; Denies Vomiting Genitourinary: See HPI; Denies Burning; Flank Pain Musculoskeletal: see HPI, back pain Skin: no symptoms reported Psychiatric/Neurological: No Symptoms Reported Endocrine: No Symptoms Reported Hematologic/Lymphatic: No Symptoms Reported Past Vurchur-Lrrmto-Vjrcgf Hx Patient Social History Tobacco Use?: No Substance use?: No Alcohol Use?: No Immunizations Up To Date PED Vaccines UTD: No Seasonal Allergies Seasonal Allergies: Yes Past Medical History Surgery/Hospitalization HX: Pre-DM, HTN, high cholesterol Surgeries: Yes (SEE BELOW) Abdominal, Appendectomy, Ear Surgery, Gallbladder, Hysterectomy, Oophorectomy, Orthopedic Respiratory: No Currently Using CPAP: No Currently Using BIPAP: No Cardiac: Yes High Cholesterol, Hypertension Neurological: No Reproductive Disorders: Yes Female Reproductive Disorders: 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 ) Gastrointestinal: Yes Chronic Constipation Musculoskeletal: Yes (LEFT HIP FRACTURE 2018) Fractures, Gout Endocrine: Yes Diabetes, Non-Insulin dep HEENT: No Cataract, Glaucoma Hearing Impairment: Hard of Hearing Cancer: No Psychosocial: No Integumentary: No Blood Disorders: No Family Medical History FH: heart disease 19 MOTHER FH: stroke 19 FATHER Glaucoma 19 MOTHER Kidney disease 19 FATHER Myocardial infarction 19 FATHER Diabetes PAST SURGICAL HISTORY: -APPENDECTOMY -CHOLECYSTECTOMY -HYSTERECTOMY / BILATERAL SALPINGO-OOPHORECTOMY -LEFT HIP FRACTURE / ORIF -LEFT SHOULDER SURGERY Physical Exam Vital Signs Vital Signs - First Documented 08/06/22 08/06/22 01:21 01:30 Temp 38.1 Pulse 87 Resp 18 B/P (MAP) 114/35 (61) Pulse Ox 91 O2 Delivery Room Air O2 Flow Rate 2.00 Capillary Refill : Height/Weight/BMI Height: 5'4.00" Weight: 210lbs. 12.8oz. 95.228161so; 32.00 BMI Method:Estimated General Appearance: WD/WN, no apparent distress Neck: normal inspection Respiratory: normal breath sounds, no respiratory distress, no accessory muscle use Cardiovascular: regular rate, rhythm, no murmur Gastrointestinal: soft; No distended, No guarding, No rebound; tenderness (DIFFUSE LOWER ABDOMINAL TENDERNESS, AND BILATERAL FLANK TENDERNESS. ) Extremities: normal inspection, normal capillary refill Back: CVA tenderness (R), CVA tenderness (L) Neurologic/Psychiatric: sock boarder II-XII nml as tested, no motor/sensory deficits, alert, normal mood/affect, oriented x 3 Skin: normal color, warm/dry; No rash Focused Exam Sepsis Stage: Septic Shock Possible Source: Genitouriary Lactate Level 08/06/22 01:25: Lactic Acid Level 2.36*H 08/06/22 03:47: Lactic Acid Level 1.18 Time of Focused Exam: 02:25 Respiratory: Normal Breath Sounds, No Accessory Muscle Use, No Respiratory Distress Cardiovascular: Regular Rate, Rhythm, No Murmur Capillary Refill: Less Than 3 Seconds Skin: normal color, warm/dry Lactic Acid Level Laboratory Tests Test 08/06/22 01:25 08/06/22 03:47 Lactic Acid Level 2.36 MMOL/L (0.50-2.00) *H 1.18 MMOL/L (0.50-2.00) Within 3hrs of presentation: Admin fluids, Admin ABX, Blood cultures prior to ABX's, Focus exam, Lactate level, Vasopressin therapy Progress/Results/Core Measures Results/Orders Lab Results Laboratory Tests Test 08/06/22 01:25 08/06/22 01:45 08/06/22 03:47 Range/Units White Blood Count 6.1 4.3-11.0 10^3/uL Red Blood Count 4.08 3.80-5.11 10^6/uL Hemoglobin 12.3 11.5-16.0 g/dL Hematocrit 38 35-52 % Mean Corpuscular Volume 94 80-99 fL Mean Corpuscular Hemoglobin 30 25-34 pg Mean Corpuscular Hemoglobin Concent 32 32-36 g/dL Red Cell Distribution Width 13.8 10.0-14.5 % Platelet Count 173 130-400 10^3/uL Mean Platelet Volume 10.1 9.0-12.2 fL Immature Granulocyte % (Auto) 0 % Neutrophils (%) (Auto) 89 H 42-75 % Lymphocytes (%) (Auto) 8 L 12-44 % Monocytes (%) (Auto) 2 0-12 % Eosinophils (%) (Auto) 0 0-10 % Basophils (%) (Auto) 0 0-10 % Neutrophils # (Auto) 5.4 1.8-7.8 10^3/uL Lymphocytes # (Auto) 0.5 L 1.0-4.0 10^3/uL Monocytes # (Auto) 0.1 0.0-1.0 10^3/uL Eosinophils # (Auto) 0.0 0.0-0.3 10^3/uL Basophils # (Auto) 0.0 0.0-0.1 10^3/uL Immature Granulocyte # (Auto) 0.0 0.0-0.1 10^3/uL Neutrophils % (Manual) 88 % Lymphocytes % (Manual) 12 % Blood Morphology Comment NORMAL Erythrocyte Sedimentation Rate 42 H 0-30 MM/HR Prothrombin Time 14.9 H 12.2-14.7 SEC INR Comment 1.1 0.8-1.4 Activated Partial Thromboplast Time 38 H 24-35 SEC Sodium Level 140 135-145 MMOL/L Potassium Level 4.5 3.6-5.0 MMOL/L Chloride Level 106 98-107 MMOL/L Carbon Dioxide Level 21 21-32 MMOL/L Anion Gap 13 5-14 MMOL/L Blood Urea Nitrogen 36 H 7-18 MG/DL Creatinine 1.58 H 0.60-1.30 MG/DL Estimat Glomerular Filtration Rate 32 BUN/Creatinine Ratio 23 Glucose Level 122 H 70-105 MG/DL Lactic Acid Level 2.36 *H 1.18 0.50-2.00 MMOL/L Calcium Level 9.3 8.5-10.1 MG/DL Corrected Calcium 9.6 8.5-10.1 MG/DL Magnesium Level 2.2 1.6-2.4 MG/DL Total Bilirubin 0.4 0.1-1.0 MG/DL Aspartate Amino Transf (AST/SGOT) 14 5-34 U/L Alanine Aminotransferase (ALT/SGPT) 12 0-55 U/L Alkaline Phosphatase 121 40-136 U/L C-Reactive Protein High Sensitivity 19.05 H 0.00-0.50 MG/DL Total Protein 6.4 6.4-8.2 GM/DL Albumin 3.6 3.2-4.5 GM/DL Amylase Level 11 L 25-125 U/L Urine Color YELLOW Urine Clarity CLOUDY Urine pH 6.0 5-9 Urine Specific [place] 1.020 1.016-1.022 Urine Protein 2+ H NEGATIVE Urine Glucose (UA) 3+ H NEGATIVE Urine Ketones NEGATIVE NEGATIVE Urine Nitrite NEGATIVE NEGATIVE Urine Bilirubin NEGATIVE NEGATIVE Urine Urobilinogen 0.2 < = 1.0 MG/DL Urine Leukocyte Esterase 2+ H NEGATIVE Urine RBC (Auto) 2+ H NEGATIVE Urine RBC 2-5 H /HPF Urine WBC >100 H /HPF Urine Crystals NONE /LPF Urine Bacteria NEGATIVE /HPF Urine Casts NONE /LPF Urine Mucus NEGATIVE /LPF Urine Culture Indicated CULTURE PENDING My Orders Orders - KRISHNA FERRARA DO Ed Iv/Invasive Line Start (08/06/22 01:21) Monitor-Rhythm Ecg Trace Only (08/06/22 01:21) Amylase (08/06/22 01:21) Cbc With Automated Diff (08/06/22 01:21) Comprehensive Metabolic Panel (08/06/22 01:21) Hs C Reactive Protein (08/06/22 01:21) Ua Culture If Indicated (08/06/22 01:21) Erythrocyte Sedimentation Rate (08/06/22 01:21) Ed Iv/Invasive Line Start (08/06/22 01:21) Lactated Ringers (Lr 1000 Ml Iv Solution (08/06/22 01:30) Ondansetron Injection (Zofran Injectio (08/06/22 01:30) Blood Culture (08/06/22 01:21) Sputum Culture (08/06/22 01:21) Urine Culture (08/06/22 01:21) Protime With Inr (08/06/22 01:21) Partial Thromboplastin Time (08/06/22 01:21) Chest 1 View, Ap/Pa Only (08/06/22 01:21) Ed Iv/Invasive Line Start (08/06/22 01:21) Vital Signs Adult Sepsis Patie Q15M (08/06/22 01:21) O2 (08/06/22 01:21) Remove Rings In Anticipation O (08/06/22 01:21) Lactic Acid Analyzer (08/06/22 01:21) Cefepime Injection (Maxipime Injection) (08/06/22 01:30) Acetaminophen Tablet (Tylenol Tablet) (08/06/22 02:15) Manual Differential (08/06/22 01:25) Ed Iv/Invasive Line Start (08/06/22 02:30) Ns Iv 1000 Ml (Sodium Chloride 0.9%) (08/06/22 02:30) Ed Iv/Invasive Line Start (08/06/22 03:35) Ns Iv 1000 Ml (Sodium Chloride 0.9%) (08/06/22 03:45) Medications Given in ED Current Medications Medications Dose Ordered Sig/Aspen Route Start Time Stop Time Status Last Admin Dose Admin Acetaminophen 1,000 mg ONCE ONCE PO 08/06/22 02:15 08/06/22 02:16 DC 08/06/22 02:31 1,000 MG Cefepime HCl 1000 mg/Sodium Chloride 50 ml @ 100 mls/hr ONCE ONCE IV 08/06/22 01:30 08/06/22 01:59 DC 08/06/22 02:00 100 MLS/HR Lactated Ringer's 1,000 ml @ 0 mls/hr Q0M ONCE IV 08/06/22 01:30 08/06/22 01:31 DC 08/06/22 02:00 0 MLS/HR Ondansetron HCl 4 mg ONCE ONCE IVP 08/06/22 01:30 08/06/22 01:31 DC 08/06/22 02:00 4 MG Vital Signs/I&O 08/06/22 08/06/22 08/06/22 01:21 01:30 02:31 Temp 38.1 38.1 Pulse 87 Resp 18 B/P (MAP) 114/35 (61) Pulse Ox 91 99 O2 Delivery Room Air Nasal Cannula O2 Flow Rate 2.00 Progress Progress Note : Progress Note SEPSIS PROTOCOL INITIATED ON ARRIVAL GIVEN: -IV FLUIDS -ZOFRAN -CEFEPIME -FENTANYL FOR PAIN -TYLENOL FOR FEVER -LEVOPHED TEMP IS 100.6 ON ARRIVAL O2 SAT 90% ON ROOM AIR, UP TO MID 90'S ON O2 AT 2L/NC HR 87, BP 114/35 HR REMAINED STABLE IN THE 80'S BP DID DROP INTO UPPER 70'S, PT PLACED IN TRENDELENBERG AND ADDITIONAL FLUIDS ORDERED. BP STILL IN THE 80'S SYSTOLIC AFTER 3 LITERS OF FLUIDS, LEVOPHED INITIATED. REVIEWED PRIOR RECORDS--ADMIT FOR HIP FRACTURE IN 2018, AND ER VISIT ON 08/05/22. DISCUSSED TEST RESULTS, NEED FOR ADMIT, AND PT AGREES TO ADMIT. DISCUSSED CODE STATUS, PT STATES SHE WISHES TO BE DNR/DNI Diagnostic Imaging Comments CXR--NO ACUTE PROCESS, PENDING RADIOLOGIST REVIEW CT ABDOMEN/PELVIS DONE YESTERDAY AT [place] [facility]: FINDINGS: LOWER THORAX: Minimal basilar atelectasis. Small esophageal hernia. Scattered coronary artery and cardiac valvular calcification. LIVER: Mild fatty infiltration without focal lesion. GALLBLADDER: Absent. SPLEEN: Unremarkable. PANCREAS: Atrophic. ADRENAL GLANDS: Unremarkable. KIDNEYS: Mild left-sided hydroureter with thickening of the ureteric wall and mild stranding. Question of very punctate calcification of the distal left ureter. There is also mild left perinephric stranding. Right kidney collecting system is unremarkable. ABDOMINAL AORTA: Moderate wall calcification, nonaneurysmal. GASTROINTESTINAL TRACT: Stomach is decompressed. No small bowel obstruction. Moderate stool in the colon with colonic diverticulosis. No acute diverticulitis. URINARY BLADDER: Unremarkable. REPRODUCTIVE: Hysterectomy. OSSEOUS STRUCTURES: Metallic artifact from 3 pins in the proximal left femur. No acute bony abnormality. Likely nonacute L1 compression fracture with over 50% loss of height. OTHER: None. IMPRESSION: 1. Mild dilatation of the left ureter along with ureteric thickening. Very questionable punctate calcification in the low left ureter may be resulting in the obstruction. Slight engorgement of the left kidney along with perinephric stranding. Question of superimposed infection. 2. Diverticulosis without definite diverticulitis. Reviewed: Reviewed by Me Critical Care Note Critical Care Start Time: 02:30 Stop Time: 04:30 Total Time (minutes) 120 Progress SEE NURSING NOTES FOR DETAILS. Departure Communication (Admissions) 0227--SPOKE WITH DR. PAGAN, HOSPITALIST, ACCEPTS PT FOR ADMIT. 0420--REPORT TO E-ICU PHYSICIAN. Impression Primary Impression: Septic shock Additional Impressions: Pyelonephritis QUESTIONABLE LEFT URETERAL STONE. NIDDM HTN (hypertension) DEHYDRATION / ACUTE KIDNEY INJURY Disposition: ADMITTED INPATIENT Condition: Stable Admissions Decision to Admit Reason: Admit from ER (General) Decision to Admit/Date: Aug 06, 2022 Time/Decision to Admit Time: 02:30 Departure-Patient Inst. Referrals: KAYLA ADAMS DO (PCP/Family) Primary Care Physician KRISHNA FERRARA DO Aug 06, 2022 02:06
[2022-08-06 02:14] LABS: ALBUMIN 3.6 GM/DL (3.2-4.5); POTASSIUM 4.5 MMOL/L (3.6-5.0)
[2022-08-06 02:15] LABS: INR 1.1 (0.8-1.4); PROTHROMBIN TIME PATIENT 14.9 SEC (12.2-14.7)
[2022-08-06] MEDS ORDERED: ACETAMINOPHEN 500 MG TAB (TYLENOL) PO ONE (02:15)
[2022-08-06 02:16] LABS: CALCIUM 9.3 MG/DL (8.5-10.1)
[2022-08-06 02:16] LABS: BACTERIA,URINE NEGATIVE /HPF; WBC,URINE >100 /HPF
[2022-08-06 02:17] LABS: TOTAL PROTEIN 6.4 GM/DL (6.4-8.2)
[2022-08-06 02:18] LABS: BILIRUBIN,TOTAL 0.4 MG/DL (0.1-1.0)
[2022-08-06 02:20] LABS: CREATININE SERUM 1.58 MG/DL (0.60-1.30)
[2022-08-06] MEDS ORDERED: NS IV 1000 ML 1,000 ML IV SCH ×2 (02:30→03:45)
[2022-08-06 02:49] LABS: ERYTHROCYTE SEDIMENTATION RATE 42 MM/HR (0-30); LYMPHOCYTES % (MANUAL) 12 %; NEUTROPHILS % (MANUAL) 88 %; RBC MORPH NORMAL
[2022-08-06] MEDS: NOREPINEPHRINE 8 MG/250 ML 250 ML IV SCH (04:12)
[2022-08-06] MEDS ORDERED: NOREPINEPHRINE 8 MG/250 ML 250 ML IV ONE (04:12)
[2022-08-06] MEDS ORDERED: NS IV 500 ML 500 ML IV PRN ×2 (04:30)
[2022-08-06] MEDS: POTASSIUM CL 10MEQ/50ML IVPB 50 ML IV SCH (04:58)
[2022-08-06] MEDS: KCL 20 MEQ TAB (K-DUR) PO SCH (04:58)
[2022-08-06] MEDS: MAGNESIUM 1 GM/100 ML IVPB 100 ML IV SCH (05:40)
[2022-08-06] MEDS: inSUlin ASPART (NovoLOG) 1 UNIT/0.01 ML (CHARGE PER UNIT) SC SCH ×4 (06:07→20:01)
--- NOTE | 2022-08-06 07:37 | Diagnostic Imaging Report ---
INDICATION: Follow-up sepsis, dyspnea. COMPARISON: 08/05/2022. DISCUSSION: Single portable upright view of the chest was obtained. Stable heart size. Low lung volumes. Elevated right hemidiaphragm. No consolidation, pleural fluid, or pneumothorax. No osseous abnormality. IMPRESSION: 1. Negative chest. 2. Agree with preliminary Emergency Department report. Dictated by: Dictated on workstation # [id number]
--- NOTE | 2022-08-06 08:57 | Tele-ICU Consult ---
History of Present Illness History of Present Illness Date Seen by Provider: Aug 06, 2022 Time Seen by Provider: 08:53 History of Present Illness 86 yo F with urosepsis, has lower abd and flank pain on left U/A showed > 100 WBC's, started on IV Cefepime, Micro pending,, growing gnr's On levophed for SBP in 70's, Levophed but going down @ 0.02, BP is 116/55 CT abd and pelvis midl FELDMAN, scattered coronary calcifications, mild dilatation of left ureter last BP 116/55, received 3 l IVF First LA 2.36, now 1.18, WBC 6, Hb 12, plt 173 PMH No Hx of renal stones, HTN DM2 HLD Allergies and Home Medications Allergies Coded Allergies: No Known Drug Allergies (Unverified , 08/27/17) Home Medications Allopurinol 300 Mg Tablet, 300 MG PO HS, (Reported) Aspirin 81 Mg Tablet.dr, 81 MG PO HS, (Reported) Cephalexin 500 Mg Tablet, 500 MG PO QID Prescribed by: GUALBERTO HENDRICKS on 08/05/22 1417 Gemfibrozil 600 Mg Tablet, 600 MG PO DAILY, (Reported) Glyburide 1.25 Mg Tablet, 1.25 MG PO DAILY, (Reported) Hydrocodone Bit/Acetaminophen 1 Tab Tab, 1-2 TAB PO Q4H PRN for PAIN-MODERATE Prescribed by: LIBERTAD LIPSCOMB on 09/06/17 1510 Losartan Potassium 25 Mg Tablet, 25 MG PO DAILY, (Reported) Multivit with Calcium,Iron,Min 1 Each Tablet, 1 TAB PO DAILY, (Reported) [place] 3 Polyunsat Fatty Acids 1,000 Mg Cap, 1,000 MG PO HS, (Reported) Propylene Glycol/Peg 400 15 Ml Drops, 1 DROP OU QID PRN for DRY EYES, (Reported) Timolol 5 Ml Drops, 1 DROP OU HS, (Reported) 0.5% Past Medical/Social/Family Hx Patient Social History Tobacco Use?: No Smoking Status: Never a Smoker Use of E-Cig and/or Vaping dev: No Substance use?: No Alcohol Use?: No Pt stated abuse/neglect: No Immunizations Up To Date Influenza Vaccine Up-to-Date: Yes; Up-to-Date Tetanus Booster (TDap): Unknown Hepatitis A: No Hepatitis B: No TB Skin Test: Negative Date of Pneumonia Vaccine: May 31, 2017 Current Status status: No Advance Directives: Yes Advance Directive Location: Copy placed in chart Communicates: Verbally Primary Language: Beninese Preferred Spoken Language: Beninese Is interpretation needed?: No Implanted or Applied Medical D: None Family Medical History Family Hx: PAST SURGICAL HISTORY: -APPENDECTOMY -CHOLECYSTECTOMY -HYSTERECTOMY / BILATERAL SALPINGO-OOPHORECTOMY -LEFT HIP FRACTURE / ORIF -LEFT SHOULDER SURGERY Review of Systems Constitutional: see HPI EENTM: see HPI Respiratory: see HPI Cardiovascular: see HPI Gastrointestinal: see HPI Genitourinary: see HPI Musculoskeletal: see HPI Skin: see HPI Psychiatric/Neurological: See HPI Focused Exam Lactate Level 08/06/22 01:25: Lactic Acid Level 2.36*H 08/06/22 03:47: Lactic Acid Level 1.18 Height, Weight, BMI Height: 5'4.00" Weight: 210lbs. 12.8oz. 95.408382lk; 31.65 BMI Method:Estimated Time of Focused Exam: 02:25 Exam Exam Patient acknowledged, consented, and participated in this virtual visit which was conducted using real time audio/video Vital Signs Date Time Temp Pulse Resp B/P (MAP) Pulse Ox O2 Delivery O2 Flow Rate FiO2 08/06/22 07:46 36.4 08/06/22 07:00 106 08/06/22 06:27 Room Air 0.00 08/06/22 06:00 108 22 91/47 (62) 96 Room Air 08/06/22 05:00 101 22 119/65 (83) 95 Room Air 08/06/22 04:56 104 08/06/22 04:30 Nasal Cannula 3.00 08/06/22 04:30 36.8 08/06/22 04:30 100 38 133/63 (86) 96 Room Air 08/06/22 04:20 38.3 73 20 112/62 99 Nasal Cannula 2.00 08/06/22 04:12 79 89/63 08/06/22 02:31 38.1 08/06/22 01:30 99 Nasal Cannula 2.00 08/06/22 01:21 38.1 87 18 114/35 (61) 91 Room Air I & O 08/06/22 07:00 Intake Total 3150 ml Output Total 200 ml Balance 2950 ml Height & Weight Height: 5'4.00" Weight: 210lbs. 12.8oz. 95.315634aq; 31.65 BMI Method:Estimated General Appearance: No Apparent Distress Respiratory: Normal Breath Sounds, No Accessory Muscle Use, No Respiratory D istress Cardiovascular: Regular Rate, Rhythm, No Murmur Capillary Refill: Less Than 3 Seconds Gastrointestinal: non tender, soft (Flank pain is better); No distended, No guarding, No rebound; tenderness (DIFFUSE LOWER ABDOMINAL TENDERNESS, AND BILATERAL FLANK TENDERNESS. ) Extremity: No Pedal Edema Neurologic/Psychiatric: Alert, Oriented x3 Results Lab Laboratory Tests 08/06/22 01:25 Assessment/Plan Assessment/Plan septic shock from left pyelonephritis is resolving, will try to wean off levophed and avoid central line contnue abx Critical Care: Critically Ill Patient Time spent with patient (mins): 25 BITA RICHMOND MD Aug 06, 2022 08:57
[2022-08-06] MEDS ORDERED: POTASSIUM CHLORIDE INJ 20 MEQ in D5 LR IV SOLUTION 1,000 ML IV SCH (10:15)
--- NOTE | 2022-08-06 12:21 | Diagnostic Imaging Report ---
INDICATION: Central line placement. COMPARISON: Earlier today. DISCUSSION: A single portable upright view of the chest was obtained. New left subclavian central venous catheter with tip in the proximal SVC. Elevated right hemidiaphragm. Mild cardiomegaly is stable. No new consolidation, pleural fluid, or pneumothorax. No osseous abnormality. IMPRESSION: New left-sided central line with tip in the SVC. No pneumothorax. Dictated by: Dictated on workstation # [id number]
[2022-08-06] MEDS: LACTATED RINGERS 1,000 ML IV SCH (12:34)
[2022-08-06] MEDS: cefTRIAXone 2,000 MG in NS (IVPB) 50 ML IV SCH (12:34)
--- NOTE | 2022-08-06 12:52 | CONSULTATION REPORT ---
DATE OF SERVICE: 08/06/[address] Darrin Thurman. ADMITTING PHYSICIAN: Dr. Milligan. HISTORY OF PRESENT ILLNESS: The patient is an 86-year-old female who presented to [place] emergency department with fevers and chills as well as flank pain, which started approximately 2 days ago, which had also worsened. She also had reported body aches with the fevers. The patient did undergo CT scan, which did show hydroureter as well as inflammation of the ureter, likely consistent with cystitis and ureteritis. She does not report having previous urinary tract infections in the past. She also does not report any change in urine and states that she has been drinking normal amounts of water. PAST MEDICAL HISTORY: Degenerative joint disease, hypertension, hypercholesterolemia, diabetes. PAST SURGICAL HISTORY: Total hysterectomy, cholecystectomy, bilateral ear surgery, appendectomy, left shoulder surgery, right total knee arthroplasty. ALLERGIES: NO KNOWN DRUG ALLERGIES. MEDICATIONS: Allopurinol 300 mg daily, aspirin 81 mg daily, cephalexin 500 mg q.i.d., gemfibrozil 600 mg daily, glyburide 1.25 mg daily, hydrocodone 5 mg p.r.n., losartan 25 mg daily, timolol eye drops daily. SOCIAL HISTORY: Negative smoke, negative alcohol. FAMILY HISTORY: Noncontributory. VITAL SIGNS: Temperature 36.4, blood pressure 126/64, pulse 64, respirations 16, pulse ox 94% on room air. REVIEW OF SYSTEMS: Well-nourished female, currently in no acute distress. She is not experiencing shortness of breath or difficulty breathing. No chest pain, palpitations, diaphoresis. No nausea or vomiting. No diarrhea or constipation. She does states fevers for the past 2 days as well as body aches. No recent inadvertent weight loss. All other review of systems negative. PHYSICAL EXAMINATION: CHEST: Clear. Good breath sounds bilaterally. HEART: Regular. No murmurs. EXTREMITIES: No lower extremity edema. Negative Homans sign. HEENT: No scleral icterus. No cervical lymphadenopathy. ABDOMEN: Soft, nontender, nondistended. SKIN: Warm, dry. LABORATORY DATA: WBC 6.1, hemoglobin 12.3, hematocrit 38, platelets 173, BUN 36, creatinine 1.58. 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 The patient was admitted by internal medicine and was given IV fluid bolus. However, she continued to be hypotensive and require IV vasopressors as well as multiple IV access for fluids as well as antibiotics and we will proceed with placement of a central venous catheter. Job ID: [id number] DocumentID: [id number] Dictated Date: 08/06/2022 12:05:51 Technical Account Executive Date: 08/06/2022 12:51:00 Dictated By: JOHN GONZALEZ MD
[2022-08-06] MEDS ORDERED: MILK OF MAGNESIA 400 MG/5 ML 30 ML UDC PO PRN (16:30)
--- NOTE | 2022-08-06 16:36 | OPERATIVE REPORT ---
DATE OF SERVICE: 08/06/2022 ATTENDING PRIMARY CARE PHYSICIAN: Darrin Thurman DO. ADMITTING PHYSICIAN: Dr. Milligan. PREPROCEDURE DIAGNOSES: Hypotension and urosepsis. POSTPROCEDURE DIAGNOSES: Hypotension and urosepsis. PROCEDURE: Placement left subclavian central venous catheter. SURGEON: John Gonzalez MD ANESTHESIA: Local. ESTIMATED BLOOD LOSS: Minimal. DISPOSITION: The patient tolerated the procedure well. INDICATIONS: The patient is an 86-year-old male who presents to [place] emergency department with a 2-day history of fevers and chills as well as left flank pain. She was evaluated and a CT scan was performed, which showed dilatation of the left ureter as well as wall thickening consistent with a cystoureteritis. She is requiring vasopressors and will also require multiple IV infusion therapy and will require a central venous catheter. Chest and neck were prepped and draped in standard surgical fashion. 1% lidocaine was then used to anesthetize the left subclavian region. The left subclavian vein was then cannulated with drawing of venous blood. The guidewire was then inserted without any resistance. The cannulating needle removed and a skin incision made using 11 blade. A tract was then created using a venous dilator and through this opening, a triple lumen central venous catheter was placed over the guidewire using the Seldinger technique. Guidewire was then removed and all 3 ports sneha venous blood and saline pushed in without any resistance. The catheter was then sutured to the skin using a 2-0 silk suture. Catheter was then cleaned and covered with Op-Site. The patient tolerated the procedure well. We will get a post-procedure chest x-ray. Job ID: [id number] DocumentID: [id number] Dictated Date: 08/06/2022 12:08:41 Blending Machine Feeder Date: 08/06/2022 16:34:00 Dictated By: JOHN GONZALEZ MD
--- NOTE | 2022-08-06 16:53 | History & Physical-Hospitalist ---
History of Present Illness HPI/Chief Complaint Joi Duran is an 86 year old female with PMH HTN, T2DM, HLD, obesity, who presented with chills. She had been seen in the [place] [facility] ER early yesterday and was recommended to be admitted but she went home instead. She worsened at home and returned. She was having rigors. She reports hurting everywhere. She has been having abdominal and back pain,. She reports nausea, but no vomiting. She denies chest pain. She has been a bit short of breath. She denies dysuria, urinary frequency, and urgency. She has not had much of an appetite. She was prescribed antibiotics but had not started taking them yet. Source: patient Exam Limitations: no limitations Date Seen 08/06/22 Time Seen by a Provider: 11:05 Attending Physician Darrin Thurman DO PCP Admitting Physician: Jess Pagan MD Attending Physician: Jess Pagan MD Referring Physician Date of Admission Aug 06, 2022 at 03:47 Home Medications & Allergies Home Medications Reviewed patient Home Medication Reconciliation performed by pharmacy medication reconciliations geophysical data technician and/or nursing. Patients Allergies have been reviewed. Allergies Allergies Coded Allergies No Known Drug Allergies (Unverified08/27/17) Past Qjipmvf-Sdduau-Dxbauz Hx Patient Social History Tobacco Use?: No Smoking Status: Never a Smoker Use of E-Cig and/or Vaping dev: No Substance use?: No Alcohol Use?: No Pt feels they are or have been: No Immunizations Up To Date Tetanus Booster (TDap): Unknown Hepatitis A: No Hepatitis B: No PED Vaccines UTD: No Date of Pneumonia Vaccine: May 31, 2017 Seasonal Allergies Seasonal Allergies: Yes Current Status status: No Advance Directives: Yes Advance Directive Location: Copy placed in chart Communicates: Verbally Primary Language: Iranian Preferred Spoken Language: Iranian Is interpretation needed?: No Implanted or Applied Medical D: None Past Medical History Surgeries: Abdominal, Appendectomy, Ear Surgery, Gallbladder, Hysterectomy, Oophorectomy, Orthopedic Currently Using CPAP: No Currently Using BIPAP: No High Cholesterol, Hypertension PERSONNEL TECHNICIAN History: Hysterectomy, Menopausal Chronic Constipation Fractures, Gout Diabetes, Non-Insulin dep Cataract, Glaucoma Hearing Impairment: Hard of Hearing Blood Disorders: No Family Medical History FH: heart disease 19 MOTHER FH: stroke 19 FATHER Glaucoma 19 MOTHER Kidney disease 19 FATHER Myocardial infarction 19 FATHER Diabetes PAST SURGICAL HISTORY: -APPENDECTOMY -CHOLECYSTECTOMY -HYSTERECTOMY / BILATERAL SALPINGO-OOPHORECTOMY -LEFT HIP FRACTURE / ORIF -LEFT SHOULDER SURGERY Review of Systems Constitutional: chills, fever, malaise, weakness EENTM: no symptoms reported Respiratory: short of breath Cardiovascular: no symptoms reported Gastrointestinal: abdominal pain, nausea Genitourinary: no symptoms reported Physical Exam Physical Exam Vital Signs Vital Signs - First Documented 08/06/22 08/06/22 01:21 01:30 Temp 38.1 Pulse 87 Resp 18 B/P (MAP) 114/35 (61) Pulse Ox 91 O2 Delivery Room Air O2 Flow Rate 2.00 Capillary Refill : Less Than 3 Seconds Height, Weight, BMI Height: 5'4.00" Weight: 210lbs. 12.8oz. 95.359004bc; 31.65 BMI Method:Estimated General Appearance: No Apparent Distress, Obese HEENT: PERRL/EOMI, Pharynx Normal Neck: Normal Inspection, Supple Respiratory: Lungs Clear, No Respiratory Distress Cardiovascular: Regular Rate, Rhythm, No Edema, Systolic Murmur Gastrointestinal: Normal Bowel Sounds, Soft, Tenderness (LLQ) Back: Normal Inspection, No CVA Tenderness Extremity: Normal Inspection, No Pedal Edema Neurologic/Psychiatric: Alert, No Motor/Sensory Deficits Skin: Normal Color, Warm/Dry Results Results/Procedures Labs Laboratory Tests 08/06/22 01:25 Patient resulted labs reviewed. Imaging: Reviewed Imaging Report Assessment/Plan Admission Diagnosis Septic shock Admission Status: Inpatient Order (span 2 midnights) Reason for Inpatient Admission: Pyelonephritis Assessment and Plan Septic shock Pyelonephritis Gram negative bacteremia Lactic acidosis Acute kidney injury CT with pyelonephritis, possible punctate ureteral stone, mild ureteral dilatation UA consistent with UTI Urine culture with gram negative zoila Blood cultures with gram negative zoila Pressors Central line to be placed by Dr. Murcia IV fluids Rocephin HTN Hold home BP meds T2DM Sliding scale insulin HLD Obesity DVT prophylaxis: Lovenox Critical Care Critically Ill Patient Diagnosis/Problems Diagnosis/Problems (1) Septic shock Status: Acute (2) Pyelonephritis Status: Acute (3) Gram-negative bacteremia Status: Acute (4) Lactic acidosis Status: Acute (5) PHILLIP (acute kidney injury) Status: Acute (6) Hydroureter on left Status: Acute JESS PAGAN MD Aug 06, 2022 16:53
[2022-08-06] MEDS: ACETAMINOPHEN 325 MG TABLET PO PRN (16:58)
[2022-08-06] MEDS ORDERED: CALCIUM CARBONATE 500 MG (TUMS) TAB.CHEW PO PRN (17:15)
[2022-08-06] MEDS ORDERED: LACTULOSE SYRUP 10GM/15ML (ENULOSE) 30ML UDC PO PRN (17:15)
[2022-08-06] MEDS ORDERED: ONDANSETRON 4 MG/2 ML (SDV) Z0FRAN IV PRN (17:15)
[2022-08-06] MEDS ORDERED: ONDANSETRON 4 MG (ZOFRAN) ORAL DISSOLVE TAB PO PRN (17:15)
[2022-08-06] MEDS ORDERED: MELATONIN 3 MG TABLET PO PRN (17:15)
[2022-08-06] MEDS ORDERED: BISACODYL 10 MG SUPP (DULCOLAX) PR PRN (17:15)
[2022-08-06] MEDS ORDERED: ANTACID SUSP 30 ML UDC (MYLANTA) PO PRN (17:15)
[2022-08-06] MEDS ORDERED: polyethylene glycoL POWDER 17 GM (MIRALAX) PACK PO PRN (17:15)
[2022-08-06] MEDS: DOCUSATE SODIUM 100 MG (COLACE) CAP PO SCH (20:04)
[2022-08-06] MEDS: SENNOSIDES 8.6 MG (SENOKOT) TAB PO SCH (20:05)
[2022-08-06] MEDS ORDERED: ENOXAPARIN INJECTION 30 MG/0.3 ML SYR SC SCH (21:00)
[2022-08-07] VITALS (9 sets, daily range): BP systolic 100–136; BP diastolic 43–65
[2022-08-07] MEDS: ACETAMINOPHEN 325 MG TABLET PO PRN ×3 (00:33→21:02)
[2022-08-07] MEDS: LACTATED RINGERS 1,000 ML IV SCH (00:36)
[2022-08-07 03:47] LABS: BASOPHILS % (AUTO) 0 % (0-10); EOSINOPHILS # (AUTO) 0.1 10^3/uL (0.0-0.3); EOSINOPHILS % (AUTO) 1 % (0-10); HEMATOCRIT 32 % (35-52); HEMOGLOBIN 10.2 g/dL (11.5-16.0); LYMPHOCYTES # (AUTO) 0.8 10^3/uL (1.0-4.0); LYMPHOCYTES % (AUTO) 5 % (12-44); MEAN CORPUSCULAR HEMOGLOBIN 30 pg (25-34); MEAN CORPUSCULAR HGB CONC 32 g/dL (32-36); MEAN CORPUSCULAR VOLUME 94 fL (80-99); MONOCYTES # (AUTO) 1.2 10^3/uL (0.0-1.0); MONOCYTES % (AUTO) 8 % (0-12); NEUTROPHILS # (AUTO) 12.3 10^3/uL (1.8-7.8); NEUTROPHILS % (AUTO) 84 % (42-75); PLATELET COUNT 150 10^3/uL (130-400); WHITE BLOOD COUNT 14.6 10^3/uL (4.3-11.0)
[2022-08-07 04:09] LABS: ALBUMIN 2.7 GM/DL (3.2-4.5); BILIRUBIN,TOTAL 0.2 MG/DL (0.1-1.0); CALCIUM 8.4 MG/DL (8.5-10.1); CREATININE SERUM 1.27 MG/DL (0.60-1.30); MAGNESIUM 2.2 MG/DL (1.6-2.4); PHOSPHORUS 2.6 MG/DL (2.3-4.7); TOTAL PROTEIN 5.1 GM/DL (6.4-8.2)
[2022-08-07] MEDS: MAGNESIUM 1 GM/100 ML IVPB 100 ML IV SCH (08:27)
[2022-08-07] MEDS: POTASSIUM CL 10MEQ/50ML IVPB 50 ML IV SCH (08:27)
[2022-08-07] MEDS: KCL 20 MEQ TAB (K-DUR) PO SCH (08:27)
[2022-08-07] MEDS: NOREPINEPHRINE 8 MG/250 ML 250 ML IV SCH ×2 (08:27→12:43)
[2022-08-07] MEDS: inSUlin ASPART (NovoLOG) 1 UNIT/0.01 ML (CHARGE PER UNIT) SC SCH ×4 (08:28→20:40)
--- NOTE | 2022-08-07 08:45 | Diagnostic Imaging Report ---
INDICATION: Sepsis. Comparison is made with prior exam of 08/06/2022/ FINDINGS: There is cardiomegaly. There is some mild venous congestion. No pleural effusion or pneumothorax. Mediastinum is unremarkable. A left subclavian central venous catheter is in the superior vena cava. IMPRESSION: Cardiomegaly and mild central pulmonary venous congestion. Dictated by: Dictated on workstation # [id number]
--- NOTE | 2022-08-07 08:47 | Progress Note - Hospitalist ---
Subjective HPI/CC On Admission Date Seen by Provider: Aug 07, 2022 Joi Duran is an 86 year old female with PMH HTN, T2DM, HLD, obesity, who presented with chills. She had been seen in the [place] ER early yesterday and was recommended to be admitted but she went home instead. She worsened at home and returned. She was having rigors. She reports hurting everywhere. She has been having abdominal and back pain,. She reports nausea, but no vomiting. She denies chest pain. She has been a bit short of breath. She denies dysuria, urinary frequency, and urgency. She has not had much of an appetite. She was prescribed antibiotics but had not started taking them yet. Subjective/Events-last exam Pt reports feeling much better. No complaints. Would like to advance diet as she doesn't like the clear diet options. Focused Exam Lactate Level 08/06/22 01:25: Lactic Acid Level 2.36*H 08/06/22 03:47: Lactic Acid Level 1.18 Time of Focused Exam: 02:25 Objective Exam Vital Signs Vital Signs Date Time Temp Pulse Resp B/P (MAP) Pulse Ox O2 Delivery O2 Flow Rate FiO2 08/07/22 07:56 Nasal Cannula 3.00 08/07/22 07:32 37.0 08/07/22 06:00 79 120/57 (88) 98 08/06/22 07:00 16 Capillary Refill : Less Than 3 Seconds General Appearance: No Apparent Distress, Chronically ill Respiratory: Lungs Clear, No Respiratory Distress Cardiovascular: Regular Rate, Rhythm, No Murmur Neurologic/Psychiatric: Alert, Oriented x3 Results/Procedures Lab Laboratory Tests 08/07/22 03:36 Patient resulted labs reviewed. Imaging: Reviewed Imaging Report Assessment/Plan Assessment and Plan Assess & Plan/Chief Complaint Septic shock Pyelonephritis Gram negative bacteremia Lactic acidosis Acute kidney injury CT with pyelonephritis, possible punctate ureteral stone, mild ureteral dilatation UA consistent with UTI Urine culture with gram negative zoila Blood cultures with gram negative zoila Pressors on hold since 6am IV fluids Rocephin Leukocytosis up today but clinically improving so will trend Creatinine improved PT/OT HTN Hold home BP meds T2DM Sliding scale insulin HLD Obesity DVT prophylaxis: Lovenox Critical Care Critically Ill Patient BRITTNEY FULLER MD Aug 07, 2022 08:47
--- NOTE | 2022-08-07 09:48 | Occupational Therapy Eval ---
OT Evaluation-General/PLF Medical Diagnosis Admission Date Aug 06, 2022 at 03:47 Medical Diagnosis: sepsis Onset Date: Aug 06, 2022 Therapy Diagnosis Therapy Diagnosis: weakness Height/Weight Height (Feet): 5 Height (Inches): 4.00 Weight (Pounds): 210 Weight (Ounces): 12.8 Precautions Precautions/Isolations: Standard Precautions Weight Bear Status Weight Bearing Restriction: Full Weight Bearing Referral Referral Reason: Activity Tolerance, Self Care, Evaluation/Treatment Medical History Pertinent Medical History: Arthritis, DM, HTN Social History Home: Single Level Current Living Status: Alone ADL-Prior Level of Function SCALE: Activities may be completed with or without assistive devices. 4-Vwgazxousz-yzcmcgn completes the activity by him/herself with no assistance from a helper. 5-Set-up or Clean-up Assistance-helper sets up or cleans up; patient completes activity. [place] assists only prior to or following the activity. 4-Supervision or Touching Assistance-helper provides verbal cues and/or touching/steadying and/or contact guard assistance as patient completes act ivity. Assistance may be provided throughout the activity or intermittently. 3-Partial/Moderate Assistance-helper does LESS THAN HALF the effort. [place] lifts, holds or supports trunk or limbs, but provides less than half the effort. 2-Substantial/Maximal Assistance-helper does MORE THAN HALF the effort. [place] lifts or holds trunk or limbs and provides more than half the effort. 6-Azbbaoapa-tngdyc does ALL the effort. Patient does none of the effort to complete the activity. Or, the assistance of 2 or more helpers is required for the patient to complete the activity. If activity was not attempted, code reason: 7-Patient Refused. 9-Not Applicable-not attempted and the patient did not perform the activity before the current illness, exacerbation or injury. 10-Not Attempted due to Environmental Limitations-(lack of equipment, weather restraints, etc.). 88-Not Attempted due to Medical Conditions or Safety Concerns. Self Care: Independent Functional Cognition: Independent Drive Self: Yes OT Current Status Subjective Prefers to be called DEEPALI Mental Status/Objective Patient Orientation: Person, Place, Time, Situation Attachments: Acosta Catheter, IV, Oxygen (removed by RN), SCD's, Telemetry Current Glasses/Contacts: Yes Upper Extremity ROM BUE ROM WFLS, -4/5 ADL-Treatment Eating (QC): 6 Oral Hygiene (QC): 5 (d/t environment limitation and lines, set up is provided) Shower/Bathe Self (QC): 88 Upper Body Dressing (QC): 4 Lower Body Dressing (QC): 4 On/Off Footwear (QC): 5 Toileting Hygiene (QC): 4 Other Treatments Problem solving and safety assessment Education OT Patient Education: Energy conservation, Modified ADL techniques, Progress toward Goal/Update tx plan, Purpose of tx/functional activities, Reviewed precautions, Rehab process, Safety issues, Transfer techniques, Use of adapted equipment (has 2 4ww and a cane at home) Teaching Recipient: Patient Teaching Methods: Demonstration Response to Teaching: Verbalize Understanding, Return Demonstration OT [facility] Goals Crtts Goals Eating (QC): 6 Oral Hygiene (QC): 6 Toileting Hygiene (QC): 6 Shower/Bathe Self (QC): 6 Upper Body Dressing (QC): 6 Lower Body Dressing (QC): 6 On/Off Footwear (QC): 6 1=Demonstrate adherence to instructed precautions during ADL tasks. 2=Patient will verbalize/demonstrate understanding of assistive devices/modifications for ADL. 3=Patient will improve strength/tolerance for activity to enable patient to perform ADL's. OT Education/Plan Problem List/Assessment Assessment: Decreased Activ Tolerance, Impaired Self-Care Skills Discharge Recommendations Plan/Recommendations: Continue POC Treatment Plan/Plan of Care Treatment,Training & Education: Yes Patient would benefit from OT for education, treatment and training to promote independence in ADL's, mobility, safety and/or upper extremity function for ADL's. Plan of Care: ADL Retraining, Group Exercise/Act as Ind, UE Funct Exercise/Act Treatment Duration: Aug 12, 2022 Frequency: 3 times per week (3-5) Estimated Hrs Per Day: .25 hour per day Time Start Time: 09:30 Stop Time: 09:40 DATE: Aug 07, 2022 Total Time Billed (hr/min): 10 Billed Treatment Time EVM 10 min RAFIA WYLIE OT Aug 07, 2022 09:48
[2022-08-07] MEDS ORDERED: EZET10TA49 PO (10:00)
[2022-08-07] MEDS ORDERED: OMEG100032 PO (10:00)
[2022-08-07] MEDS ORDERED: VIT1CAPS44 PO (10:00)
[2022-08-07] MEDS ORDERED: ASPI-1238 PO (10:00)
[2022-08-07] MEDS ORDERED: [UNRECOGNIZED DRUG - OTHER] PO (10:00)
[2022-08-07] MEDS ORDERED: TIMO5DRO5 OU (10:00)
[2022-08-07] MEDS ORDERED: CHOL-34 PO (10:00)
[2022-08-07] MEDS ORDERED: MULT-1054 PO (10:00)
[2022-08-07] MEDS ORDERED: CEPH500C PO (10:00)
[2022-08-07] MEDS ORDERED: DAPA10TA PO (10:00)
--- NOTE | 2022-08-07 10:05 | Physical Therapy Evaluation ---
PT Evaluation-General Medical Diagnosis Admission Date Aug 06, 2022 at 03:47 Medical Diagnosis: sepsis Onset Date: Aug 06, 2022 Therapy Diagnosis Therapy Diagnosis: debility Height/Weight Height (Feet): 5 Height (Inches): 4.00 Weight (Pounds): 210 Weight (Ounces): 12.8 Precautions Precautions/Isolations: Standard Precautions Referral Physician: Bryan Reason for Referral: Evaluation/Treatment Medical History Pertinent Medical History: Arthritis, DM, HTN Current History ER secondary to abdominal pain Reviewed History: Yes Social History Home: Single Level Current Living Status: Alone Prior Prior Level of Function SCALE: Activities may be completed with or without assistive devices. 1-Reiafznbon-hoayqin completes the activity by him/herself with no assistance from a helper. 5-Set-up or Clean-up Assistance-helper sets up or cleans up; patient completes activity. [place] assists only prior to or following the activity. 4-Supervision or Touching Assistance-helper provides verbal cues and/or touching/steadying and/or contact guard assistance as patient completes activity. Assistance may be provided throughout the activity or intermittently. 3-Partial/Moderate Assistance-helper does LESS THAN HALF the effort. [place] lifts, holds or supports trunk or limbs, but provides less than half the effort. 2-Substantial/Maximal Assistance-helper does MORE THAN HALF the effort. [place] lifts or holds trunk or limbs and provides more than half the effort. 9-Ruytbizan-orxtyb does ALL the effort. Patient does none of the effort to complete the activity. Or, the assistance of 2 or more helpers is required for the patient to complete the activity. If activity was not attempted, code reason: 7-Patient Refused. 9-Not Applicable-not attempted and the patient did not perform the activity before the current illness, exacerbation or injury. 10-Not Attempted due to Environmental Limitations-(lack of equipment, weather restraints, etc.). 88-Not Attempted due to Medical Conditions or Safety Concerns. Bed Mobility: 6 Transfers (B,C,W/C): 6 Gait: 6 Prior Devices Use: Walker (4WW) PT Evaluation-Current Subjective Patient agrees to PT. She reports she hopes to go home soon. Objective Patient Orientation: Normal For Age Attachments: IV ROM/Strength ROM Lower Extremities bilateral LE WFL Strength Lower Extremities 4/5 grossly bilateral LE all planes Integumentary/Posture Bowel Incontinence: No Posture WFL Neuromuscular (Tone, Coordination, Reflexes) grossly intact Sensory Vision: Functional Hearing: Functional Transfers Lying to Sitting/Side of Bed(Q: 6 Sit to Stand (QC): 5 Chair/Kpf-mk-Tsjie Xfer(QC): 5 Gait Mode of Locomotion: Walk Anticipated Mode of Locomotion: Walk Walk 10 feet (QC): 4 Walk 50 ft with 2 Turns(QC): 4 Walk 150 ft (QC): 4 Distance: 200' Gait Assistive Device: FWW Comments/Gait Description safe and functional with no deviation Balance Sitting Static: Normal Sitting Dynamic: Normal Standing Static: Normal Standing Dynamic: Normal Assessment/Needs Patient will be seen short term by skilled PT to address functional strength and mobility to improve current LOF to safely return to home at maximum LOF. Rehab Potential: Fair PT Closet Builder Goals Long-Term Goals PT Long-Term Goals Time Frame: Aug 19, 2022 Roll Left & Right (QC): 6 Sit to Lying (QC): 6 Lying-Sitting on Side/Bed(QC): 6 Sit to Stand (QC): 6 Chair/Azh-po-Hhtqp Xfer(QC): 6 Toilet Transfer (QC): 6 Walk 10 feet (QC): 6 Walk 50ft with 2 Turns (QC): 6 Walk 150 ft (QC): 6 PT Plan Treatment/Plan Treatment Plan: Continue Plan of Care Treatment Plan: Bed Mobility, Education, Functional Activity Jose David, Functional Strength, Gait, Safety, Therapeutic Exercise, Transfers Treatment Duration: Aug 19, 2022 Frequency: 6 times per week Estimated Hrs Per Day: .25 hour per day Patient and/or Family Agrees t: Yes Time Time In: 930 Time Out: 940 DATE: Aug 07, 2022 Total Billed Treatment Time: 10 Total Billed Treatment 1 visit EVModC 10 min ANASTASIA VINCENT PT Aug 07, 2022 10:05
[2022-08-07] MEDS: SENNOSIDES 8.6 MG (SENOKOT) TAB PO SCH ×2 (10:47→20:30)
[2022-08-07] MEDS: DOCUSATE SODIUM 100 MG (COLACE) CAP PO SCH ×2 (10:47→20:30)
--- NOTE | 2022-08-07 12:22 | Tele-ICU Progress Note ---
Subjective Date Seen by a Provider: Aug 07, 2022 Time Seen by a Provider: 12:22 Subjective/Events-last exam (Tele-ICU Physician , Progress Note ) Service provided via interactive audio and video telecommunications E-CARE system to a patient admitted to ICU bed in [facility]. Patient is seen today due to persistent need of ICU care Available chart/ vitals / labs / Images reviewed Video assessment done using teleICU camera, rest of exam as per RN Discussed with RN Events overnight : Afebrile hemodynamically stable Respiratory - 2l I/O = + Drips: ns Pressors- no Hospital course: (08/06) 86/F admitted for sepsis UTI/pyelonephritis, A/P Septic shock - resolved , off pressors - CPM Pyelonephritis. + GNB bacteremia -CT with pyelonephritis, possible punctate ureteral stone, mild ureteral dilatation -Rocephin PHILLIP - improved Lines : left subclavian central venous catheter.08/06 , (Central Line Necessity Reviewed) Acosta: + OG: Nutrition: po Analgesia: Anxiety/ delirium VTE Prophylaxis: gem Stress Ulcer Prophylaxis: na Plans in collaboration with bedside consultants and IM MDs. Discussed with RN to reach out if any questions or concerns Case and care daily discussed on multidisciplinary rounds ( RN, PharmD, Ferry Operator , Respiratory Therapy, transfer worker ) A total of 20 minutes of critical care time was devoted to this patient today, required to treat and/or prevent further deterioration of critical care condition ( as above ) . I am remotely monitoring this patient from another state. I am unable to do the bedside exam, and history/physical and pertinent information is taken from other notes in the computer and bedside staff. Sepsis Event Evaluation Height, Weight, BMI Height: 5'4.00" Weight: 210lbs. 12.8oz. 95.845155vv; 31.65 BMI Method:Estimated Focused Exam Lactate Level 08/06/22 01:25: Lactic Acid Level 2.36*H 08/06/22 03:47: Lactic Acid Level 1.18 Time of Focused Exam: 02:25 Exam Exam Patient acknowledged, consented, and participated in this virtual visit which was conducted using real time audio/video Vital Signs Date Time Temp Pulse Resp B/P (MAP) Pulse Ox O2 Delivery O2 Flow Rate FiO2 08/07/22 09:00 78 114/52 (72) 96 Nasal Cannula 0.50 08/07/22 08:30 Nasal Cannula 0.50 08/07/22 08:00 78 113/69 (84) 99 Nasal Cannula 3.00 08/07/22 07:56 Nasal Cannula 3.00 08/07/22 07:32 37.0 08/07/22 07:00 77 117/65 (82) 99 Nasal Cannula 3.00 08/07/22 06:54 73 08/07/22 06:00 79 120/57 (88) 98 Nasal Cannula 3.00 08/07/22 05:00 76 113/45 (72) 96 Nasal Cannula 3.00 08/07/22 04:00 Nasal Cannula 2.00 08/07/22 04:00 73 101/44 (66) 94 Nasal Cannula 3.00 08/07/22 03:00 78 103/43 (65) 95 Nasal Cannula 3.00 08/07/22 02:00 80 110/53 (71) 98 Nasal Cannula 3.00 08/07/22 01:00 80 08/07/22 01:00 83 120/51 (74) 95 Nasal Cannula 3.00 08/07/22 00:00 87 110/64 (79) 96 Nasal Cannula 3.00 08/07/22 00:00 37.6 08/06/22 23:59 Nasal Cannula 2.00 08/06/22 23:00 80 128/55 (79) 96 Nasal Cannula 3.00 08/06/22 22:00 76 120/60 (80) 96 Nasal Cannula 3.00 08/06/22 21:15 75 102/51 (68) 96 Nasal Cannula 3.00 08/06/22 20:30 75 94/48 (63) 97 Nasal Cannula 3.00 08/06/22 20:00 37.4 08/06/22 20:00 77 77/40 (52) 95 Nasal Cannula 3.00 08/06/22 20:00 Nasal Cannula 2.00 08/06/22 19:00 80 08/06/22 19:00 80 122/58 (79) 96 Nasal Cannula 3.00 08/06/22 18:00 80 105/52 (67) 96 Room Air 08/06/22 17:00 79 115/59 (80) 95 08/06/22 16:00 Nasal Cannula 2.00 08/06/22 16:00 81 124/53 (77) 97 Room Air 08/06/22 15:39 37.3 08/06/22 15:00 82 122/50 (89) 92 Room Air 08/06/22 14:00 143/66 (87) 97 Room Air 08/06/22 14:00 Nasal Cannula 2.00 08/06/22 13:00 77 124/53 (88) 98 Room Air 08/06/22 13:00 74 I & O 08/07/22 07:00 Intake Total 1545 ml Output Total 1750 ml Balance -205 ml Height & Weight Height: 5'4.00" Weight: 210lbs. 12.8oz. 95.349132ww; 31.65 BMI Method:Estimated General Appearance: No Apparent Distress, Chronically ill HEENT: PERRL/EOMI, Pharynx Normal Neck: Normal Inspection, Supple Respiratory: Lungs Clear, No Respiratory Distress Cardiovascular: Regular Rate, Rhythm, No Murmur Capillary Refill: Less Than 3 Seconds Gastrointestinal: non tender, soft (Flank pain is better); No distended, No guarding, No rebound; tenderness (DIFFUSE LOWER ABDOMINAL TENDERNESS, AND BILATERAL FLANK TENDERNESS. ) Extremity: Normal Inspection, No Pedal Edema Neurologic/Psychiatric: Alert, Oriented x3 Skin: Normal Color, Warm/Dry Results Lab Laboratory Tests 08/06/22 01:25 08/07/22 03:36 Assessment/Plan Assessment/Plan 1 SHAYE MARTÍNEZ MD Aug 07, 2022 12:22
[2022-08-07] MEDS: cefTRIAXone 2,000 MG in NS (IVPB) 50 ML IV SCH (12:44)
[2022-08-07] MEDS: ENOXAPARIN 40 MG/0.4 ML (LOVENOX) SYR SC SCH (20:30)
[2022-08-08] VITALS (9 sets, daily range): BP systolic 84–130; BP diastolic 44–73
[2022-08-08] MEDS ORDERED: NS IV 500 ML 500 ML ONE (00:27)
[2022-08-08] MEDS ORDERED: NS IV 500 ML 500 ML IV SCH (00:30)
[2022-08-08] MEDS: NS IV 1000 ML 1,000 ML IV SCH ×4 (01:17→23:29)
[2022-08-08] MEDS: inSUlin ASPART (NovoLOG) 1 UNIT/0.01 ML (CHARGE PER UNIT) SC SCH ×4 (05:21→21:14)
[2022-08-08 05:55] LABS: BASOPHILS % (AUTO) 0 % (0-10); EOSINOPHILS # (AUTO) 0.1 10^3/uL (0.0-0.3); EOSINOPHILS % (AUTO) 1 % (0-10); HEMATOCRIT 32 % (35-52); HEMOGLOBIN 10.1 g/dL (11.5-16.0); LYMPHOCYTES # (AUTO) 0.5 10^3/uL (1.0-4.0); LYMPHOCYTES % (AUTO) 5 % (12-44); MEAN CORPUSCULAR HEMOGLOBIN 29 pg (25-34); MEAN CORPUSCULAR HGB CONC 32 g/dL (32-36); MEAN CORPUSCULAR VOLUME 93 fL (80-99); MEAN PLATELET VOLUME 10.1 fL (9.0-12.2); MONOCYTES % (AUTO) 10 % (0-12); NEUTROPHILS # (AUTO) 8.4 10^3/uL (1.8-7.8); NEUTROPHILS % (AUTO) 83 % (42-75); PLATELET COUNT 137 10^3/uL (130-400); WHITE BLOOD COUNT 10.1 10^3/uL (4.3-11.0)
[2022-08-08 05:56] LABS: POTASSIUM 3.9 MMOL/L (3.6-5.0)
[2022-08-08 05:57] LABS: CALCIUM 8.4 MG/DL (8.5-10.1)
[2022-08-08 06:01] LABS: PHOSPHORUS 2.1 MG/DL (2.3-4.7)
[2022-08-08 06:02] LABS: CREATININE SERUM 1.19 MG/DL (0.60-1.30)
[2022-08-08 06:04] LABS: MAGNESIUM 2.2 MG/DL (1.6-2.4)
[2022-08-08 06:15] LABS: ALBUMIN 2.7 GM/DL (3.2-4.5)
[2022-08-08 06:16] LABS: CALCIUM 8.4 MG/DL (8.5-10.1)
[2022-08-08 06:17] LABS: TOTAL PROTEIN 5.2 GM/DL (6.4-8.2)
[2022-08-08 06:19] LABS: BILIRUBIN,TOTAL 0.3 MG/DL (0.1-1.0)
[2022-08-08 06:20] LABS: PHOSPHORUS 2.1 MG/DL (2.3-4.7)
[2022-08-08 06:21] LABS: CREATININE SERUM 1.18 MG/DL (0.60-1.30)
[2022-08-08 06:23] LABS: MAGNESIUM 2.2 MG/DL (1.6-2.4)
[2022-08-08] MEDS: DOCUSATE SODIUM 100 MG (COLACE) CAP PO SCH ×2 (08:20→20:02)
[2022-08-08] MEDS: MEROPENEM 500 MG/NS 100 ML IVPB IV SCH ×6 (08:20→23:29)
[2022-08-08] MEDS: SENNOSIDES 8.6 MG (SENOKOT) TAB PO SCH ×2 (08:20→20:02)
[2022-08-08] MEDS: MILK OF MAGNESIA 400 MG/5 ML 30 ML UDC PO PRN (08:26)
[2022-08-08] MEDS: TIMOLOL MALEATE 0.5% 5 ML (TIMOPTIC) BTL OU SCH ×2 (08:54→20:02)
--- NOTE | 2022-08-08 10:15 | Occ Therapy Progress Note ---
Therapy Progress Note Patient with family and request OT return in afternoon RAFIA WYLIE OT Aug 08, 2022 10:15
--- NOTE | 2022-08-08 11:53 | Progress Note - Hospitalist ---
Subjective HPI/CC On Admission Date Seen by Provider: Aug 08, 2022 Joi Duran is an 86 year old female with PMH HTN, T2DM, HLD, obesity, who presented with chills. She had been seen in the [place] ER early yesterday and was recommended to be admitted but she went home instead. She worsened at home and returned. She was having rigors. She reports hurting everywhere. She has been having abdominal and back pain,. She reports nausea, but no vomiting. She denies chest pain. She has been a bit short of breath. She denies dysuria, urinary frequency, and urgency. She has not had much of an appetite. She was prescribed antibiotics but had not started taking them yet. Subjective/Events-last exam Pt reports doing ok but not a lot better. She states she's not hungry and a little short of breath. Did have one isolated incident of hypotension overnight. Focused Exam Lactate Level 08/06/22 01:25: Lactic Acid Level 2.36*H 08/06/22 03:47: Lactic Acid Level 1.18 Time of Focused Exam: 02:25 Objective Exam Vital Signs Vital Signs Date Time Temp Pulse Resp B/P (MAP) Pulse Ox O2 Delivery O2 Flow Rate FiO2 08/08/22 11:20 37.0 76 18 130/63 (85) 94 Nasal Cannula 2.00 Capillary Refill : Less Than 3 Seconds General Appearance: No Apparent Distress, Chronically ill Respiratory: Lungs Clear, No Respiratory Distress Cardiovascular: Regular Rate, Rhythm, No Murmur Gastrointestinal: Normal Bowel Sounds, Non Tender, Soft Neurologic/Psychiatric: Alert, Oriented x3 Results/Procedures Lab Laboratory Tests 08/08/22 05:30 Patient resulted labs reviewed. Imaging: Reviewed Imaging Report Assessment/Plan Assessment and Plan Assess & Plan/Chief Complaint Septic shock Pyelonephritis Gram negative bacteremia Lactic acidosis Acute kidney injury CT with pyelonephritis, possible punctate ureteral stone, mild ureteral dilatation UA consistent with UTI Urine and blood culture with e coli, previous culture from Er visit the day before admit is growing ESBL e coli IV fluids, decrease rate Merrem added today due to cultures Leukocytosis resolved Creatinine stable PT/OT HTN Hold home BP meds T2DM Sliding scale insulin HLD Obesity DVT prophylaxis: Lovenox Critical Care Critically Ill Patient BRITTNEY FULLER MD Aug 08, 2022 11:53
[2022-08-08] MEDS ORDERED: MILK OF MAGNESIA 400 MG/5 ML 30 ML UDC PO PRN (12:00)
--- NOTE | 2022-08-08 12:38 | Diagnostic Imaging Report ---
Indication: Shortness of air. COMPARISON: 08/07/2022 FINDINGS: Single frontal radiograph view the chest was obtained and demonstrates mild cardio mainly. Pulmonary vasculature is mildly prominent as well. There is also persistent small left basilar effusion. No large effusion is seen on the right. There is no pneumothorax on either side. Left-sided subclavian central venous catheter is noted with tip in the high SVC. Osseous structures show no new acute interval change. IMPRESSION: 1. Mild cardiomegaly with mild vascular congestion. 2. Interval development of small left basilar effusion. Dictated by: Dictated on workstation # [id number]
--- NOTE | 2022-08-08 14:00 | Physical Therapy Daily Note ---
PT Daily Note-Current Subjective Patient agrees to therapy. Pain Section J - Health Conditions 1. Rarely or not at all 2. Occasionally 3. Frequently 4. Almost constantly 8. Unable to answer Pain Effect on Sleep: 1 Pain Interference with Therapy: 1 Pain Interference w/Day-to-Day: 1 Mental Status Patient Orientation: Normal For Age Attachments: Oxygen, IV Transfers SCALE: Activities may be completed with or without assistive devices. 3-Jowsgalyxr-gqhguom completes the activity by him/herself with no assistance from a helper. 5-Set-up or Clean-up Assistance-helper sets up or cleans up; patient completes activity. [place] assists only prior to or following the activity. 4-Supervision or Touching Assistance-helper provides verbal cues and/or touching/steadying and/or contact guard assistance as patient completes activity. Assistance may be provided throughout the activity or intermittently. 3-Partial/Moderate Assistance-helper does LESS THAN HALF the effort. [place] lifts, holds or supports trunk or limbs, but provides less than half the effort. 2-Substantial/Maximal Assistance-helper does MORE THAN HALF the effort. [place] lifts or holds trunk or limbs and provides more than half the effort. 9-Nfetyvxsn-gnilhq does ALL the effort. Patient does none of the effort to complete the activity. Or, the assistance of 2 or more helpers is required for the patient to complete the activity. If activity was not attempted, code reason: 7-Patient Refused. 9-Not Applicable-not attempted and the patient did not perform the activity before the current illness, exacerbation or injury. 10-Not Attempted due to Environmental Limitations-(lack of equipment, weather restraints, etc.). 88-Not Attempted due to Medical Conditions or Safety Concerns. Sit to Lying (QC): 6 Lying to Sitting/Side of Bed(Q: 6 Sit to Stand (QC): 4 Toilet Transfer (QC): 4 Gait Training Distance: 250' Walk 10 feet (QC): 4 Walk 50 ft with 2 Turns(QC): 4 Walk 150 ft (QC): 4 Gait Assistive Device: FWW CGA for safety Assessment Patient requires 2L O2 with activity with noted decrease in SAO2 (81%) with minimal activity with quick recovery with 2L O2. Patient tolerated treatment well and returned to bed with all needs met. PT [facility] Goals Director Of Residence Life Goals PT Director Of Residence Life Goals Time Frame: Aug 19, 2022 Roll Left & Right (QC): 6 Sit to Lying (QC): 6 Lying-Sitting on Side/Bed(QC): 6 Sit to Stand (QC): 6 Chair/Abd-vp-Vmijp Xfer(QC): 6 Toilet Transfer (QC): 6 Walk 10 feet (QC): 6 Walk 50ft with 2 Turns (QC): 6 Walk 150 ft (QC): 6 PT Plan Treatment/Plan Treatment Plan: Continue Plan of Care Treatment Plan: Bed Mobility, Education, Functional Activity Jose David, Functional Strength, Gait, Safety, Therapeutic Exercise, Transfers Treatment Duration: Aug 19, 2022 Frequency: 6 times per week Estimated Hrs Per Day: .25 hour per day Patient and/or Family Agrees t: Yes Time Time In: 1325 Time Out: 1343 DATE: Aug 08, 2022 Total Billed Treatment Time: 18 Total Billed Treatment 1 visit FA 18 min ANASTASIA VINCENT PT Aug 08, 2022 14:00
--- NOTE | 2022-08-08 14:10 | Occupational Ther Daily Note ---
OT Current Status-Daily Note Subjective Laying in bed visiting family, agreeable to OT Mental Status/Objective Patient Orientation: Situation Attachments: IV reports dizziness with sitting EOB, and intermittently during session w/ ambulation, contact precautions ADL-Treatment Therapy Code Descriptions/Definitions Functional [place] Measure: 0=Not Assessed/NA 4=Minimal Assistance 1=Total Assistance 5=Supervision or Setup 2=Maximal Assistance 6=Modified [place] 3=Moderate Assistance 7=Complete IndependenceSCALE: Activities may be completed with or without assistive devices. 7-Lyjelnvrjr-iyursea completes the activity by him/herself with no assistance from a helper. 5-Set-up or Clean-up Assistance-helper sets up or cleans up; patient completes activity. [place] assists only prior to or following the activity. 4-Supervision or Touching Assistance-helper provides verbal cues and/or touching/steadying and/or contact guard assistance as patient completes activity. Assistance may be provided throughout the activity or intermittently. 3-Partial/Moderate Assistance-helper does LESS THAN HALF the effort. [place] lifts, holds or supports trunk or limbs, but provides less than half the effort. 2-Substantial/Maximal Assistance-helper does MORE THAN HALF the effort. [place] lifts or holds trunk or limbs and provides more than half the effort. 2-Xaspwdwkv-pwokgz does ALL the effort. Patient does none of the effort to complete the activity. Or, the assistance of 2 or more helpers is required for the patient to complete the activity. If activity was not attempted, code reason: 7-Patient Refused. 9-Not Applicable-not attempted and the patient did not perform the activity before the current illness, exacerbation or injury. 10-Not Attempted due to Environmental Limitations-(lack of equipment, weather restraints, etc.). 88-Not Attempted due to Medical Conditions or Safety Concerns. Eating (QC): 6 Oral Hygiene (QC): 5 Shower/Bathe Self (QC): 7 (spponge bath recommended) Upper Body Dressing (QC): 4 Lower Body Dressing (QC): 4 On/Off Footwear: 4 Toileting Hygiene (QC): 4 Toilet Transfer (QC): 4 (impulsive and reports dizziness) Education OT Patient Education: Disease process Teaching Recipient: Patient, Family (grandson) Teaching Methods: Demonstration, Discussion Response to Teaching: Verbalize Understanding, Reinforcement Needed OT [facility] Goals [facility] Goals Eating (QC): 6 Oral Hygiene (QC): 6 Toileting Hygiene (QC): 6 Shower/Bathe Self (QC): 6 Upper Body Dressing (QC): 6 Lower Body Dressing (QC): 6 On/Off Footwear (QC): 6 1=Demonstrate adherence to instructed precautions during ADL tasks. 2=Patient will verbalize/demonstrate understanding of assistive devices/modifications for ADL. 3=Patient will improve strength/tolerance for activity to enable patient to perform ADL's. OT Education/Plan Problem List/Assessment Assessment: Decreased Activ Tolerance, Impaired Cognition, Impaired Funct Balance, Impaired Self-Care Skills Discharge Recommendations Plan/Recommendations: Continue POC Treatment Plan/Plan of Care Patient would benefit from OT for education, treatment and training to promote independence in ADL's, mobility, safety and/or upper extremity function for ADL's. Plan of Care: ADL Retraining, Group Exercise/Act as Ind, UE Funct Exercise/Act Treatment Duration: Aug 12, 2022 Frequency: 3 times per week (3-5) Estimated Hrs Per Day: .25 hour per day Rehab Potential: Fair Returned to bed, supine w/ HOB elevation PCT to check vitals Time Start Time: 13:20 Stop Time: 13:44 DATE: Aug 08, 2022 Total Time Billed (hr/min): 24 Billed Treatment Time ADL 2 24 min RAFIA WYLIE OT Aug 08, 2022 14:10
[2022-08-08] MEDS: ENOXAPARIN 40 MG/0.4 ML (LOVENOX) SYR SC SCH (20:02)
[2022-08-09 03:45] VITALS: BP 119/59
[2022-08-09 06:08] LABS: BASOPHILS % (AUTO) 0 % (0-10); EOSINOPHILS # (AUTO) 0.1 10^3/uL (0.0-0.3); EOSINOPHILS % (AUTO) 1 % (0-10); HEMATOCRIT 32 % (35-52); LYMPHOCYTES # (AUTO) 0.9 10^3/uL (1.0-4.0); LYMPHOCYTES % (AUTO) 10 % (12-44); MEAN CORPUSCULAR HEMOGLOBIN 30 pg (25-34); MEAN CORPUSCULAR HGB CONC 32 g/dL (32-36); MEAN CORPUSCULAR VOLUME 95 fL (80-99); MEAN PLATELET VOLUME 10.1 fL (9.0-12.2); MONOCYTES # (AUTO) 1.3 10^3/uL (0.0-1.0); MONOCYTES % (AUTO) 14 % (0-12); NEUTROPHILS # (AUTO) 6.8 10^3/uL (1.8-7.8); NEUTROPHILS % (AUTO) 73 % (42-75); PLATELET COUNT 142 10^3/uL (130-400); WHITE BLOOD COUNT 9.4 10^3/uL (4.3-11.0)
[2022-08-09 06:25] LABS: ALBUMIN 2.6 GM/DL (3.2-4.5)
[2022-08-09 06:26] LABS: CALCIUM 8.3 MG/DL (8.5-10.1)
[2022-08-09 06:28] LABS: TOTAL PROTEIN 5.1 GM/DL (6.4-8.2)
[2022-08-09 06:29] LABS: BILIRUBIN,TOTAL 0.3 MG/DL (0.1-1.0)
[2022-08-09 06:31] LABS: CREATININE SERUM 1.05 MG/DL (0.60-1.30); PHOSPHORUS 1.9 MG/DL (2.3-4.7)
[2022-08-09] MEDS: inSUlin ASPART (NovoLOG) 1 UNIT/0.01 ML (CHARGE PER UNIT) SC SCH ×4 (06:32→21:06)
[2022-08-09 06:49] LABS: MAGNESIUM 2.2 MG/DL (1.6-2.4)
[2022-08-09 08:05] VITALS: BP 137/63
[2022-08-09] MEDS: MEROPENEM 500 MG/NS 100 ML IVPB IV SCH ×6 (09:08→23:40)
[2022-08-09] MEDS: DOCUSATE SODIUM 100 MG (COLACE) CAP PO SCH ×2 (09:08→21:04)
[2022-08-09] MEDS: TIMOLOL MALEATE 0.5% 5 ML (TIMOPTIC) BTL OU SCH ×2 (09:08→21:04)
[2022-08-09] MEDS: SENNOSIDES 8.6 MG (SENOKOT) TAB PO SCH ×2 (09:08→21:04)
--- NOTE | 2022-08-09 11:06 | Progress Note - Hospitalist ---
Subjective HPI/CC On Admission Date Seen by Provider: Aug 09, 2022 Joi Duran is an 86 year old female with PMH HTN, T2DM, HLD, obesity, who presented with chills. She had been seen in the [place] ER early yesterday and was recommended to be admitted but she went home instead. She worsened at home and returned. She was having rigors. She reports hurting everywhere. She has been having abdominal and back pain,. She reports nausea, but no vomiting. She denies chest pain. She has been a bit short of breath. She denies dysuria, urinary frequency, and urgency. She has not had much of an appetite. She was prescribed antibiotics but had not started taking them yet. Subjective/Events-last exam Pt reports doing much better today. No complaints. Up in bed bathing herself. Discussed plan to repeat blood cultures today to make sure infection is clearing. Focused Exam Time of Focused Exam: 02:25 Objective Exam Vital Signs Vital Signs Date Time Temp Pulse Resp B/P (MAP) Pulse Ox O2 Delivery O2 Flow Rate FiO2 08/09/22 12:50 71 08/09/22 11:14 36.8 20 145/67 (93) 98 Nasal Cannula 2.00 Capillary Refill : Less Than 3 Seconds General Appearance: No Apparent Distress Respiratory: Lungs Clear, No Respiratory Distress Cardiovascular: Regular Rate, Rhythm, No Murmur Neurologic/Psychiatric: Alert, Oriented x3 Results/Procedures Lab Laboratory Tests 08/09/22 05:25 Patient resulted labs reviewed. Imaging: Reviewed Imaging Report Assessment/Plan Assessment and Plan Assess & Plan/Chief Complaint Septic shock Pyelonephritis Gram negative bacteremia Lactic acidosis Acute kidney injury CT with pyelonephritis, possible punctate ureteral stone, mild ureteral dilatation UA consistent with UTI Urine and blood culture with e coli, previous culture from Er visit the day before admit is growing ESBL e coli, discussed with micro and c/s from this visit are the same IV fluids, decrease rate again Merrem Will need IV abx, SWB eval ordered Consider SWB admission or PICC with outpatient IV abx PT/OT HTN Hold home BP meds T2DM Sliding scale insulin HLD Obesity DVT prophylaxis: Lovenox Critical Care Critically Ill Patient BRITTNEY FULLER MD Aug 09, 2022 11:06 am
[2022-08-09 11:14] VITALS: BP 145/67
[2022-08-09] MEDS: NS IV 1000 ML 1,000 ML IV SCH ×2 (11:33→15:39)
--- NOTE | 2022-08-09 12:24 | Physical Therapy Daily Note ---
PT Daily Note-Current Subjective Patient sitting in chair upon PT arrival, agreeable to treatment. Patient rates pain at 0/10 currently. Son in room with patient, both state they are unaware why she is in isolation and that the cart and the signs were not outside of her room yesterday. Nursing notified. Pain Section J - Health Conditions 1. Rarely or not at all 2. Occasionally 3. Frequently 4. Almost constantly 8. Unable to answer Pain Effect on Sleep: 1 Pain Interference with Therapy: 1 Pain Interference w/Day-to-Day: 1 Transfers SCALE: Activities may be completed with or without assistive devices. 1-Cqtrmyzvyd-dsabsek completes the activity by him/herself with no assistance from a helper. 5-Set-up or Clean-up Assistance-helper sets up or cleans up; patient completes activity. [place] assists only prior to or following the activity. 4-Supervision or Touching Assistance-helper provides verbal cues and/or touching/steadying and/or contact guard assistance as patient completes activity. Assistance may be provided throughout the activity or intermittently. 3-Partial/Moderate Assistance-helper does LESS THAN HALF the effort. [place] lifts, holds or supports trunk or limbs, but provides less than half the effort. 2-Substantial/Maximal Assistance-helper does MORE THAN HALF the effort. [place] lifts or holds trunk or limbs and provides more than half the effort. 8-Jzehpvjak-rsrkzp does ALL the effort. Patient does none of the effort to complete the activity. Or, the assistance of 2 or more helpers is required for the patient to complete the activity. If activity was not attempted, code reason: 7-Patient Refused. 9-Not Applicable-not attempted and the patient did not perform the activity before the current illness, exacerbation or injury. 10-Not Attempted due to Environmental Limitations-(lack of equipment, weather restraints, etc.). 88-Not Attempted due to Medical Conditions or Safety Concerns. Sit to Stand (QC): 4 Chair/Hig-jy-Xjenb Xfer(QC): 4 Gait Training Does the Patient Walk?: Yes Distance: 250 feet Walk 10 feet (QC): 4 Walk 50 ft with 2 Turns(QC): 4 Walk 150 ft (QC): 4 Gait Persons Needed: 1 Gait Assistive Device: FWW Assessment Current Status: Poor Progress Patient requires SBA for all observed transfers. Patient ambulates 250 feet with FWW, with SBA and verbal cues for safety, progression, posture and conservation of energy. Patient very fatigued post gait training and requests to return to the bed. Patient in bed post treatment with all needs met, nursing notified, call light in hand, son in the room. PT [facility] Goals Reading Teacher Goals PT [facility] Goals Time Frame: Aug 19, 2022 Roll Left & Right (QC): 6 Sit to Lying (QC): 6 Lying-Sitting on Side/Bed(QC): 6 Sit to Stand (QC): 6 Chair/Lnk-wj-Dtclb Xfer(QC): 6 Toilet Transfer (QC): 6 Walk 10 feet (QC): 6 Walk 50ft with 2 Turns (QC): 6 Walk 150 ft (QC): 6 PT Plan Treatment/Plan Treatment Plan: Continue Plan of Care Treatment Plan: Bed Mobility, Education, Functional Activity Jose David, Functional Strength, Gait, Safety, Therapeutic Exercise, Transfers Treatment Duration: Aug 19, 2022 Frequency: 6 times per week Estimated Hrs Per Day: .25 hour per day Patient and/or Family Agrees t: Yes Safety Risks/Education Patient Education: Gait Training, Transfer Techniques Teaching Recipient: Patient Teaching Methods: Demonstration, Discussion Response to Teaching: Verbalize Understanding, Return Demonstration Time Time In: 935 Time Out: 950 DATE: Aug 09, 2022 Total Billed Treatment Time: 15 Total Billed Treatment Visit, MARCELLO Womack PT Aug 09, 2022 12:24
--- NOTE | 2022-08-09 12:52 | Occupational Ther Daily Note ---
OT Current Status-Daily Note Subjective Laying on Right side in bed visiting w/ family, agreeable to OT Mental Status/Objective Family questions addressed to best of OT ability for REHAB settings and and current contact precautions in place for safety of all patients, RN has addressed additional concerns of family visitor ADL-Treatment Therapy Code Descriptions/Definitions Functional [place] Measure: 0=Not Assessed/NA 4=Minimal Assistance 1=Total Assistance 5=Supervision or Setup 2=Maximal Assistance 6=Modified [place] 3=Moderate Assistance 7=Complete IndependenceSCALE: Activities may be completed with or without assistive devices. 2-Twnlzbwyll-uqzyvhw completes the activity by him/herself with no assistance f rom a helper. 5-Set-up or Clean-up Assistance-helper sets up or cleans up; patient completes activity. [place] assists only prior to or following the activity. 4-Supervision or Touching Assistance-helper provides verbal cues and/or touching/steadying and/or contact guard assistance as patient completes activity. Assistance may be provided throughout the activity or intermittently. 3-Partial/Moderate Assistance-helper does LESS THAN HALF the effort. [place] lifts, holds or supports trunk or limbs, but provides less than half the effort. 2-Substantial/Maximal Assistance-helper does MORE THAN HALF the effort. [place] lifts or holds trunk or limbs and provides more than half the effort. 0-Uwxmghtmm-ohntzj does ALL the effort. Patient does none of the effort to complete the activity. Or, the assistance of 2 or more helpers is required for the patient to complete the activity. If activity was not attempted, code reason: 7-Patient Refused. 9-Not Applicable-not attempted and the patient did not perform the activity before the current illness, exacerbation or injury. 10-Not Attempted due to Environmental Limitations-(lack of equipment, weather restraints, etc.). 88-Not Attempted due to Medical Conditions or Safety Concerns. Eating (QC): 6 Oral Hygiene (QC): 5 (set up in sitting d/t requires assistance of SBA for ambulation ) Bathing Location: L Arm, R Arm, Chest, Abdomen Shower/Bathe Self (QC): 3 Upper Body Dressing (QC): 4 Lower Body Dressing (QC): 5 On/Off Footwear: 4 Toileting Hygiene (QC): 5 Toilet Transfer (QC): 5 Education OT Patient Education: Correct positioning, Energy conservation, Exercise program, Modified ADL techniques, Progress toward Goal/Update tx plan, Purpose of tx/functional activities, Reviewed precautions, Rehab process, Safety issues, Transfer techniques, Use of adapted equipment Teaching Recipient: Patient, Family Teaching Methods: Demonstration, Discussion Response to Teaching: Reinforcement Needed OT Supervisor [employer] Goals Supervisor [employer] Goals Eating (QC): 6 Oral Hygiene (QC): 6 Toileting Hygiene (QC): 6 Shower/Bathe Self (QC): 6 Upper Body Dressing (QC): 6 Lower Body Dressing (QC): 6 On/Off Footwear (QC): 6 1=Demonstrate adherence to instructed precautions during ADL tasks. 2=Patient will verbalize/demonstrate understanding of assistive devices/modifications for ADL. 3=Patient will improve strength/tolerance for activity to enable patient to perform ADL's. OT Education/Plan Discharge Recommendations Plan/Recommendations: Continue POC Treatment Plan/Plan of Care Patient would benefit from OT for education, treatment and training to promote independence in ADL's, mobility, safety and/or upper extremity function for ADL's. Plan of Care: ADL Retraining, Group Exercise/Act as Ind, UE Funct Exercise/Act Treatment Duration: Aug 12, 2022 Frequency: 3 times per week (3-5) Estimated Hrs Per Day: .25 hour per day Rehab Potential: Fair Patient remains in recliner follow session, OT provides education for increasing tolerance to activity to return home and minimizing length of stay in bed. Time Start Time: 09:55 Stop Time: 10:25 DATE: Aug 09, 2022 Total Time Billed (hr/min): 30 Billed Treatment Time ADL 1, FA 1 30 min RAFIA WYLIE OT Aug 09, 2022 12:52
[2022-08-09 16:19] VITALS: BP 129/63
[2022-08-09 20:13] VITALS: BP 141/63
[2022-08-09] MEDS: ENOXAPARIN 40 MG/0.4 ML (LOVENOX) SYR SC SCH (21:05)
[2022-08-09 23:41] VITALS: BP 106/55
[2022-08-10 03:30] VITALS: BP 128/61
[2022-08-10] MEDS: inSUlin ASPART (NovoLOG) 1 UNIT/0.01 ML (CHARGE PER UNIT) SC SCH ×2 (05:30→11:05)
[2022-08-10 05:47] LABS: BASOPHILS % (AUTO) 1 % (0-10); EOSINOPHILS # (AUTO) 0.2 10^3/uL (0.0-0.3); EOSINOPHILS % (AUTO) 2 % (0-10); HEMATOCRIT 34 % (35-52); HEMOGLOBIN 10.6 g/dL (11.5-16.0); LYMPHOCYTES % (AUTO) 13 % (12-44); MEAN CORPUSCULAR HEMOGLOBIN 29 pg (25-34); MEAN CORPUSCULAR HGB CONC 31 g/dL (32-36); MEAN CORPUSCULAR VOLUME 94 fL (80-99); MEAN PLATELET VOLUME 9.6 fL (9.0-12.2); MONOCYTES # (AUTO) 1.1 10^3/uL (0.0-1.0); MONOCYTES % (AUTO) 13 % (0-12); NEUTROPHILS # (AUTO) 5.6 10^3/uL (1.8-7.8); NEUTROPHILS % (AUTO) 67 % (42-75); PLATELET COUNT 166 10^3/uL (130-400); WHITE BLOOD COUNT 8.3 10^3/uL (4.3-11.0)
[2022-08-10 05:59] LABS: CALCIUM 8.9 MG/DL (8.5-10.1)
[2022-08-10 06:04] LABS: CREATININE SERUM 1.05 MG/DL (0.60-1.30); PHOSPHORUS 1.9 MG/DL (2.3-4.7)
[2022-08-10 06:05] LABS: ALBUMIN 2.8 GM/DL (3.2-4.5)
[2022-08-10 06:06] LABS: MAGNESIUM 2.2 MG/DL (1.6-2.4)
[2022-08-10 06:07] LABS: TOTAL PROTEIN 5.5 GM/DL (6.4-8.2)
[2022-08-10 06:09] LABS: BILIRUBIN,TOTAL 0.3 MG/DL (0.1-1.0)
[2022-08-10 07:46] VITALS: BP 149/67
[2022-08-10] MEDS: DOCUSATE SODIUM 100 MG (COLACE) CAP PO SCH (08:17)
[2022-08-10] MEDS: MEROPENEM 500 MG/NS 100 ML IVPB IV SCH ×2 (08:17)
[2022-08-10] MEDS: SENNOSIDES 8.6 MG (SENOKOT) TAB PO SCH (08:18)
[2022-08-10] MEDS: TIMOLOL MALEATE 0.5% 5 ML (TIMOPTIC) BTL OU SCH (08:19)
[2022-08-10] MEDS: MILK OF MAGNESIA 400 MG/5 ML 30 ML UDC PO PRN (08:26)
--- NOTE | 2022-08-10 08:47 | Occupational Ther Daily Note ---
OT Current Status-Daily Note ADL-Treatment Therapy Code Descriptions/Definitions Functional [place] Measure: 0=Not Assessed/NA 4=Minimal Assistance 1=Total Assistance 5=Supervision or Setup 2=Maximal Assistance 6=Modified [place] 3=Moderate Assistance 7=Complete IndependenceSCALE: Activities may be completed with or without assistive devices. 7-Zhpiqecoji-mcgdinq completes the activity by him/herself with no assistance from a helper. 5-Set-up or Clean-up Assistance-helper sets up or cleans up; patient completes activity. [place] assists only prior to or following the activity. 4-Supervision or Touching Assistance-helper provides verbal cues and/or touching/steadying and/or contact guard assistance as patient completes activity. Assistance may be provided throughout the activity or intermittently. 3-Partial/Moderate Assistance-helper does LESS THAN HALF the effort. [place] lifts, holds or supports trunk or limbs, but provides less than half the effort. 2-Substantial/Maximal Assistance-helper does MORE THAN HALF the effort. [place] lifts or holds trunk or limbs and provides more than half the effort. 4-Qzcipzygj-ujqpkh does ALL the effort. Patient does none of the effort to complete the activity. Or, the assistance of 2 or more helpers is required for the patient to complete the activity. If activity was not attempted, code reason: 7-Patient Refused. 9-Not Applicable-not attempted and the patient did not perform the activity before the current illness, exacerbation or injury. 10-Not Attempted due to Environmental Limitations-(lack of equipment, weather restraints, etc.). 88-Not Attempted due to Medical Conditions or Safety Concerns. OT Half-Way Goals Right Of Way Agent Goals Eating (QC): 6 Oral Hygiene (QC): 6 Toileting Hygiene (QC): 6 Shower/Bathe Self (QC): 6 Upper Body Dressing (QC): 6 Lower Body Dressing (QC): 6 On/Off Footwear (QC): 6 1=Demonstrate adherence to instructed precautions during ADL tasks. 2=Patient will verbalize/demonstrate understanding of assistive devices/modifications for ADL. 3=Patient will improve strength/tolerance for activity to enable patient to perf orm ADL's. OT Education/Plan Treatment Plan/Plan of Care Patient would benefit from OT for education, treatment and training to promote independence in ADL's, mobility, safety and/or upper extremity function for ADL's. Plan of Care: ADL Retraining, Group Exercise/Act as Ind, UE Funct Exercise/Act Treatment Duration: Aug 12, 2022 Frequency: 3 times per week (3-5) Estimated Hrs Per Day: .25 hour per day Rehab Potential: Fair Time Start Time: 08:43 RAFIA WYLIE OT Aug 10, 2022 08:47
[2022-08-10] MEDS ORDERED: GEMFIBROZIL 600 MG (LOPID) TAB PO SCH (10:00)
[2022-08-10] MEDS ORDERED: EMPAGLIFLOZIN 10 MG TABLET (JARDIANCE) PO SCH (10:00)
[2022-08-10] MEDS ORDERED: eZETimibe 10 MG (ZETIA) TABLET PO SCH (10:00)
--- NOTE | 2022-08-10 10:20 | Discharge Summary ---
Diagnosis/Chief Complaint Date of Admission Aug 06, 2022 at 03:47 Date of Discharge Admission Diagnosis Septic shock Primary Care Darrin Thurman DO Discharge Diagnosis (1) Septic shock Status: Acute (2) Pyelonephritis Status: Acute (3) Gram-negative bacteremia Status: Acute (4) Lactic acidosis Status: Acute (5) PHILLIP (acute kidney injury) Status: Acute (6) Hydroureter on left Status: Acute Discharge Summary Discharge Physical Exam Allergies: Coded Allergies: No Known Drug Allergies (Unverified , 08/27/17) Vitals & I&Os Vital Signs Date Time Temp Pulse Resp B/P (MAP) Pulse Ox O2 Delivery O2 Flow Rate FiO2 08/10/22 08:00 Nasal Cannula 2.00 08/10/22 07:46 36.2 77 20 149/67 (94) 97 Hospital Course Labs (last 24 hrs) Laboratory Tests 08/09/22 11:06: Glucometer 113H 08/09/22 16:29: Glucometer 129H 08/09/22 20:46: Glucometer 103 08/10/22 05:30: White Blood Count 8.3, Red Blood Count 3.62L, Hemoglobin 10.6L, Hematocrit 34L, Mean Corpuscular Volume 94, Mean Corpuscular Hemoglobin 29, Mean Corpuscular Hemoglobin Concent 31L, Red Cell Distribution Width 14.1, Platelet Count 166, Mean Platelet Volume 9.6, Immature Granulocyte % (Auto) 5, Neutrophils (%) (Auto) 67, Lymphocytes (%) (Auto) 13, Monocytes (%) (Auto) 13H, Eosinophils (%) (Auto) 2, Basophils (%) (Auto) 1, Neutrophils # (Auto) 5.6, Lymphocytes # (Auto) 1.0, Monocytes # (Auto) 1.1H, Eosinophils # (Auto) 0.2, Basophils # (Auto) 0.0, Immature Granulocyte # (Auto) 0.4H, Sodium Level 142, Potassium Level 4.0, Chloride Level 113H, Carbon Dioxide Level 23, Anion Gap 6, Blood Urea Nitrogen 25H, Creatinine 1.05, Estimat Glomerular Filtration Rate 52, BUN/Creatinine Ratio 24, Glucose Level 115H, Calcium Level 8.9, Corrected Calcium 9.9, Phosphorus Level 1.9L, Magnesium Level 2.2, Total Bilirubin 0.3, Aspartate Amino Transf (AST/SGOT) 39H, Alanine Aminotransferase (ALT/SGPT) 40, Alkaline Phosphatase 84, Total Protein 5.5L, Albumin 2.8L 08/10/22 05:32: Glucometer 111H Microbiology 08/06/22 MRSA Screen - Final, Complete MRSA not isolated 08/06/22 Urine Culture - Final, Complete Escherichia coli See Comments 08/06/22 Blood Culture - Preliminary, Resulted Gram Negative Blayne See Comments Patient resulted labs reviewed. Pending Labs Laboratory Tests 08/10/22 05:30: White Blood Count 8.3, Red Blood Count 3.62, Hemoglobin 10.6, Hematocrit 34, Mean Corpuscular Volume 94, Mean Corpuscular Hemoglobin 29, Mean Corpuscular Hemoglobin Concent 31, Red Cell Distribution Width 14.1, Platelet Count 166, Mean Platelet Volume 9.6, Immature Granulocyte % (Auto) 5, Neutrophils (%) (Auto) 67, Lymphocytes (%) (Auto) 13, Monocytes (%) (Auto) 13, Eosinophils (%) (Auto) 2, Basophils (%) (Auto) 1, Neutrophils # (Auto) 5.6, Lymphocytes # (Auto) 1.0, Monocytes # (Auto) 1.1, Eosinophils # (Auto) 0.2, Basophils # (Auto) 0.0, Immature Granulocyte # (Auto) 0.4, Sodium Level 142, Potassium Level 4.0, Chloride Level 113, Carbon Dioxide Level 23, Anion Gap 6, Blood Urea Nitrogen 25, Creatinine 1.05, Estimat Glomerular Filtration Rate 52, BUN/Creatinine Ratio 24, Glucose Level 115, Calcium Level 8.9, Corrected Calcium 9.9, Phosphorus Leve l 1.9, Magnesium Level 2.2, Total Bilirubin 0.3, Aspartate Amino Transf (AST/SGOT) 39, Alanine Aminotransferase (ALT/SGPT) 40, Alkaline Phosphatase 84, Total Protein 5.5, Albumin 2.8 08/10/22 05:32: Glucometer 111 Imaging: Reviewed Imaging Report Discharge Home Medications: Active Scripts Active Reported Fish Oil 1,000 mg Softgel ([place]-3/Dha/Epa/Fish Oil) 1,000 Mg (120 Mg-180 Mg) Capsule 1,000 Mg PO DAILY Hair, Skin & Nails (Multivitamin with Minerals) 1 Each Tablet 1 Each PO DAILY Aspirin EC (Aspirin) 81 Mg Tablet.dr 81 Mg PO HS [Syntra 5] Cap 1 Ea PO BID Vitamin D3 (Cholecalciferol (Vitamin D3)) 25 Mcg (1000 Unit) Tablet 25 Mcg PO DAILY Preservision Areds 2 Softgel (Vit C/E/Zn/Coppr/Lutein/Zeaxan) 250MG-90MG Capsule 1 Each PO HS Farxiga (Dapagliflozin Propanediol) 10 Mg Tablet 10 Mg PO DAILY Ezetimibe 10 Mg Tablet 10 Mg PO DAILY Timolol Maleate 0.5% (Timolol Maleate) 0.5 % Drops 1 Drop OU BID Cephalexin 500 Mg Capsule 500 Mg PO QID FILLED 08-05-2022 #28/7 DAY SUPPLY Losartan Potassium 25 Mg Tablet 25 Mg PO DAILY Gemfibrozil 600 Mg Tablet 600 Mg PO BID Allopurinol 300 Mg Tablet 150 Mg PO HS TAKES OF A 300MG TAB Instructions to patient/family Please see electronic discharge instructions given to patient. BRITTNEY FULLER MD Aug 10, 2022 10:20
--- NOTE | 2022-08-10 10:38 | Occupational Ther Daily Note ---
OT Current Status-Daily Note Subjective Up in recliner, agreeable to OT, son is present and steps out of room Mental Status/Objective Patient Orientation: Situation Attachments: IV, Oxygen (2Liter NC) Impulsive w/ movement and ambulation , decreased awareness of length restriction of lines and t tubing, does not plan safest route to destination or plan for equipment while ambulating ADL-Treatment Therapy Code Descriptions/Definitions Functional [place] Measure: 0=Not Assessed/NA 4=Minimal Assistance 1=Total Assistance 5=Supervision or Setup 2=Maximal Assistance 6=Modified [place] 3=Moderate Assistance 7=Complete IndependenceSCALE: Activities may be completed with or without assistive devices. 9-Mxgnansxrh-sftdygs completes the activity by him/herself with no assistance from a helper. 5-Set-up or Clean-up Assistance-helper sets up or cleans up; patient completes activity. [place] assists only prior to or following the activity. 4-Supervision or Touching Assistance-helper provides verbal cues and/or touching/steadying and/or contact guard assistance as patient completes activity. Assistance may be provided throughout the activity or intermittently. 3-Partial/Moderate Assistance-helper does LESS THAN HALF the effort. [place] lifts, holds or supports trunk or limbs, but provides less than half the effort. 2-Substantial/Maximal Assistance-helper does MORE THAN HALF the effort. [place] lifts or holds trunk or limbs and provides more than half the effort. 6-Ikgcrfgbp-btakqb does ALL the effort. Patient does none of the effort to complete the activity. Or, the assistance of 2 or more helpers is required for the patient to complete the activity. If activity was not attempted, code reason: 7-Patient Refused. 9-Not Applicable-not attempted and the patient did not perform the activity before the current illness, exacerbation or injury. 10-Not Attempted due to Environmental Limitations-(lack of equipment, weather restraints, etc.). 88-Not Attempted due to Medical Conditions or Safety Concerns. Eating (QC): 6 Oral Hygiene (QC): 5 (standing at bathroom sink w/ OT present for safety and navigation of IV pole and 02 tank) Shower/Bathe Self (QC): 7 (patient continually decline shower when offerred from OT) Upper Body Dressing (QC): 4 (d/t lines) Lower Body Dressing (QC): 4 (requires person for navigation and positon of FWW for safety) On/Off Footwear: 5 Toileting Hygiene (QC): 5 Toilet Transfer (QC): 5 OT performed modified SILVER for safety concerns of being home alone. Patient responds that her family assists with paying bills, she doesn't answer the door because the family has a code entry and she would call them if someone came to the door. she reports if she had severe chest pain she would call 911 and her family, if there were a fire in home she would call 911, grab an extinguisher and leave the house. Patient reports she cooks for her grandchildren that walk across the street from school. OT presented safety scenarios and patient provided appropriate answers. Education OT Patient Education: Energy conservation, Exercise program, Instructions to caregiver, Modified ADL techniques, Progress toward Goal/Update tx plan, Purpose of tx/functional activities, Reviewed precautions, Rehab process, Safety issues, Transfer techniques, Use of adapted equipment Teaching Recipient: Patient, Family (son present for cognitive scenarios) Teaching Methods: Demonstration, Discussion Response to Teaching: Verbalize Understanding OT Car Repairer Goals Retirement Goals Eating (QC): 6 Oral Hygiene (QC): 6 Toileting Hygiene (QC): 6 Shower/Bathe Self (QC): 6 Upper Body Dressing (QC): 6 Lower Body Dressing (QC): 6 On/Off Footwear (QC): 6 1=Demonstrate adherence to instructed precautions during ADL tasks. 2=Patient will verbalize/demonstrate understanding of assistive de vices/modifications for ADL. 3=Patient will improve strength/tolerance for activity to enable patient to perform ADL's. OT Education/Plan Discharge Recommendations Plan/Recommendations: Continue POC Treatment Plan/Plan of Care Patient would benefit from OT for education, treatment and training to promote independence in ADL's, mobility, safety and/or upper extremity function for ADL's. Plan of Care: ADL Retraining, Group Exercise/Act as Ind, UE Funct Exercise/Act Treatment Duration: Aug 12, 2022 Frequency: 3 times per week (3-5) Estimated Hrs Per Day: .25 hour per day Rehab Potential: Fair Patient returned to recliner and instructed to change position to offload pressure, all needs met Time Start Time: 08:43 Stop Time: 09:09 DATE: Aug 10, 2022 Total Time Billed (hr/min): 23 Billed Treatment Time ADL 2 23 min RAFIA WYLIE OT Aug 10, 2022 10:38
[2022-08-10] MEDS ORDERED: ALLOPURINOL 300 MG (ZYLOPRIM) TAB PO SCH (21:00)
[2022-08-10] MEDS ORDERED: ASPIRIN E.C. 81 MG (ECOTRIN) TAB PO SCH (21:00)
[2022-08-11] MEDS ORDERED: NON-FORMULARY MEDICATION 1 EA EA (Dapagliflozin Propanediol (Farxiga) 10 MG) PO SCH (09:00)
== END 2022-08-10 11:49 | disposition swing bed (61) | DRG 872 ==
LOC: EDUNIT# 01:08 → ER 01:15 → ICU 03:47 → 4TH 08-07 15:15
PROVIDERS: ADMIT Internal Medicine; ATTEND Internal Medicine
PROC: 02HV33Z Insertion of Infusion Device into Superior Vena Cava, Percutaneous Approach (ICD-10-PCS; principal; 2022-08-06)
DX: A41.51 Sepsis due to Escherichia coli [E. coli] (principal); Z16.12 Extended spectrum beta lactamase (ESBL) resistance; N10 Acute pyelonephritis; N13.6 Pyonephrosis; N17.9 Acute kidney failure, unspecified; E87.20 Acidosis, unspecified; R65.20 Severe sepsis without septic shock; N20.0 Calculus of kidney; E86.0 Dehydration; I10 Essential (primary) hypertension; E11.9 Type 2 diabetes mellitus without complications; E78.00 Pure hypercholesterolemia, unspecified; K59.09 Other constipation; M10.9 Gout, unspecified; H40.9 Unspecified glaucoma; H91.90 Unspecified hearing loss, unspecified ear; E66.9 Obesity, unspecified; Z68.33 Body mass index [BMI] 33.0-33.9, adult; Z66 Do not resuscitate; Z79.82 Long term (current) use of aspirin; Z79.84 Long term (current) use of oral hypoglycemic drugs; Z79.899 Other long term (current) drug therapy
CPT/HCPCS: 36415; 51702; 71045; 80048; 80053; 81000; 82150; 82947; 83605; 83735; 84100; 85007; 85025; 85027; 85610; 85652; 85730; 86141; 87040; 87077; 87081; 87088; 93041; 94664

== ENCOUNTER 2022-08-10 12:00 | Inpatient (IN) | payer MEDICARE ==
[~2022-08-10] VITALS: Ht 162.6 cm; Wt 88.5 kg
[~2022-08-10 12:00] MED LIST changes: +ACETAMINOPHEN 325 MG TABLET PO PRN; +ANTACID SUSP 30 ML UDC (MYLANTA) PO PRN; +ASPI-1238 PO; +BISACODYL 10 MG SUPP (DULCOLAX) PR PRN; +CALCIUM CARBONATE 500 MG (TUMS) TAB.CHEW PO PRN; +CEPH500C PO; +CHOL-34 PO; +DAPA10TA PO; +EZET10TA49 PO; +LACTULOSE SYRUP 10GM/15ML (ENULOSE) 30ML UDC PO PRN; +MULT-1054 PO; +OMEG100032 PO; +ONDANSETRON 4 MG (ZOFRAN) ORAL DISSOLVE TAB PO PRN; +ONDANSETRON 4 MG/2 ML (SDV) Z0FRAN IV PRN; +TIMO5DRO5 OU; +VIT1CAPS44 PO; +[UNRECOGNIZED DRUG - OTHER] PO; +polyethylene glycoL POWDER 17 GM (MIRALAX) PACK PO PRN
--- OUTSIDE RECORDS SUMMARY | 2022-08-10 12:04 | XMS REPORT | Clinical Summary ---
Author Author [facility] Organization [facility] Address Unknown Phone Unavailable Care Team Providers Care Train Driver Name Role Phone Darrin Thurman PCP Source Comments Some departments are not documenting in the electronic medical record. If you d o not see the information that you expected, contact Release of Information in [facility] [employer] Information Management department at [phone] for further assistan ce in locating additional records.[facility] Allergies No known active allergies Medications End Date Status Medication Sig Dispensed Refills Start Date Active allopurinol (ZYLOPRIM) TAKE 1/2 0 300 mg tablet TABLET BY MOUTH DAILY Active gemfibrozil (LOPID) 600 Take 600 mg 0 mg tablet by mouth twice daily. Active glyBURIDE (DIABETA) 1.25 Take 1.25 mg 0 mg tablet by mouth daily with breakfast. Take with food. Active losartan (COZAAR) 25 mg Take 25 mg by 0 tablet mouth daily. Active aspirin EC 81 mg tablet Take 81 mg by 0 mouth daily. Take with food. Active fish oil /omega-3 fatty Take 1 0 acids (SEA-OMEGA) capsule by 340/1000 mg capsule mouth daily. Active Cholecalciferol (Vitamin Take 1 tablet 0 D3) 3,000 unit tab by mouth daily. Active mv,Ca,min-iron Take 3 0 nbmk-ZJ-epobmi (HAIR,SKIN tablets by AND NAILS) 1 mg iron-66.7 mouth daily. mcg-1,000 mcg tab Active dextran 70/hypromellose Apply 1 drop 0 (ARTIFICIAL to both eyes TEARS([id number])) once. 0.1/0.3 % ophthalmic solution Active timolol maleate Apply 1 drop 0 (TIMOPTIC) 0.5 % to both eyes ophthalmic drops daily. Active fluticasone (FLONASE) 50 Apply 1 spray 0 mcg/actuation nasal spray to each nostril as directed daily. Shake bottle gently before using. Active oxyCODONE (ROXICODONE, Take one 20 tablet 0 OXY-IR) 5 mg tablet tablet to two 9 tablets by mouth every 4 hours as needed Earliest Fill Date: 05/24/18 Active Problems Problem Noted Date Pure hypertriglyceridemia 03/11/2019 Chronic right-sided low back pain without sciatica 1 05/11/2018 Closed fracture of left orbital floor with routine he aling 05/28/2018 Acute pain due to trauma 05/24/2018 Essential hypertension 05/24/2018 Overview: 03/04/19: MPI:EF 66%. LV is normal in s ize. There are no significant wall motion abnormalities. This was a negati ve study without significant ECG, or myocardial scanning indications of Kim scan induced myocardial ischemia or arrhythmia. LV end-diastolic volume is 101 ml. Type 2 diabetes mellitus, without long-term current u se of insulin 05/24/2018 Trauma 05/24/2018 Resolved Problems Problem Noted Date Resolved Date Closed fracture of facial bone due to fall 05/24/2018 05/28/2018 Surgical History Surgery Date Site/Laterality Comments HX TONSILLECTOMY KNEE REPLACEMENT HYSTERECTOMY GALLBLADDER SURGERY HX CATARACT REMOVAL SHOULDER SURGERY HIP REPLACEMENT GLAUCOMA SURGERY LASER EYE SURGERY Medical History Medical History Date Comments Seasonal allergic reaction Social History Date Tobacco Use Types Packs/Day Years Used Smoking Tobacco: Never Smokeless Tobacco: Never Comments Alcohol Use Standard Drinks/Week No 0 (1 standard drink = 0.6 o z pure alcohol) Alcohol Habits Answer Date Recorded How often do you have a drink containing alcohol? Never 05/24/2018 How many drinks containing alcohol do you have on No t asked a typical day when you are drinking? How often do you have six or more drinks on one Not asked occasion? Sex Assigned at Date Recorded Not on file Obstetrics History Last Filed Vital Signs Reading Time Taken Comments Vital Sign 128/76 03/11/2019 9:33 AM SAP ADMINISTRATOR Blood Pressure 65 03/11/2019 9:33 AM SAP ADMINISTRATOR Pulse 36.7 C (98.1 F) 05/24/2018 2:33 PM SAP ADMINISTRATOR Temperature - - Respiratory Rate 98% 05/24/2018 2:33 PM SAP ADMINISTRATOR Oxygen Saturation - - Inhaled Oxygen Concentration 81.9 kg (180 lb 9.6 oz) 03/11/2019 9:33 AM SAP ADMINISTRATOR Weight 165.1 cm (5' 5") 03/11/2019 9:33 AM SAP ADMINISTRATOR Height 30.05 03/11/2019 9:33 AM SAP ADMINISTRATOR Body Mass Index Plan of Treatment Health Maintenance Due Date Last Done Comments MEDICARE ANNUAL WELLNESS 1935 VISIT COVID-19 VACCINE (#1) 04/12/1938 DTAP/TDAP VACCINES (1 - 10/12/1955 Tdap) PHYSICAL (COMPREHENSIVE) 10/12/1955 EXAM SHINGLES RECOMBINANT 10/12/1987 VACCINE (1 of 2) OSTEOPOROSIS 2002 SCREENING/MONITORING INFLUENZA VACCINE (#1) 2021 ADVANCED CARE PLANNING 05/07/2022 DISCUSSION AND DOCUMENTATION DEPRESSION SCREENING 05/07/2022 PNEUMOCOCCAL VACCINE Completed 12/27/2017, 11/30/2016 Results Not on filefrom Last 3 Months Insurance Type Payer Benefit Subscriber ID Effective Phone Address Plan / Dates Group Medicare MEDICARE MEDICARE [id number] 2002-P [phone] [address] [place] [phone] Advance Directives Date Inactivated Comments Code Status Date Activated 05/24/2018 6:20 PM Full Code 05/24/2018 1:11 PM Comments Question Answer Provider has Yes discussed Code Status w/Patient or Family? Date Inactivated Comments Code Status Date Activated 05/24/2018 1:11 PM Full Code 05/24/2018 1:11 PM Comments Question Answer Provider has Yes discussed Code Status w/Patient or Family? 05/24/2018 1:11 PM Full Code 05/23/2018 5:40 PM Comments Question Answer Provider has No, more discussion needed discussed Code Status w/Patient or Family? Care Teams Start Date End Date Train Driver Relationship Specialty 05/23/18 Darrin Thurman DO PCP - [address] [id number]
--- NOTE | 2022-08-10 14:45 | Occupational Therapy Eval ---
OT Evaluation-General/PLF Medical Diagnosis Admission Date Aug 10, 2022 at 12:00 Medical Diagnosis: ESBO Onset Date: Aug 10, 2022 Therapy Diagnosis Therapy Diagnosis: weakness Height/Weight Height (Feet): 5 Height (Inches): 4.00 Weight (Pounds): 210 Weight (Ounces): 12.8 Precautions Precautions/Isolations: Standard Precautions, Contact/Enteric Isolation Weight Bear Status Weight Bearing Restriction: Full Weight Bearing Referral Referral Reason: Activity Tolerance, Self Care, Evaluation/Treatment, Strengthening/ROM Medical History Pertinent Medical History: Arthritis, DM, HTN Current History ESBL Reviewed History: Yes Social History Home: Single Level Current Living Status: Alone ADL-Prior Level of Function SCALE: Activities may be completed with or without assistive devices. 1-Yvudavqhwf-dwnatqm completes the activity by him/herself with no assistance from a helper. 5-Set-up or Clean-up Assistance-helper sets up or cleans up; patient completes activity. [place] assists only prior to or following the activity. 4-Supervision or Touching Assistance-helper provides verbal cues and/or touching/steadying and/or contact guard assistance as patient completes a ctivity. Assistance may be provided throughout the activity or intermittently. 3-Partial/Moderate Assistance-helper does LESS THAN HALF the effort. [place] lifts, holds or supports trunk or limbs, but provides less than half the effort. 2-Substantial/Maximal Assistance-helper does MORE THAN HALF the effort. [place] lifts or holds trunk or limbs and provides more than half the effort. 6-Mnlkzirqx-oaldik does ALL the effort. Patient does none of the effort to complete the activity. Or, the assistance of 2 or more helpers is required for the patient to complete the activity. If activity was not attempted, code reason: 7-Patient Refused. 9-Not Applicable-not attempted and the patient did not perform the activity before the current illness, exacerbation or injury. 10-Not Attempted due to Environmental Limitations-(lack of equipment, weather restraints, etc.). 88-Not Attempted due to Medical Conditions or Safety Concerns. Self Care: Independent Functional Cognition: Independent OT Current Status Subjective Agreeable to OT. Mental Status/Objective Patient Orientation: Person, Place, Time, Situation Attachments: IV, Oxygen (2 liters NC) Current Glasses/Contacts: Yes Upper Extremity ROM BUE ROM WFLs, reduced joint approximation d/t excessive soft tissue Upper Extremity Coordination INTACT Upper Extremity Sensation INTACT Upper Extremity Strength -4/5 ADL-Treatment Eating (QC): 6 Oral Hygiene (QC): 5 (STANDING AT SINK) Shower/Bathe Self (QC): 7 Upper Body Dressing (QC): 4 Lower Body Dressing (QC): 5 On/Off Footwear (QC): 5 Toileting Hygiene (QC): 5 Education OT Patient Education: Exercise program, Modified ADL techniques, Progress toward Goal/Update tx plan, Purpose of tx/functional activities, Reviewed precautions, Rehab process, Safety issues, Transfer techniques, Use of adapted equipment Teaching Recipient: Patient Teaching Methods: Demonstration, Discussion Response to Teaching: Verbalize Understanding, Reinforcement Needed BIMS CAM BIMS Expression of Ideas and Wants: Without Difficulty Understanding Verbal Content: Understands Brief Interview/Mental Status: No IRF LEANDRA BIMS: IRF LEANDRA BIMS Response (Comments) Value Repitition of Three Words Three 3 Recalls Socks Yes, No Cue Required 2 Recalls Bed Yes, No Cue Required 2 Year Correct 3 Month Accurate Within 5 Days 2 Day Correct 1 Total 13 Patient Normally Able to Recal: Current Session, Staff Names and faces, That he/she in a hsp Should Staff Asses. Mental St.: No CAM Mental Status Change/Baseline: 0 Inattention: 0 Disorganized thinkin Altered level of consciousness: 0 OT Short Term Goals Short Term Goals Eatin Oral hygiene: 6 Toileting hygiene: 6 Shower/bathe self: 4 Upper body dressin Lower body dressin Putting on/taking off footwear: 6 OT Work Station Support Specialist Goals Work Station Support Specialist Goals Time Frame: Aug 19, 2022 1=Demonstrate adherence to instructed precautions during ADL tasks. 2=Patient will verbalize/demonstrate understanding of assistive devices/modifications for ADL. 3=Patient will improve strength/tolerance for activity to enable patient to p erform ADL's. OT Education/Plan Problem List/Assessment Assessment: Decreased Activ Tolerance, Decreased UE Strength, Impaired Funct Balance, Impaired Self-Care Skills Discharge Recommendations Plan/Recommendations: Continue POC Treatment Plan/Plan of Care Treatment,Training & Education: Yes Patient would benefit from OT for education, treatment and training to promote independence in ADL's, mobility, safety and/or upper extremity function for ADL's. Plan of Care: ADL Retraining, Functional Mobility, Group Exercise/Act as Ind, UE Funct Exercise/Act Treatment Duration: Sep 02, 2022 Frequency: 5 times per week Estimated Hrs Per Day: .25 hour per day Rehab Potential: Guarded Time Start Time: 13:30 Stop Time: 13:55 DATE: Aug 10, 2022 Total Time Billed (hr/min): 25 Billed Treatment Time CARA FLORES 25 MIN RAFIA WYLIE OT Aug 10, 2022 14:45
--- NOTE | 2022-08-10 15:03 | Physical Therapy Evaluation ---
PT Evaluation-General Medical Diagnosis Admission Date Aug 10, 2022 at 12:00 Medical Diagnosis: sepsis/UTI Onset Date: Aug 07, 2022 Therapy Diagnosis Therapy Diagnosis: generalized weakness/debility Height/Weight Height (Feet): 5 Height (Inches): 4.00 Weight (Pounds): 210 Weight (Ounces): 12.8 Precautions Precautions/Isolations: Contact Isolation Referral Physician: Bryan Reason for Referral: Evaluation/Treatment Medical History Pertinent Medical History: Arthritis, DM, HTN Current History SWB status Reviewed History: Yes Social History Home: Single Level Current Living Status: Alone Prior Prior Level of Function SCALE: Activities may be completed with or without assistive devices. 2-Ubmdletjnk-mreudfh completes the activity by him/herself with no assistance from a helper. 5-Set-up or Clean-up Assistance-helper sets up or cleans up; patient completes activity. [place] assists only prior to or following the activity. 4-Supervision or Touching Assistance-helper provides verbal cues and/or touching/steadying and/or contact guard assistance as patient completes activity. Assistance may be provided throughout the activity or intermittently. 3-Partial/Moderate Assistance-helper does LESS THAN HALF the effort. [place] lifts, holds or supports trunk or limbs, but provides less than half the effort. 2-Substantial/Maximal Assistance-helper does MORE THAN HALF the effort. [place] lifts or holds trunk or limbs and provides more than half the effort. 1-Tbrhalkzm-vbwwdv does ALL the effort. Patient does none of the effort to complete the activity. Or, the assistance of 2 or more helpers is required for the patient to complete the activity. If activity was not attempted, code reason: 7-Patient Refused. 9-Not Applicable-not attempted and the patient did not perform the activity before the current illness, exacerbation or injury. 10-Not Attempted due to Environmental Limitations-(lack of equipment, weather restraints, etc.). 88-Not Attempted due to Medical Conditions or Safety Concerns. Bed Mobility: 6 Transfers (B,C,W/C): 6 Gait: 6 Stairs: 6 Indoor Mobility (Ambulation): Independent Stairs: Independent Prior Devices Use: Walker PT Evaluation-Current Subjective Patient agrees to PT. Pain Section J - Health Conditions 1. Rarely or not at all 2. Occasionally 3. Frequently 4. Almost constantly 8. Unable to answer Pain Effect on Sleep: 1 Pain Interference with Therapy: 1 Pain Interference w/Day-to-Day: 1 Objective Patient Orientation: Person, Time, Situation Attachments: Oxygen, IV ROM/Strength ROM Lower Extremities bilateral LE WFL Strength Lower Extremities 3+/5 grossly bilateral LE all planes Integumentary/Posture Bowel Incontinence: No Bladder Incontinence: No Posture WFL Neuromuscular (Tone, Coordination, Reflexes) grossly intact Sensory Vision: Wears Glasses Hearing: Functional Transfers Roll Left & Right (QC): 4 Sit to Lying (QC): 4 Lying to Sitting/Side of Bed(Q: 4 Sit to Stand (QC): 3 Chair/Kmr-wv-Mahnq Xfer(QC): 3 Toilet Transfer (QC): 3 Car Transfer (QC): 3 Gait Mode of Locomotion: Walk Anticipated Mode of Locomotion: Walk Walk 10 feet (QC): 4 Walk 50 ft with 2 Turns(QC): 4 Walk 150 ft (QC): 4 Walking 10ft/uneven surface-QC: 4 Distance: 250' Gait Assistive Device: FWW Comments/Gait Description slow, steady Wheelchair Training Wheel 50 ft with 2 turns (QC): 9 Wheel 150 ft (QC): 9 Type of Wheelchair: N/A Stairs #of Steps: 1 1 Step (curb) (QC): 4 4 Steps (QC): 88 12 Steps (QC): 9 Walking Assistive Device: Walker Balance Sitting Static: Normal Sitting Dynamic: Normal Standing Static: Fair Standing Dynamic: Fair Picking up an Object (QC): 3 Assessment/Needs Patient will benefit from skilled PT to address functional strength and mobility to improve current LOF to safely return to home at maximum LOF. Rehab Potential: Fair PT Electrical Design Technician Goals Electrical Design Technician Goals PT Electrical Design Technician Goals Time Frame: Sep 02, 2022 Roll Left to Right (QC): 6 Sit to Lying (QC): 6 Lying-Sitting on Side/Bed(QC): 6 Sit to Stand (QC): 6 Chair/Lbk-lt-Gkyxi Xfer(QC): 6 Toilet/Commode Transfer (QC): 6 Car Transfer (QC): 6 Walk 10 feet (QC): 5 Walk 10ft-Uneven Surface(QC): 5 Walk 50ft with 2 Turns (QC): 5 Walk 150 ft (QC): 5 Wheel 50 feet with 2 turns (QC: 9 Type: N/A Wheel 150 feet: 9 Type: N/A 1 Step (curb) (QC): 4 4 Steps (QC): 4 12 Steps (QC): 9 Picking up an Object (QC): 6 PT Plan Problem List Problem List: Activity Tolerance, Functional Strength, Safety, Balance, Gait, Transfer, Bed Mobility Treatment/Plan Treatment Plan: Continue Plan of Care Treatment Plan: Bed Mobility, Education, Functional Activity Jose David, Functional Strength, Gait, Safety, Therapeutic Exercise, Transfers Treatment Duration: Sep 02, 2022 Frequency: 6 times per week Estimated Hrs Per Day: .25 hour per day Patient and/or Family Agrees t: Yes Time Time In: 1250 Time Out: 1315 DATE: Aug 10, 2022 Total Billed Treatment Time: 25 Total Billed Treatment 1 visit EVModC 10 min FA 15 min ANASTASIA VINCENT PT Aug 10, 2022 15:03
[2022-08-10] MEDS: MEROPENEM 500 MG in NS (IVPB) 100 ML IV SCH (15:22)
[2022-08-10] MEDS: inSUlin ASPART (NovoLOG) 1 UNIT/0.01 ML (CHARGE PER UNIT) SC SCH ×2 (16:03→21:25)
[2022-08-10 20:16] VITALS: BP 134/66
[2022-08-10] MEDS: TIMOLOL MALEATE 0.5% 5 ML (TIMOPTIC) BTL OU SCH (20:53)
[2022-08-10] MEDS: ASPIRIN E.C. 81 MG (ECOTRIN) TAB PO SCH (20:54)
[2022-08-10] MEDS: ENOXAPARIN 40 MG/0.4 ML (LOVENOX) SYR SC SCH (20:54)
[2022-08-10] MEDS: GEMFIBROZIL 600 MG (LOPID) TAB PO SCH (20:54)
[2022-08-10] MEDS: ALLOPURINOL 300 MG (ZYLOPRIM) TAB PO SCH (20:54)
[2022-08-10] MEDS: SENNOSIDES 8.6 MG (SENOKOT) TAB PO SCH (21:05)
[2022-08-10] MEDS: DOCUSATE SODIUM 100 MG (COLACE) CAP PO SCH (21:05)
[2022-08-10] MEDS: MILK OF MAGNESIA 400 MG/5 ML 30 ML UDC PO PRN (21:05)
[2022-08-11] MEDS: MEROPENEM 500 MG in NS (IVPB) 100 ML IV SCH ×4 (00:43→23:52)
[2022-08-11] MEDS: inSUlin ASPART (NovoLOG) 1 UNIT/0.01 ML (CHARGE PER UNIT) SC SCH ×4 (05:32→20:28)
[2022-08-11 07:00] VITALS: BP 180/81
--- NOTE | 2022-08-11 08:12 | Occupational Ther Daily Note ---
OT Current Status-Daily Note Subjective Confused, pulled IV lines out during night Mental Status/Objective Patient Orientation: Person, Confused Attachments: Oxygen ADL-Treatment ADLS are CGA w/ VC for safety and use of ADS Therapy Code Descriptions/Definitions Functional [place] Measure: 0=Not Assessed/NA 4=Minimal Assistance 1=Total Assistance 5=Supervision or Setup 2=Maximal Assistance 6=Modified [place] 3=Moderate Assistance 7=Complete IndependenceSCALE: Activities may be completed with or without assistive devices. 7-Xyuwhjdier-tvfwbob completes the activity by him/herself with no assistance from a helper. 5-Set-up or Clean-up Assistance-helper sets up or cleans up; patient completes activity. [place] assists only prior to or following the activity. 4-Supervision or Touching Assistance-helper provides verbal cues and/or touching/steadying and/or contact guard assistance as patient completes activity. Assistance may be provided throughout the activity or intermittently. 3-Partial/Moderate Assistance-helper does LESS THAN HALF the effort. [place] lifts, holds or supports trunk or limbs, but provides less than half the effort. 2-Substantial/Maximal Assistance-helper does MORE THAN HALF the effort. [place] lifts or holds trunk or limbs and provides more than half the effort. 5-Kybgqifnz-cvmzmb does ALL the effort. Patient does none of the effort to complete the activity. Or, the assistance of 2 or more helpers is required for the patient to complete the activity. If activity was not attempted, code reason: 7-Patient Refused. 9-Not Applicable-not attempted and the patient did not perform the activity before the current illness, exacerbation or injury. 10-Not Attempted due to Environmental Limitations-(lack of equipment, weather restraints, etc.). 88-Not Attempted due to Medical Conditions or Safety Concerns. Other Treatment Session focus for BUE strength and activity tolerance, patient completed 3x10 sets of elbow flex/ext, shoulder flex/ext, abduction with red medium resistance band, knots tied for hand placement. Patietn to count for breath support Education OT Patient Education: Correct positioning, Exercise program, Instructions to caregiver (daughter present), Progress toward Goal/Update tx plan, Purpose of tx/functional activities, Safety issues Teaching Recipient: Patient, Primary Caregiver, Family Teaching Methods: Handout, Discussion Response to Teaching: Verbalize Understanding, Return Demonstration OT Short Term Goals Short Term Goals Eatin Oral hygiene: 6 Toileting hygiene: 6 Shower/bathe self: 4 Upper body dressin Lower body dressin Putting on/taking off footwear: 6 OT Plant Specialist Goals Plant Specialist Goals Time Frame: Aug 19, 2022 Acute change in mental status: 0 Inattention: 0 Disorganized thinkin Altered level of consciousness: 0 1=Demonstrate adherence to instructed precautions during ADL tasks. 2=Patient will verbalize/demonstrate understanding of assistive devices/modifications for ADL. 3=Patient will improve strength/tolerance for activity to enable patient to perform ADL's. OT Education/Plan Discharge Recommendations Plan/Recommendations: Continue POC Treatment Plan/Plan of Care Patient would benefit from OT for education, treatment and training to promote independence in ADL's, mobility, safety and/or upper extremity function for ADL's. Plan of Care: ADL Retraining, Functional Mobility, Group Exercise/Act as Ind, UE Funct Exercise/Act Treatment Duration: Sep 02, 2022 Frequency: 5 times per week Estimated Hrs Per Day: .25 hour per day Rehab Potential: Fair Time Start Time: 07:55 Stop Time: 08:18 DATE: Aug 11, 2022 Total Time Billed (hr/min): 23 Billed Treatment Time EX 23min RAFIA WYLIE OT Aug 11, 2022 08:12
[2022-08-11] MEDS: eZETimibe 10 MG (ZETIA) TABLET PO SCH (08:34)
[2022-08-11] MEDS: GEMFIBROZIL 600 MG (LOPID) TAB PO SCH ×2 (08:34→20:40)
[2022-08-11] MEDS: DOCUSATE SODIUM 100 MG (COLACE) CAP PO SCH ×2 (08:34→20:40)
[2022-08-11] MEDS: SENNOSIDES 8.6 MG (SENOKOT) TAB PO SCH ×2 (08:34→20:40)
[2022-08-11] MEDS: TIMOLOL MALEATE 0.5% 5 ML (TIMOPTIC) BTL OU SCH ×2 (08:35→20:41)
--- NOTE | 2022-08-11 10:06 | Physical Therapy Daily Note ---
PT Daily Note-Current Subjective Patient more alert and oriented on this date. Family present Pain Section J - Health Conditions 1. Rarely or not at all 2. Occasionally 3. Frequently 4. Almost constantly 8. Unable to answer Pain Effect on Sleep: 1 Pain Interference with Therapy: 1 Pain Interference w/Day-to-Day: 1 Mental Status Patient Orientation: Normal For Age Attachments: Oxygen, IV Transfers SCALE: Activities may be completed with or without assistive devices. 2-Mopmfuzuxk-tokslzv completes the activity by him/herself with no assistance from a helper. 5-Set-up or Clean-up Assistance-helper sets up or cleans up; patient completes activity. [place] assists only prior to or following the activity. 4-Supervision or Touching Assistance-helper provides verbal cues and/or touching/steadying and/or contact guard assistance as patient completes activity. Assistance may be provided throughout the activity or intermittently. 3-Partial/Moderate Assistance-helper does LESS THAN HALF the effort. [place] lifts, holds or supports trunk or limbs, but provides less than half the effort. 2-Substantial/Maximal Assistance-helper does MORE THAN HALF the effort. [place] lifts or holds trunk or limbs and provides more than half the effort. 5-Mmbagobiq-dfabaj does ALL the effort. Patient does none of the effort to complete the activity. Or, the assistance of 2 or more helpers is required for the patient to complete the activity. If activity was not attempted, code reason: 7-Patient Refused. 9-Not Applicable-not attempted and the patient did not perform the activity before the current illness, exacerbation or injury. 10-Not Attempted due to Environmental Limitations-(lack of equipment, weather restraints, etc.). 88-Not Attempted due to Medical Conditions or Safety Concerns. Sit to Stand (QC): 4 Chair/Bcx-ed-Hwvll Xfer(QC): 4 Gait Training Distance: 250' Walk 10 feet (QC): 4 Walk 50 ft with 2 Turns(QC): 4 Walk 150 ft (QC): 4 Gait Assistive Device: FWW safe and functional with no deviation Exercises Seated Therapy Exercises: Ankle pumps, Long arc quads Seated Reps: 15 Assessment Patient tolerated treatment well and remains up in recliner with needs met. PT to continue to increase activity as tolerated by patient. PT Hunter Goals Alf Goals PT Hunter Goals Time Frame: Sep 02, 2022 Roll Left & Right (QC): 6 Sit to Lying (QC): 6 Lying-Sitting on Side/Bed(QC): 6 Sit to Stand (QC): 6 Chair/Enp-qr-Pnlep Xfer(QC): 6 Toilet Transfer (QC): 6 Car Transfer (QC): 6 Does the Patient Walk: Yes Walk 10 feet (QC): 5 Walk 50ft with 2 Turns (QC): 5 Walk 150 ft (QC): 5 Walking 10ft on Uneven Surface: 5 1 Step (curb) (QC): 4 4 Steps (QC): 4 12 Steps (QC): 9 Picking up an Object (QC): 6 Wheel 50 feet with 2 turns (QC: 9 Type: N/A Wheel 150 feet: 9 Type: N/A PT Plan Treatment/Plan Treatment Plan: Continue Plan of Care Treatment Plan: Bed Mobility, Education, Functional Activity Jose David, Functional Strength, Gait, Safety, Therapeutic Exercise, Transfers Treatment Duration: Sep 02, 2022 Frequency: 6 times per week Estimated Hrs Per Day: .25 hour per day Patient and/or Family Agrees t: Yes Time Time In: 902 Time Out: 918 DATE: Aug 11, 2022 Total Billed Treatment Time: 16 Total Billed Treatment 1 visit FA 16 min ANASTASIA VINCENT PT Aug 11, 2022 10:06
--- NOTE | 2022-08-11 12:24 | Progress Note - Hospitalist ---
Subjective HPI/CC On Admission Date Seen by Provider: Aug 11, 2022 Subjective/Events-last exam Pt reports doing well. Pulled out central line overnight and PIV infiltrated. Discussed with RN to replace if secondary line isn't flushing. RN providing warm blankets to infiltrated IV. Reviewed blood culture results with her and her son. Objective Exam Vital Signs Vital Signs Date Time Temp Pulse Resp B/P (MAP) Pulse Ox O2 Delivery O2 Flow Rate FiO2 08/11/22 09:00 Room Air 08/11/22 07:00 78 08/11/22 07:00 36.5 20 180/81 (114) 91 08/10/22 21:00 2.00 Capillary Refill : General Appearance: No Apparent Distress, Chronically ill Respiratory: Lungs Clear, No Respiratory Distress Cardiovascular: Regular Rate, Rhythm, No Murmur Neurologic/Psychiatric: Alert, Oriented x3 Results/Procedures Lab Patient resulted labs reviewed. Assessment/Plan Assessment and Plan Assess & Plan/Chief Complaint Pyelonephritis Gram negative bacteremia Continue IV merrem Repeat blood culture negative on repeat HTN T2DM HLD Gout Sliding scale insulin Home meds as able Obesity DVT prophylaxis: BRITTNEY Salmon MD Aug 11, 2022 12:24
[2022-08-11] MEDS ORDERED: hydrALAZINE (APESOLINE) 20 MG/ML VIAL IV PRN (12:30)
[2022-08-11 20:08] VITALS: BP 128/60
[2022-08-11] MEDS: ASPIRIN E.C. 81 MG (ECOTRIN) TAB PO SCH (20:40)
[2022-08-11] MEDS: ALLOPURINOL 300 MG (ZYLOPRIM) TAB PO SCH (20:40)
[2022-08-11] MEDS: ENOXAPARIN 40 MG/0.4 ML (LOVENOX) SYR SC SCH (20:40)
[2022-08-11] MEDS: MILK OF MAGNESIA 400 MG/5 ML 30 ML UDC PO PRN (22:47)
[2022-08-11] MEDS: MELATONIN 3 MG TABLET PO PRN (23:52)
[2022-08-12] MEDS: inSUlin ASPART (NovoLOG) 1 UNIT/0.01 ML (CHARGE PER UNIT) SC SCH ×4 (06:12→20:44)
[2022-08-12 08:06] VITALS: BP 112/69
--- NOTE | 2022-08-12 08:29 | Physical Therapy Daily Note ---
PT Daily Note-Current Subjective Pt reports that she had a good night. She is feeling better day by day. Pain Section J - Health Conditions 1. Rarely or not at all 2. Occasionally 3. Frequently 4. Almost constantly 8. Unable to answer Pain Effect on Sleep: 1 Pain Interference with Therapy: 1 Pain Interference w/Day-to-Day: 1 Mental Status Patient Orientation: Person, Place, Time Transfers SCALE: Activities may be completed with or without assistive devices. 3-Vmjjpvnmnz-jkkdgxb completes the activity by him/herself with no assistance from a helper. 5-Set-up or Clean-up Assistance-helper sets up or cleans up; patient completes activity. [place] assists only prior to or following the activity. 4-Supervision or Touching Assistance-helper provides verbal cues and/or touching/steadying and/or contact guard assistance as patient completes activity. Assistance may be provided throughout the activity or intermittently. 3-Partial/Moderate Assistance-helper does LESS THAN HALF the effort. [place] lifts, holds or supports trunk or limbs, but provides less than half the effort. 2-Substantial/Maximal Assistance-helper does MORE THAN HALF the effort. [place] lifts or holds trunk or limbs and provides more than half the effort. 4-Cyuhogmgy-ywosws does ALL the effort. Patient does none of the effort to complete the activity. Or, the assistance of 2 or more helpers is required for the patient to complete the activity. If activity was not attempted, code reason: 7-Patient Refused. 9-Not Applicable-not attempted and the patient did not perform the activity before the current illness, exacerbation or injury. 10-Not Attempted due to Environmental Limitations-(lack of equipment, weather restraints, etc.). 88-Not Attempted due to Medical Conditions or Safety Concerns. Sit to Lying (QC): 4 Lying to Sitting/Side of Bed(Q: 4 Chair/Yzr-oh-Wwccy Xfer(QC): 4 Gait Training Does the Patient Walk?: Yes Ambulate in room with furniture walking and CGA. Pt demonstrated appropriate de cision making and safety moving about the room. Educated on safe turns and how to use furniture to assist with stability. Discussed slowing down and assessing her next move to improve safety and reduce fall risk. Ambulate 250ft on room air, FWW and SBA. Pt had no loss of balance. Talked about pacing and controlled breathing. Pt demonstrated no physical sing of SOB. She did not feeling a bit winded after her walk. Exercises Seated Therapy Exercises: Ankle pumps, Long arc quads Seated Reps: 20 Assessment Pt progressing with mobility and endurance. She will benefit from continued PT to promote safety and functional independence. PT Advertising Representative Goals Chcf Goals PT Advertising Representative Goals Time Frame: Sep 02, 2022 Roll Left & Right (QC): 6 Sit to Lying (QC): 6 Lying-Sitting on Side/Bed(QC): 6 Sit to Stand (QC): 6 Chair/Jie-le-Tlhsm Xfer(QC): 6 Toilet Transfer (QC): 6 Car Transfer (QC): 6 Does the Patient Walk: Yes Walk 10 feet (QC): 5 Walk 50ft with 2 Turns (QC): 5 Walk 150 ft (QC): 5 Walking 10ft on Uneven Surface: 5 1 Step (curb) (QC): 4 4 Steps (QC): 4 12 Steps (QC): 9 Picking up an Object (QC): 6 Wheel 50 feet with 2 turns (QC: 9 Type: N/A Wheel 150 feet: 9 Type: N/A PT Plan Treatment/Plan Treatment Plan: Continue Plan of Care Treatment Plan: Bed Mobility, Education, Functional Activity Jose David, Functional Strength, Gait, Safety, Therapeutic Exercise, Transfers Treatment Duration: Sep 02, 2022 Frequency: 6 times per week Estimated Hrs Per Day: .25 hour per day Patient and/or Family Agrees t: Yes Time Time In: 814 Time Out: 829 DATE: Aug 12, 2022 Total Billed Treatment Time: 15 Total Billed Treatment visit, ex 5 min, gait 10 min MIKY DIOR PT Aug 12, 2022 08:29
[2022-08-12] MEDS: GEMFIBROZIL 600 MG (LOPID) TAB PO SCH ×2 (08:52→20:44)
[2022-08-12] MEDS: DOCUSATE SODIUM 100 MG (COLACE) CAP PO SCH ×2 (08:52→20:44)
[2022-08-12] MEDS: eZETimibe 10 MG (ZETIA) TABLET PO SCH (08:52)
[2022-08-12] MEDS: TIMOLOL MALEATE 0.5% 5 ML (TIMOPTIC) BTL OU SCH ×2 (08:52→20:45)
[2022-08-12] MEDS: MEROPENEM 500 MG in NS (IVPB) 100 ML IV SCH ×2 (08:52→16:48)
[2022-08-12] MEDS: SENNOSIDES 8.6 MG (SENOKOT) TAB PO SCH ×2 (08:52→20:44)
[2022-08-12 19:35] VITALS: BP 147/66
[2022-08-12] MEDS: ENOXAPARIN 40 MG/0.4 ML (LOVENOX) SYR SC SCH (20:44)
[2022-08-12] MEDS: ASPIRIN E.C. 81 MG (ECOTRIN) TAB PO SCH (20:44)
[2022-08-12] MEDS: ALLOPURINOL 300 MG (ZYLOPRIM) TAB PO SCH (20:44)
[2022-08-12] MEDS: MELATONIN 3 MG TABLET PO PRN (22:30)
[2022-08-13] MEDS: MEROPENEM 500 MG in NS (IVPB) 100 ML IV SCH ×3 (00:14→15:47)
[2022-08-13 07:31] VITALS: BP 136/84
[2022-08-13] MEDS: inSUlin ASPART (NovoLOG) 1 UNIT/0.01 ML (CHARGE PER UNIT) SC SCH ×4 (07:50→20:34)
[2022-08-13] MEDS: SENNOSIDES 8.6 MG (SENOKOT) TAB PO SCH ×2 (08:24→20:33)
[2022-08-13] MEDS: eZETimibe 10 MG (ZETIA) TABLET PO SCH (08:24)
[2022-08-13] MEDS: TIMOLOL MALEATE 0.5% 5 ML (TIMOPTIC) BTL OU SCH ×2 (08:24→20:34)
[2022-08-13] MEDS: GEMFIBROZIL 600 MG (LOPID) TAB PO SCH ×2 (08:24→20:33)
[2022-08-13] MEDS: DOCUSATE SODIUM 100 MG (COLACE) CAP PO SCH ×2 (08:24→20:33)
[2022-08-13 20:22] VITALS: BP 143/63
[2022-08-13] MEDS: ALLOPURINOL 300 MG (ZYLOPRIM) TAB PO SCH (20:33)
[2022-08-13] MEDS: ASPIRIN E.C. 81 MG (ECOTRIN) TAB PO SCH (20:33)
[2022-08-13] MEDS: ENOXAPARIN 40 MG/0.4 ML (LOVENOX) SYR SC SCH (20:33)
[2022-08-13] MEDS: MELATONIN 3 MG TABLET PO PRN (22:26)
[2022-08-14] MEDS: MEROPENEM 500 MG in NS (IVPB) 100 ML IV SCH ×4 (00:24→23:22)
[2022-08-14] MEDS: inSUlin ASPART (NovoLOG) 1 UNIT/0.01 ML (CHARGE PER UNIT) SC SCH ×4 (05:15→20:35)
[2022-08-14 07:56] VITALS: BP 141/63
[2022-08-14] MEDS: DOCUSATE SODIUM 100 MG (COLACE) CAP PO SCH ×2 (08:53→20:30)
[2022-08-14] MEDS: GEMFIBROZIL 600 MG (LOPID) TAB PO SCH ×2 (08:53→20:30)
[2022-08-14] MEDS: eZETimibe 10 MG (ZETIA) TABLET PO SCH (08:53)
[2022-08-14] MEDS: SENNOSIDES 8.6 MG (SENOKOT) TAB PO SCH ×2 (08:53→20:30)
[2022-08-14] MEDS: TIMOLOL MALEATE 0.5% 5 ML (TIMOPTIC) BTL OU SCH ×2 (08:54→20:31)
--- NOTE | 2022-08-14 10:33 | Physical Therapy Daily Note ---
PT Daily Note-Current Subjective Patient reports she is feeling much better today. Agrees to PT. Pain Section J - Health Conditions 1. Rarely or not at all 2. Occasionally 3. Frequently 4. Almost constantly 8. Unable to answer Pain Effect on Sleep: 1 Pain Interference with Therapy: 1 Pain Interference w/Day-to-Day: 1 Mental Status Patient Orientation: Normal For Age Attachments: Oxygen, IV Transfers SCALE: Activities may be completed with or without assistive devices. 9-Sjgsgoliuy-ffrudyb completes the activity by him/herself with no assistance from a helper. 5-Set-up or Clean-up Assistance-helper sets up or cleans up; patient completes activity. [place] assists only prior to or following the activity. 4-Supervision or Touching Assistance-helper provides verbal cues and/or touching/steadying and/or contact guard assistance as patient completes activity. Assistance may be provided throughout the activity or intermittently. 3-Partial/Moderate Assistance-helper does LESS THAN HALF the effort. [place] lifts, holds or supports trunk or limbs, but provides less than half the effort. 2-Substantial/Maximal Assistance-helper does MORE THAN HALF the effort. [place] lifts or holds trunk or limbs and provides more than half the effort. 0-Pijkwvalx-ymivqs does ALL the effort. Patient does none of the effort to complete the activity. Or, the assistance of 2 or more helpers is required for the patient to complete the activity. If activity was not attempted, code reason: 7-Patient Refused. 9-Not Applicable-not attempted and the patient did not perform the activity before the current illness, exacerbation or injury. 10-Not Attempted due to Environmental Limitations-(lack of equipment, weather restraints, etc.). 88-Not Attempted due to Medical Conditions or Safety Concerns. Sit to Stand (QC): 5 Gait Training Distance: 500' Walk 10 feet (QC): 5 Walk 50 ft with 2 Turns(QC): 5 Walk 150 ft (QC): 5 Gait Assistive Device: FWW safe and functional with no deviation Exercises Seated Therapy Exercises: Ankle pumps, Long arc quads, Hip flexion Seated Reps: 15 (x 2 sets) Assessment Patient tolerated increase in activity on this date. Patient progressing with treatment plan. PT Inside Contractor Sales Goals Inside Contractor Sales Goals PT Inside Contractor Sales Goals Time Frame: Sep 02, 2022 Roll Left & Right (QC): 6 Sit to Lying (QC): 6 Lying-Sitting on Side/Bed(QC): 6 Sit to Stand (QC): 6 Chair/Sii-qh-Njlyx Xfer(QC): 6 Toilet Transfer (QC): 6 Car Transfer (QC): 6 Does the Patient Walk: Yes Walk 10 feet (QC): 5 Walk 50ft with 2 Turns (QC): 5 Walk 150 ft (QC): 5 Walking 10ft on Uneven Surface: 5 1 Step (curb) (QC): 4 4 Steps (QC): 4 12 Steps (QC): 9 Picking up an Object (QC): 6 Wheel 50 feet with 2 turns (QC: 9 Type: N/A Wheel 150 feet: 9 Type: N/A PT Plan Treatment/Plan Treatment Plan: Continue Plan of Care Treatment Plan: Bed Mobility, Education, Functional Activity Jose David, Functional Strength, Gait, Safety, Therapeutic Exercise, Transfers Treatment Duration: Sep 02, 2022 Frequency: 6 times per week Estimated Hrs Per Day: .25 hour per day Patient and/or Family Agrees t: Yes Time Time In: 910 Time Out: 933 DATE: Aug 14, 2022 Total Billed Treatment Time: 23 Total Billed Treatment 1 visit FA x 2 23 min ANASTASIA VINCENT PT Aug 14, 2022 10:33
--- NOTE | 2022-08-14 11:44 | Occupational Ther Daily Note ---
OT Current Status-Daily Note Subjective UP IN RECLINER W/ FAMILY VISITING Mental Status/Objective Patient Orientation: Situation Attachments: Oxygen ADL-Treatment Therapy Code Descriptions/Definitions Functional [place] Measure: 0=Not Assessed/NA 4=Minimal Assistance 1=Total Assistance 5=Supervision or Setup 2=Maximal Assistance 6=Modified [place] 3=Moderate Assistance 7=Complete IndependenceSCALE: Activities may be completed with or without assistive devices. 8-Rfxifodzgv-efrkvmo completes the activity by him/herself with no assistance from a helper. 5-Set-up or Clean-up Assistance-helper sets up or cleans up; patient completes activity. [place] assists only prior to or following the activity. 4-Supervision or Touching Assistance-helper provides verbal cues and/or touching/steadying and/or contact guard assistance as patient completes activity. Assistance may be provided throughout the activity or intermittently. 3-Partial/Moderate Assistance-helper does LESS THAN HALF the effort. [place] lifts, holds or supports trunk or limbs, but provides less than half the effort. 2-Substantial/Maximal Assistance-helper does MORE THAN HALF the effort. [place] lifts or holds trunk or limbs and provides more than half the effort. 3-Btxjgcvxx-hgxxsu does ALL the effort. Patient does none of the effort to comp lete the activity. Or, the assistance of 2 or more helpers is required for the patient to complete the activity. If activity was not attempted, code reason: 7-Patient Refused. 9-Not Applicable-not attempted and the patient did not perform the activity before the current illness, exacerbation or injury. 10-Not Attempted due to Environmental Limitations-(lack of equipment, weather restraints, etc.). 88-Not Attempted due to Medical Conditions or Safety Concerns. Eating (QC): 6 Oral Hygiene (QC): 5 (STANDING IN BATHROOM W/ 02 AND FWW) Shower/Bathe Self (QC): 7 Upper Body Dressing (QC): 5 Lower Body Dressing (QC): 5 On/Off Footwear: 5 Toileting Hygiene (QC): 5 Toilet Transfer (QC): 4 REQUIRES ASSISTANCE WITH 02 TUBING AND FWW,DELAYED SAFETY PROCESSING Other Treatment THERABAND EXERCISES OF SHOULDER AN ELBOW FOR BUE STRENGTH AND PROGRESSION OF TOLERANCE OF ACTIVITY TO RETURN HOME. GRANDSONS PRESENT IN ROOM AND MOTIVATED TO ASSIST PATIENT IN CONTINUATION OF HEP Education OT Patient Education: Correct positioning, Disease process, Energy conservation, Safety issues, Transfer techniques, Use of adapted equipment Teaching Recipient: Patient, Family Teaching Methods: Demonstration, Discussion Response to Teaching: Verbalize Understanding OT Short Term Goals Short Term Goals Eatin Oral hygiene: 6 Toileting hygiene: 6 Shower/bathe self: 4 Upper body dressin Lower body dressin Putting on/taking off footwear: 6 OT Crane Ladle Person Goals Crane Ladle Person Goals Time Frame: Aug 19, 2022 Acute change in mental status: 0 Inattention: 0 Disorganized thinkin Altered level of consciousness: 0 1=Demonstrate adherence to instructed precautions during ADL tasks. 2=Patient will verbalize/demonstrate understanding of assistive devices/modifications for ADL. 3=Patient will improve strength/tolerance for activity to enable patient to perform ADL's. OT Education/Plan Problem List/Assessment Assessment: Decreased Activ Tolerance, Decreased Safety Aware, Decreased UE Strength, Impaired Self-Care Skills Discharge Recommendations Plan/Recommendations: Continue POC Treatment Plan/Plan of Care Patient would benefit from OT for education, treatment and training to promote independence in ADL's, mobility, safety and/or upper extremity function for ADL's. Plan of Care: ADL Retraining, Functional Mobility, Group Exercise/Act as Ind, UE Funct Exercise/Act Treatment Duration: Sep 02, 2022 Frequency: 5 times per week Estimated Hrs Per Day: .25 hour per day Rehab Potential: Fair REMAINS UP IN CHAIR W/ FAMILY PRESENT Time Start Time: 11:30 Stop Time: 11:45 DATE: Aug 14, 2022 Total Time Billed (hr/min): 15 Billed Treatment Time EX 15 MIN RAFIA WYLIE OT Aug 14, 2022 11:44
--- NOTE | 2022-08-14 17:01 | Progress Note - Hospitalist ---
Subjective HPI/CC On Admission Date Seen by Provider: Aug 14, 2022 Time Seen by Provider: 12:40 Subjective/Events-last exam She is doing well. She is sitting in her chair. She has been working with therapy. Her appetite is increasing. Objective Exam Vital Signs Vital Signs Date Time Temp Pulse Resp B/P (MAP) Pulse Ox O2 Delivery O2 Flow Rate FiO2 08/14/22 09:19 Nasal Cannula 2.00 08/14/22 07:56 36.7 68 18 141/63 (89) 95 Capillary Refill : General Appearance: No Apparent Distress, Obese Respiratory: Lungs Clear, No Respiratory Distress Cardiovascular: Regular Rate, Rhythm, No Murmur Gastrointestinal: Normal Bowel Sounds, Soft Extremity: Normal Inspection, Pedal Edema Neurologic/Psychiatric: Alert, Normal Mood/Affect Skin: Normal Color, Warm/Dry Results/Procedures Lab Patient resulted labs reviewed. Assessment/Plan Assessment and Plan Assess & Plan/Chief Complaint Pyelonephritis ESBL E coli bacteremia Continue IV merrem Repeat blood culture negative HTN T2DM HLD Gout Obesity Debility Sliding scale insulin Home meds as able PT/OT DVT prophylaxis: Lovenox Diagnosis/Problems Diagnosis/Problems (1) Infection due to ESBL-producing Escherichia coli Status: Acute (2) Pyelonephritis Status: Acute (3) Gram-negative bacteremia Status: Acute JESS PAGAN MD Aug 14, 2022 17:01
[2022-08-14 19:43] VITALS: BP 137/63
[2022-08-14] MEDS: MELATONIN 3 MG TABLET PO PRN (20:30)
[2022-08-14] MEDS: ALLOPURINOL 300 MG (ZYLOPRIM) TAB PO SCH (20:30)
[2022-08-14] MEDS: ENOXAPARIN 40 MG/0.4 ML (LOVENOX) SYR SC SCH (20:30)
[2022-08-14] MEDS: ASPIRIN E.C. 81 MG (ECOTRIN) TAB PO SCH (20:30)
[2022-08-15] MEDS: inSUlin ASPART (NovoLOG) 1 UNIT/0.01 ML (CHARGE PER UNIT) SC SCH ×4 (06:18→21:25)
[2022-08-15 07:56] VITALS: BP 148/66
[2022-08-15] MEDS: TIMOLOL MALEATE 0.5% 5 ML (TIMOPTIC) BTL OU SCH ×2 (08:37→20:10)
[2022-08-15] MEDS: MEROPENEM 500 MG in NS (IVPB) 100 ML IV SCH ×3 (08:37→23:14)
[2022-08-15] MEDS: eZETimibe 10 MG (ZETIA) TABLET PO SCH (08:38)
[2022-08-15] MEDS: SENNOSIDES 8.6 MG (SENOKOT) TAB PO SCH ×2 (08:38→20:10)
[2022-08-15] MEDS: GEMFIBROZIL 600 MG (LOPID) TAB PO SCH ×2 (08:38→20:10)
[2022-08-15] MEDS: DOCUSATE SODIUM 100 MG (COLACE) CAP PO SCH ×2 (08:38→20:10)
--- NOTE | 2022-08-15 10:57 | Occupational Ther Daily Note ---
OT Current Status-Daily Note Subjective Up in recliner agreeable to OT Mental Status/Objective Patient Orientation: Situation Attachments: IV, Oxygen ADL-Treatment Toileting, hand and face grooming at sink Therapy Code Descriptions/Definitions Functional [place] Measure: 0=Not Assessed/NA 4=Minimal Assistance 1=Total Assistance 5=Supervision or Setup 2=Maximal Assistance 6=Modified [place] 3=Moderate Assistance 7=Complete IndependenceSCALE: Activities may be completed with or without assistive devices. 7-Qqmbrjzfbu-kfnxrhx completes the activity by him/herself with no assistance from a helper. 5-Set-up or Clean-up Assistance-helper sets up or cleans up; patient completes activity. [place] assists only prior to or following the activity. 4-Supervision or Touching Assistance-helper provides verbal cues and/or touching/steadying and/or contact guard assistance as patient completes activity. Assistance may be provided throughout the activity or intermittently. 3-Partial/Moderate Assistance-helper does LESS THAN HALF the effort. [place] lifts, holds or supports trunk or limbs, but provides less than half the effort. 2-Substantial/Maximal Assistance-helper does MORE THAN HALF the effort. [place] lifts or holds trunk or limbs and provides more than half the effort. 5-Bprlnttjm-nootss does ALL the effort. Patient does none of the effort to complete the activity. Or, the assistance of 2 or more helpers is required for the patient to complete the activity. If activity was not attempted, code reason: 7-Patient Refused. 9-Not Applicable-not attempted and the patient did not perform the activity before the current illness, exacerbation or injury. 10-Not Attempted due to Environmental Limitations-(lack of equipment, weather restraints, etc.). 88-Not Attempted due to Medical Conditions or Safety Concerns. Eating (QC): 6 Oral Hygiene (QC): 5 Shower/Bathe Self (QC): 7 Upper Body Dressing (QC): 5 Lower Body Dressing (QC): 5 On/Off Footwear: 5 Toileting Hygiene (QC): 5 Toilet Transfer (QC): 5 Goals nearly met, assistance required for safety and AD use Other Treatment Red therapy band 1x10 of 3 BUE exercises for recall w/ diagram directions no VC required Education OT Patient Education: Correct positioning, Exercise program, Modified ADL techniques, Progress toward Goal/Update tx plan, Purpose of tx/functional activities, Reviewed precautions, Rehab process, Safety issues, Transfer techniques, Use of adapted equipment Teaching Recipient: Patient Teaching Methods: Demonstration Response to Teaching: Reinforcement Needed OT Short Term Goals Short Term Goals Eatin Oral hygiene: 6 Toileting hygiene: 6 Shower/bathe self: 4 Upper body dressin Lower body dressin Putting on/taking off footwear: 6 OT Correction Goals Correction Goals Time Frame: Aug 19, 2022 Acute change in mental status: 0 Inattention: 0 Disorganized thinkin Altered level of consciousness: 0 1=Demonstrate adherence to instructed precautions during ADL tasks. 2=Patient will verbalize/demonstrate understanding of assistive devices/modifications for ADL. 3=Patient will improve strength/tolerance for activity to enable patient to perform ADL's. OT Education/Plan Problem List/Assessment Assessment: Decreased Activ Tolerance, Decreased Safety Aware Discharge Recommendations Plan/Recommendations: Continue POC Treatment Plan/Plan of Care Patient would benefit from OT for education, treatment and training to promote independence in ADL's, mobility, safety and/or upper extremity function for ADL's. Plan of Care: ADL Retraining, Functional Mobility, Group Exercise/Act as Ind, UE Funct Exercise/Act Treatment Duration: Sep 02, 2022 Frequency: 5 times per week Estimated Hrs Per Day: .25 hour per day Rehab Potential: Fair all needs met Time Start Time: 09:15 Stop Time: 09:30 DATE: Aug 15, 2022 Total Time Billed (hr/min): 15 Billed Treatment Time ADL 15 min RAFIA WYLIE OT Aug 15, 2022 10:57
--- NOTE | 2022-08-15 14:21 | Physical Therapy Daily Note ---
PT Daily Note-Current Subjective Patient agrees to PT. Pain Section J - Health Conditions 1. Rarely or not at all 2. Occasionally 3. Frequently 4. Almost constantly 8. Unable to answer Pain Effect on Sleep: 1 Pain Interference with Therapy: 1 Pain Interference w/Day-to-Day: 1 Mental Status Patient Orientation: Normal For Age Transfers SCALE: Activities may be completed with or without assistive devices. 5-Hgsncjqovk-itnxebz completes the activity by him/herself with no assistance from a helper. 5-Set-up or Clean-up Assistance-helper sets up or cleans up; patient completes activity. [place] assists only prior to or following the activity. 4-Supervision or Touching Assistance-helper provides verbal cues and/or touching/steadying and/or contact guard assistance as patient completes activity. Assistance may be provided throughout the activity or intermittently. 3-Partial/Moderate Assistance-helper does LESS THAN HALF the effort. [place] lifts, holds or supports trunk or limbs, but provides less than half the effort. 2-Substantial/Maximal Assistance-helper does MORE THAN HALF the effort. [place] lifts or holds trunk or limbs and provides more than half the effort. 8-Gxbotfksq-uzpdnp does ALL the effort. Patient does none of the effort to complete the activity. Or, the assistance of 2 or more helpers is required for the patient to complete the activity. If activity was not attempted, code reason: 7-Patient Refused. 9-Not Applicable-not attempted and the patient did not perform the activity before the current illness, exacerbation or injury. 10-Not Attempted due to Environmental Limitations-(lack of equipment, weather restraints, etc.). 88-Not Attempted due to Medical Conditions or Safety Concerns. Sit to Stand (QC): 6 Chair/Lmf-kr-Exibh Xfer(QC): 6 Toilet Transfer (QC): 6 Gait Training Distance: 500' Walk 10 feet (QC): 5 Walk 50 ft with 2 Turns(QC): 5 Walk 150 ft (QC): 5 Walking 10ft/uneven surface-QC: 5 Gait Assistive Device: FWW safe and functional with no deviation Assessment Patient progressing with treatment plan and will dismiss to home this week with family and home care. Patient highly motivated with progress PT Penitentiary Goals Coat Agent Goals PT Penitentiary Goals Time Frame: Sep 02, 2022 Roll Left & Right (QC): 6 Sit to Lying (QC): 6 Lying-Sitting on Side/Bed(QC): 6 Sit to Stand (QC): 6 Chair/Umb-dq-Mfifw Xfer(QC): 6 Toilet Transfer (QC): 6 Car Transfer (QC): 6 Does the Patient Walk: Yes Walk 10 feet (QC): 5 Walk 50ft with 2 Turns (QC): 5 Walk 150 ft (QC): 5 Walking 10ft on Uneven Surface: 5 1 Step (curb) (QC): 4 4 Steps (QC): 4 12 Steps (QC): 9 Picking up an Object (QC): 6 Wheel 50 feet with 2 turns (QC: 9 Type: N/A Wheel 150 feet: 9 Type: N/A PT Plan Treatment/Plan Treatment Plan: Continue Plan of Care Treatment Plan: Bed Mobility, Education, Functional Activity Jose David, Functional Strength, Gait, Safety, Therapeutic Exercise, Transfers Treatment Duration: Sep 02, 2022 Frequency: 6 times per week Estimated Hrs Per Day: .25 hour per day Patient and/or Family Agrees t: Yes Time Time In: 1345 Time Out: 1400 DATE: Aug 15, 2022 Total Billed Treatment Time: 15 Total Billed Treatment 1 visit FA 15 min ANASTASIA VINCENT PT Aug 15, 2022 14:21
[2022-08-15 20:05] VITALS: BP 144/66
[2022-08-15] MEDS: ALLOPURINOL 300 MG (ZYLOPRIM) TAB PO SCH (20:10)
[2022-08-15] MEDS: MELATONIN 3 MG TABLET PO PRN (20:10)
[2022-08-15] MEDS: ENOXAPARIN 40 MG/0.4 ML (LOVENOX) SYR SC SCH (20:10)
[2022-08-15] MEDS: ASPIRIN E.C. 81 MG (ECOTRIN) TAB PO SCH (20:10)
[2022-08-16] MEDS: inSUlin ASPART (NovoLOG) 1 UNIT/0.01 ML (CHARGE PER UNIT) SC SCH ×4 (06:43→20:14)
[2022-08-16] MEDS: eZETimibe 10 MG (ZETIA) TABLET PO SCH (08:07)
[2022-08-16] MEDS: SENNOSIDES 8.6 MG (SENOKOT) TAB PO SCH ×2 (08:07→20:12)
[2022-08-16] MEDS: DOCUSATE SODIUM 100 MG (COLACE) CAP PO SCH ×2 (08:07→20:12)
[2022-08-16] MEDS: MEROPENEM 500 MG in NS (IVPB) 100 ML IV SCH ×3 (08:07→23:52)
[2022-08-16] MEDS: GEMFIBROZIL 600 MG (LOPID) TAB PO SCH ×2 (08:07→20:12)
[2022-08-16] MEDS: TIMOLOL MALEATE 0.5% 5 ML (TIMOPTIC) BTL OU SCH ×2 (08:08→20:13)
--- NOTE | 2022-08-16 11:50 | Physical Therapy Daily Note ---
PT Daily Note-Current Subjective Patient sitting in chair upon PT arrival, agreeable to treatment but notes she just had a shower and is very tired. Rates pain at 0/10 Pain Section J - Health Conditions 1. Rarely or not at all 2. Occasionally 3. Frequently 4. Almost constantly 8. Unable to answer Pain Effect on Sleep: 1 Pain Interference with Therapy: 1 Pain Interference w/Day-to-Day: 1 Mental Status Patient Orientation: Person, Place, Time, Situation Transfers SCALE: Activities may be completed with or without assistive devices. 2-Jepulfjdtv-etzqcqc completes the activity by him/herself with no assistance from a helper. 5-Set-up or Clean-up Assistance-helper sets up or cleans up; patient completes activity. [place] assists only prior to or following the activity. 4-Supervision or Touching Assistance-helper provides verbal cues and/or touching/steadying and/or contact guard assistance as patient completes activity. Assistance may be provided throughout the activity or intermittently. 3-Partial/Moderate Assistance-helper does LESS THAN HALF the effort. [place] lif ts, holds or supports trunk or limbs, but provides less than half the effort. 2-Substantial/Maximal Assistance-helper does MORE THAN HALF the effort. [place] lifts or holds trunk or limbs and provides more than half the effort. 6-Omouxncns-gkqqgr does ALL the effort. Patient does none of the effort to complete the activity. Or, the assistance of 2 or more helpers is required for the patient to complete the activity. If activity was not attempted, code reason: 7-Patient Refused. 9-Not Applicable-not attempted and the patient did not perform the activity before the current illness, exacerbation or injury. 10-Not Attempted due to Environmental Limitations-(lack of equipment, weather restraints, etc.). 88-Not Attempted due to Medical Conditions or Safety Concerns. Sit to Stand (QC): 6 Chair/Zte-ju-Bmcld Xfer(QC): 6 Gait Training Does the Patient Walk?: Yes Distance: 300 Walk 10 feet (QC): 5 Walk 50 ft with 2 Turns(QC): 5 Walk 150 ft (QC): 5 Assessment Current Status: Fair Progress Patient tolerated treatment poorly compared to yesterdays PT treatment. Patient performs all observed transfers with independence. Patient ambulates 300 feet with FWW, with setup. Patient in chair post treatment with all needs met, nursing notified, call light in reach. 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 Retirement Goals PT Retirement Goals Time Frame: Sep 02, 2022 Roll Left & Right (QC): 6 Sit to Lying (QC): 6 Lying-Sitting on Side/Bed(QC): 6 Sit to Stand (QC): 6 Chair/Wyd-ps-Bvifm Xfer(QC): 6 Toilet Transfer (QC): 6 Car Transfer (QC): 6 Does the Patient Walk: Yes Walk 10 feet (QC): 5 Walk 50ft with 2 Turns (QC): 5 Walk 150 ft (QC): 5 Walking 10ft on Uneven Surface: 5 1 Step (curb) (QC): 4 4 Steps (QC): 4 12 Steps (QC): 9 Picking up an Object (QC): 6 Wheel 50 feet with 2 turns (QC: 9 Type: N/A Wheel 150 feet: 9 Type: N/A PT Plan Treatment/Plan Treatment Plan: Continue Plan of Care Treatment Plan: Bed Mobility, Education, Functional Activity Jose David, Functional Strength, Gait, Safety, Therapeutic Exercise, Transfers Treatment Duration: Sep 02, 2022 Frequency: 6 times per week Estimated Hrs Per Day: .25 hour per day Patient and/or Family Agrees t: Yes Safety Risks/Education Patient Education: Gait Training, Transfer Techniques Teaching Recipient: Patient Teaching Methods: Demonstration, Discussion Response to Teaching: Verbalize Understanding, Return Demonstration Time Time In: 1134 Time Out: 1144 DATE: Aug 16, 2022 Total Billed Treatment Time: 10 Total Billed Treatment Visit, GT MARCELLO ESCUDERO PT Aug 16, 2022 11:50
--- NOTE | 2022-08-16 13:30 | Occupational Ther Daily Note ---
OT Current Status-Daily Note Subjective Up in recliner, agreeable to shower Mental Status/Objective Patient Orientation: Situation Attachments: Oxygen (use of portable 02 tank during shower) ADL-Treatment Therapy Code Descriptions/Definitions Functional [place] Measure: 0=Not Assessed/NA 4=Minimal Assistance 1=Total Assistance 5=Supervision or Setup 2=Maximal Assistance 6=Modified [place] 3=Moderate Assistance 7=Complete IndependenceSCALE: Activities may be completed with or without assistive devices. 4-Yaapwmytyg-egnrmzc completes the activity by him/herself with no assistance from a helper. 5-Set-up or Clean-up Assistance-helper sets up or cleans up; patient completes activity. [place] assists only prior to or following the activity. 4-Supervision or Touching Assistance-helper provides verbal cues and/or touching/steadying and/or contact guard assistance as patient completes activity. Assistance may be provided throughout the activity or intermittently. 3-Partial/Moderate Assistance-helper does LESS THAN HALF the effort. [place] lifts, holds or supports trunk or limbs, but provides less than half the effort. 2-Substantial/Maximal Assistance-helper does MORE THAN HALF the effort. [place] lifts or holds trunk or limbs and provides more than half the effort. 8-Duyqnidxk-yxivob does ALL the effort. Patient does none of the effort to complete the activity. Or, the assistance of 2 or more helpers is required for the patient to complete the activity. If activity was not attempted, code reason: 7-Patient Refused. 9-Not Applicable-not attempted and the patient did not perform the activity before the current illness, exacerbation or injury. 10-Not Attempted due to Environmental Limitations-(lack of equipment, weather restraints, etc.). 88-Not Attempted due to Medical Conditions or Safety Concerns. Eating (QC): 6 Oral Hygiene (QC): 5 Bathing Location: L Arm, R Arm, L Upper Leg, R Upper Leg, L Lower Leg (including foot), R Lower Leg (including foot), Chest, Abdomen, Buttocks, Perineal Area Shower/Bathe Self (QC): 4 Upper Body Dressing (QC): 4 (OT assit with one bra clasp and turning bra around waist) Lower Body Dressing (QC): 5 On/Off Footwear: 5 Toileting Hygiene (QC): 5 Toilet Transfer (QC): 5 Education OT Patient Education: Correct positioning, Energy conservation, Modified ADL techniques, Progress toward Goal/Update tx plan, Purpose of tx/functional activities, Reviewed precautions, Rehab process, Safety issues, Transfer techniques, Use of adapted equipment Teaching Recipient: Patient Teaching Methods: Demonstration, Discussion Response to Teaching: Reinforcement Needed OT Short Term Goals Short Term Goals Eatin Oral hygiene: 6 Toileting hygiene: 6 Shower/bathe self: 4 Upper body dressin Lower body dressin Putting on/taking off footwear: 6 OT Renewable Energy Division Manager Goals Renewable Energy Division Manager Goals Time Frame: Aug 19, 2022 Acute change in mental status: 0 Inattention: 0 Disorganized thinkin Altered level of consciousness: 0 Toileting Hygiene (QC): 6 Shower/Bathe Self (QC): 6 Upper Body Dressing (QC): 6 Lower Body Dressing (QC): 6 On/Off Footwear (QC): 6 1=Demonstrate adherence to instructed precautions during ADL tasks. 2=Patient will verbalize/demonstrate understanding of assistive devices/modifications for ADL. 3=Patient will improve strength/tolerance for activity to enable patient to perform ADL's. OT Education/Plan Problem List/Assessment Assessment: Decreased Activ Tolerance, Impaired I ADL's, Impaired Self-Care Skills Discharge Recommendations Plan/Recommendations: Continue POC Treatment Plan/Plan of Care Patient would benefit from OT for education, treatment and training to promote independence in ADL's, mobility, safety and/or upper extremity function for ADL's. Plan of Care: ADL Retraining, Functional Mobility, Group Exercise/Act as Ind, UE Funct Exercise/Act Treatment Duration: Sep 02, 2022 Frequency: 5 times per week Estimated Hrs Per Day: .25 hour per day Rehab Potential: Fair Time Start Time: 10:40 Stop Time: 11:10 DATE: Aug 16, 2022 Total Time Billed (hr/min): 30 Billed Treatment Time ADL 30 min RAFIA WYLIE OT Aug 16, 2022 13:30
--- NOTE | 2022-08-16 14:10 | Progress Note - Hospitalist ---
Subjective HPI/CC On Admission Date Seen by Provider: Aug 16, 2022 Time Seen by Provider: 09:35 Subjective/Events-last exam She has been up walking. She is doing well. She has no complaints. Objective Exam Vital Signs Vital Signs Date Time Temp Pulse Resp B/P (MAP) Pulse Ox O2 Delivery O2 Flow Rate FiO2 08/16/22 08:25 36.7 64 19 99 Nasal Cannula 2.00 08/15/22 20:05 144/66 (92) Capillary Refill : General Appearance: No Apparent Distress, Obese Respiratory: Lungs Clear, No Respiratory Distress Cardiovascular: Regular Rate, Rhythm, No Murmur Gastrointestinal: Normal Bowel Sounds, Soft Extremity: Normal Inspection, No Pedal Edema Neurologic/Psychiatric: Alert, Normal Mood/Affect Skin: Normal Color, Warm/Dry Results/Procedures Lab Patient resulted labs reviewed. Assessment/Plan Assessment and Plan Assess & Plan/Chief Complaint Pyelonephritis ESBL E coli bacteremia Continue IV merrem Repeat blood culture negative HTN T2DM HLD Gout Obesity Debility Sliding scale insulin Home meds as able PT/OT DVT prophylaxis: Lovenox Diagnosis/Problems Diagnosis/Problems (1) Infection due to ESBL-producing Escherichia coli Status: Acute (2) Pyelonephritis Status: Acute (3) Gram-negative bacteremia Status: Acute JESS PAGAN MD Aug 16, 2022 14:10
[2022-08-16 19:31] VITALS: BP 143/68
[2022-08-16] MEDS: ALLOPURINOL 300 MG (ZYLOPRIM) TAB PO SCH (20:12)
[2022-08-16] MEDS: ASPIRIN E.C. 81 MG (ECOTRIN) TAB PO SCH (20:12)
[2022-08-16] MEDS: ENOXAPARIN 40 MG/0.4 ML (LOVENOX) SYR SC SCH (20:12)
[2022-08-17] MEDS: inSUlin ASPART (NovoLOG) 1 UNIT/0.01 ML (CHARGE PER UNIT) SC SCH ×4 (05:21→21:09)
[2022-08-17] MEDS: DOCUSATE SODIUM 100 MG (COLACE) CAP PO SCH ×2 (08:03→19:25)
[2022-08-17] MEDS: SENNOSIDES 8.6 MG (SENOKOT) TAB PO SCH ×2 (08:03→19:26)
[2022-08-17] MEDS: TIMOLOL MALEATE 0.5% 5 ML (TIMOPTIC) BTL OU SCH ×2 (08:03→19:26)
[2022-08-17] MEDS: eZETimibe 10 MG (ZETIA) TABLET PO SCH (08:03)
[2022-08-17] MEDS: GEMFIBROZIL 600 MG (LOPID) TAB PO SCH ×2 (08:03→19:25)
[2022-08-17] MEDS: MEROPENEM 500 MG in NS (IVPB) 100 ML IV SCH ×3 (08:03→23:52)
[2022-08-17 08:13] VITALS: BP 142/65
--- NOTE | 2022-08-17 10:30 | Physical Therapy Daily Note ---
PT Daily Note-Current Subjective Patient agrees to PT. Pain Section J - Health Conditions 1. Rarely or not at all 2. Occasionally 3. Frequently 4. Almost constantly 8. Unable to answer Pain Effect on Sleep: 1 Pain Interference with Therapy: 1 Pain Interference w/Day-to-Day: 1 Mental Status Patient Orientation: Normal For Age Transfers SCALE: Activities may be completed with or without assistive devices. 9-Sajiraaxej-cfikceq completes the activity by him/herself with no assistance from a helper. 5-Set-up or Clean-up Assistance-helper sets up or cleans up; patient completes activity. [place] assists only prior to or following the activity. 4-Supervision or Touching Assistance-helper provides verbal cues and/or touching/steadying and/or contact guard assistance as patient completes activity. Assistance may be provided throughout the activity or intermittently. 3-Partial/Moderate Assistance-helper does LESS THAN HALF the effort. [place] lifts, holds or supports trunk or limbs, but provides less than half the effort. 2-Substantial/Maximal Assistance-helper does MORE THAN HALF the effort. [place] lifts or holds trunk or limbs and provides more than half the effort. 4-Dxraskdfs-ybkbpe does ALL the effort. Patient does none of the effort to complete the activity. Or, the assistance of 2 or more helpers is required for the patient to complete the activity. If activity was not attempted, code reason: 7-Patient Refused. 9-Not Applicable-not attempted and the patient did not perform the activity before the current illness, exacerbation or injury. 10-Not Attempted due to Environmental Limitations-(lack of equipment, weather restraints, etc.). 88-Not Attempted due to Medical Conditions or Safety Concerns. Roll Left & Right (QC): 6 Sit to Lying (QC): 6 Lying to Sitting/Side of Bed(Q: 6 Sit to Stand (QC): 6 Chair/Mmk-kv-Fgtsk Xfer(QC): 6 Toilet Transfer (QC): 6 Car Transfer (QC): 6 Gait Training Distance: 500' Walk 10 feet (QC): 6 Walk 50 ft with 2 Turns(QC): 6 Walk 150 ft (QC): 6 Walking 10ft/uneven surface-QC: 6 Gait Assistive Device: FWW safe and functional with no deviation Wheelchair Training Wheel 50 ft with 2 turns (QC): 9 Wheel 150 ft (QC): 9 Stair Training Stair Training: Handrails/: 2 handrails #of Steps: 4 1 Step (curb) (QC): 4 4 Steps (QC): 4 12 Steps (QC): 9 Stairs: Pattern: Step to Balance Picking up an Object (QC): 4 Assessment Patient tolerated treatment well and is currently at independent LOF with most gross motor skills. Patient has addressed and attained all functional goals. PT Office Agent Goals Office Agent Goals PT Office Agent Goals Time Frame: Sep 02, 2022 Roll Left & Right (QC): 6 Sit to Lying (QC): 6 Lying-Sitting on Side/Bed(QC): 6 Sit to Stand (QC): 6 Chair/Nlk-gk-Uiyqz Xfer(QC): 6 Toilet Transfer (QC): 6 Car Transfer (QC): 6 Does the Patient Walk: Yes Walk 10 feet (QC): 5 Walk 50ft with 2 Turns (QC): 5 Walk 150 ft (QC): 5 Walking 10ft on Uneven Surface: 5 1 Step (curb) (QC): 4 4 Steps (QC): 4 12 Steps (QC): 9 Picking up an Object (QC): 6 Wheel 50 feet with 2 turns (QC: 9 Type: N/A Wheel 150 feet: 9 Type: N/A PT Plan Treatment/Plan Treatment Plan: Continue Plan of Care Treatment Plan: Bed Mobility, Education, Functional Activity Jose David, Functional Strength, Gait, Safety, Therapeutic Exercise, Transfers Treatment Duration: Sep 02, 2022 Frequency: 6 times per week Estimated Hrs Per Day: .25 hour per day Patient and/or Family Agrees t: Yes Time Time In: 900 Time Out: 924 DATE: Aug 17, 2022 Total Billed Treatment Time: 24 Total Billed Treatment 1 visit FA x 2 24 min ANASTASIA VINCENT PT Aug 17, 2022 10:29
--- NOTE | 2022-08-17 11:33 | Occupational Ther Daily Note ---
OT Current Status-Daily Note Subjective Up in recliner agreeable to OT Pain Numeric Pain Scale: 0-No Pain Mental Status/Objective Patient Orientation: Person, Place, Time, Situation ([place] to return home) Attachments: Oxygen ADL-Treatment Therapy Code Descriptions/Definitions Functional [place] Measure: 0=Not Assessed/NA 4=Minimal Assistance 1=Total Assistance 5=Supervision or Setup 2=Maximal Assistance 6=Modified [place] 3=Moderate Assistance 7=Complete IndependenceSCALE: Activities may be completed with or without assistive devices. 5-Dtcyurfdef-uhyrkwi completes the activity by him/herself with no assistance from a helper. 5-Set-up or Clean-up Assistance-helper sets up or cleans up; patient completes activity. [place] assists only prior to or following the activity. 4-Supervision or Touching Assistance-helper provides verbal cues and/or touching/steadying and/or contact guard assistance as patient completes activity. Assistance may be provided throughout the activity or intermittently. 3-Partial/Moderate Assistance-helper does LESS THAN HALF the effort. [place] lifts, holds or supports trunk or limbs, but provides less than half the effort. 2-Substantial/Maximal Assistance-helper does MORE THAN HALF the effort. [place] lifts or holds trunk or limbs and provides more than half the effort. 5-Rqsnjoiml-pieuup does ALL the effort. Patient does none of the effort to complete the activity. Or, the assistance of 2 or more helpers is required for the patient to complete the activity. If activity was not attempted, code reason: 7-Patient Refused. 9-Not Applicable-not attempted and the patient did not perform the activity be fore the current illness, exacerbation or injury. 10-Not Attempted due to Environmental Limitations-(lack of equipment, weather restraints, etc.). 88-Not Attempted due to Medical Conditions or Safety Concerns. Eating (QC): 6 Oral Hygiene (QC): 6 Shower/Bathe Self (QC): 5 Upper Body Dressing (QC): 5 Lower Body Dressing (QC): 5 On/Off Footwear: 5 Toileting Hygiene (QC): 5 Toilet Transfer (QC): 5 Other Treatment Instruction in use of call center supervisor for safety and functional activity Education OT Patient Education: Correct positioning, Energy conservation, Modified ADL techniques, Progress toward Goal/Update tx plan, Purpose of tx/functional activities, Reviewed precautions, Rehab process, Safety issues, Transfer techniques, Use of adapted equipment Teaching Recipient: Patient Teaching Methods: Demonstration, Discussion Response to Teaching: Verbalize Understanding, Return Demonstration, Reinforcement Needed OT Short Term Goals Short Term Goals Eatin Oral hygiene: 6 Toileting hygiene: 6 Shower/bathe self: 4 Upper body dressin Lower body dressin Putting on/taking off footwear: 6 OT Stock Feeder Goals Stock Feeder Goals Time Frame: Aug 19, 2022 Acute change in mental status: 0 Inattention: 0 Disorganized thinkin Altered level of consciousness: 0 Toileting Hygiene (QC): 6 Shower/Bathe Self (QC): 6 Upper Body Dressing (QC): 6 Lower Body Dressing (QC): 6 On/Off Footwear (QC): 6 1=Demonstrate adherence to instructed precautions during ADL tasks. 2=Patient will verbalize/demonstrate understanding of assistive devices/modifications for ADL. 3=Patient will improve strength/tolerance for activity to enable patient to perform ADL's. OT Education/Plan Problem List/Assessment Assessment: Decreased Activ Tolerance, Decreased Safety Aware, Impaired Funct Balance, Impaired Self-Care Skills Discharge Recommendations Plan/Recommendations: Continue POC Treatment Plan/Plan of Care Patient would benefit from OT for education, treatment and training to promote independence in ADL's, mobility, safety and/or upper extremity function for ADL's. Plan of Care: ADL Retraining, Functional Mobility, Group Exercise/Act as Ind, UE Funct Exercise/Act Treatment Duration: Sep 02, 2022 Frequency: 5 times per week Estimated Hrs Per Day: .25 hour per day Agreement: Yes Rehab Potential: Fair Time Start Time: 10:50 Stop Time: 11:07 DATE: Aug 17, 2022 Total Time Billed (hr/min): 17 Billed Treatment Time FA 1 17 min RAFIA WYLIE OT Aug 17, 2022 11:33
[2022-08-17] MEDS: ENOXAPARIN 40 MG/0.4 ML (LOVENOX) SYR SC SCH (19:25)
[2022-08-17] MEDS: ASPIRIN E.C. 81 MG (ECOTRIN) TAB PO SCH (19:25)
[2022-08-17] MEDS: ALLOPURINOL 300 MG (ZYLOPRIM) TAB PO SCH (19:26)
[2022-08-17 20:23] VITALS: BP 127/59
[2022-08-18] MEDS: inSUlin ASPART (NovoLOG) 1 UNIT/0.01 ML (CHARGE PER UNIT) SC SCH ×2 (06:34→11:31)
[2022-08-18 08:00] VITALS: BP 164/71
[2022-08-18] MEDS: DOCUSATE SODIUM 100 MG (COLACE) CAP PO SCH (09:08)
[2022-08-18] MEDS: GEMFIBROZIL 600 MG (LOPID) TAB PO SCH (09:09)
[2022-08-18] MEDS: SENNOSIDES 8.6 MG (SENOKOT) TAB PO SCH (09:09)
[2022-08-18] MEDS: eZETimibe 10 MG (ZETIA) TABLET PO SCH (09:09)
[2022-08-18] MEDS: TIMOLOL MALEATE 0.5% 5 ML (TIMOPTIC) BTL OU SCH (09:09)
--- NOTE | 2022-08-18 10:07 | Therapy Team Discharge Summary ---
Therapy Discharge Summary Discharge Recommendations Date of Discharge Physical Therapy Patient has progressed and attained all functional goals. Patient required assistance upon admitting to [facility] and ambulated FWW 150-'200'. Patient is currently independent with all mobility and will dismiss to home with family and home health. Roll Left to Right (QC): 6 Sit to Lying (QC): 6 Lying to Sitting/Side of Bed(Q: 6 Sit to Stand (QC): 6 Chair/Hqt-tw-Cfyfm Xfer(QC): 6 Toilet Transfer (QC): 4 Car Transfer (QC): 6 Does the Patient Walk: Yes Mode of Locomotion: Walk Anticipated Mode of Locomotion: Walk Walk 10 feet (QC): 6 Walk 50 ft with 2 Turns(QC): 6 Walk 150 ft (QC): 6 Walking 10ft on uneven surface: 6 Distance: 250' Gait Assistive Device: FWW Wheel 50 ft with 2 turns (QC): 9 Wheel 150 ft (QC): 9 Type of Wheelchair: N/A #of Steps: 4 1 Step (curb) (QC): 4 4 Steps (QC): 4 12 Steps (QC): 9 Walking Assistive Device: Walker Balance Sitting Static: Normal Balance Sitting Dynamic: Normal Balance-Standing Static: Fair Picking up an Object (QC): 4 Occupational Therapy Decreased Activ Tolerance, Decreased Safety Aware, Impaired Funct Balance, Impaired Self-Care Skills Eating (QC): 6 Oral Hygiene (QC): 6 Shower/Bathe Self (QC): 5 Upper Body Dressing (QC): 5 Lower Body Dressing (QC): 5 On/Off Footwear (QC): 5 Toileting Hygiene (QC): 5 PT Senior Care Goals Senior Care Goals PT Senior Care Goals Time Frame: Sep 02, 2022 Roll Left to Right (QC): 6 Sit to Lying (QC): 6 Lying-Sitting on Side/Bed(QC): 6 Sit to Stand (QC): 6 Chair/Dlb-rr-Sfqke Xfer(QC): 6 Toilet/Commode Transfer (QC): 6 Car Transfer (QC): 6 Does the Patient Walk: Yes Walk 10 feet (QC): 5 Walk 10ft-Uneven Surface(QC): 5 Walk 50ft with 2 Turns (QC): 5 Walk 150 ft (QC): 5 Wheel 50 feet with 2 turns (QC: 9 Type: N/A Wheel 150 feet: 9 Type: N/A 1 Step (curb) (QC): 4 4 Steps (QC): 4 12 Steps (QC): 9 Picking up an Object (QC): 6 OT Housecleaner Floor Goals Housecleaner Floor Goals Time Frame: Aug 19, 2022 Acute change in mental status: 0 Inattention: 0 Disorganized thinkin Altered level of consciousness: 0 Toileting Hygiene (QC): 6 Shower/Bathe Self (QC): 6 Upper Body Dressing (QC): 6 Lower Body Dressing (QC): 6 On/Off Footwear (QC): 6 1=Demonstrate adherence to instructed precautions during ADL tasks. 2=Patient will verbalize/demonstrate understanding of assistive devices/modifications for ADL. 3=Patient will improve strength/tolerance for activity to enable patient to perform ADL's. ANASTASIA VINCENT PT Aug 18, 2022 10:07
--- NOTE | 2022-08-18 10:23 | D/C HH Face to Face Order ---
D/C Face to Face Orders Reconcile Patient Problems Problems Reviewed?: Yes Instructions for Patient Via [employer], Patient Instructions/FollowUp: see instructions Physician to follow Patient: [place] Discharge Diet for Home: No Restrictions Patient Data-Allergies,Ht & Wt Patient Allergies: Coded Allergies: No Known Drug Allergies (Unverified , 08/27/17) Height (Feet): 5 Height (Inches): 4.00 Weight (Pounds): 210 Weight (Ounces): 12.8 Home Health Need/Face to Face Date of Face to Face: Aug 18, 2022 Clinical Findings: Generalized weakness and fatigue, Instability, Muscle weakness, Unsteady gait I have seen Pt ighu-gi-tfeo: Yes Discharged To: Home Diagnosis/Conditions: HTN Diabetes Obesity ESBL E coli infectioin Problems/Diagnosis/Condition: (1) Infection due to ESBL-producing Escherichia coli (2) Gram-negative bacteremia (3) Pyelonephritis (4) PHILLIP (acute kidney injury) (5) HTN (hypertension) (6) Diabetes mellitus Patient is Homebound due to: Erin fall risk due to instabilty, Muscle weakness Homebound Status Due to the above stated illness, injury or surgical procedure (medical condition or diagnosis) and associated clinical findings, the patient is homebound because of his/her inability to leave home except with aid of a supportive device and/or person AND leaving the home requires a considerable and taxing effort or is medically contraindicated. Pt req the following assistanc: Aid of another person Home Health Nursing Orders Home Health Services Order: Nursing Services, [facility]-Evaluate & Treat, Physical Therapy-Evaluate & Treat Home Health Infusion Therapy Line Start Date: Aug 12, 2022 Therapy Orders Therapy Orders: OT (must have SN or PT order), Physical Therapy Therapy Specific Orders: Eval assistive deivces, Teach enviro modifications /safety, Gait training, Increase strength/endurance Certify Stmt I certify that this patient is under my care and that I, a nurse practitioner or a physician; a spa assistant manager working with me, had a face to face encounter that - meets the physician face to face encounter requirements with this patient as dated. JESS PAGAN MD Aug 18, 2022 10:23
[2022-08-18 15:34] VITALS: BP 164/71
--- NOTE | 2022-08-18 15:35 | Discharge Summary ---
Discharge Summary Hospital Course Problems/Dx: (1) Infection due to ESBL-producing Escherichia coli Status: Acute (2) Pyelonephritis Status: Acute (3) Gram-negative bacteremia Status: Acute Hospital Course Date of Admission: Aug 10, 2022 at 12:00 Admission Diagnosis : ESBL E coli bacteremia and pyelonephritis Family Physician/Provider: Darrin Thurman DO Date of Discharge: 08/18/22 Discharge Diagnosis: ESBL E coli bactermia and pyelonephritis Hospital Course: Joi Duran is an 86 year old female who was admitted with ESBL E coli bactermia and pyelonephritis. She was treated with IV Merrem and improved. She completed her course of IV antibiotics. She had an uncomplicated course. She was discharged home in stable condition with home health care. Labs and Pending Lab Test: Laboratory Tests 08/17/22 16:24: Glucometer 103 08/17/22 21:09: Glucometer 136H 08/18/22 05:08: Glucometer 90 08/18/22 11:03: Glucometer 106 Home Meds Active Reported Fish Oil 1,000 mg Softgel ([place]-3/Dha/Epa/Fish Oil) 1,000 Mg (120 Mg-180 Mg) Capsule 1,000 Mg PO DAILY Hair, Skin & Nails (Multivitamin with Minerals) 1 Each Tablet 1 Each PO DAILY Aspirin EC (Aspirin) 81 Mg Tablet.dr 81 Mg PO HS [Syntra 5] Cap 1 Ea PO BID Vitamin D3 (Cholecalciferol (Vitamin D3)) 25 Mcg (1000 Unit) Tablet 25 Mcg PO DAILY Preservision Areds 2 Softgel (Vit C/E/Zn/Coppr/Lutein/Zeaxan) 250MG-90MG Capsule 1 Each PO HS Farxiga (Dapagliflozin Propanediol) 10 Mg Tablet 10 Mg PO DAILY Ezetimibe 10 Mg Tablet 10 Mg PO DAILY Timolol Maleate 0.5% (Timolol Maleate) 0.5 % Drops 1 Drop OU BID Losartan Potassium 25 Mg Tablet 25 Mg PO DAILY Gemfibrozil 600 Mg Tablet 600 Mg PO BID Allopurinol 300 Mg Tablet 150 Mg PO HS TAKES OF A 300MG TAB Assessment/Pt Instructions See instructions Discharge Planning: >30 minutes discharge planning Discharge Instructions Discharge Diet: No Restrictions Activity as Tolerated: Yes Discharge Physical Examination Vital Signs Vital Signs Date Time Temp Pulse Resp B/P (MAP) Pulse Ox O2 Delivery O2 Flow Rate FiO2 4/14/23 08:00 Nasal Cannula 2.00 08/18/22 08:00 36.4 72 18 164/71 (102) 91 General Appearance: No Apparent Distress, Obese Respiratory: Lungs Clear, No Respiratory Distress Cardiovascular: Regular Rate, Rhythm, No Murmur Gastrointestinal: Normal Bowel Sounds, Soft Extremity: Normal Inspection, No Pedal Edema Skin: Normal Color, Warm/Dry Neurologic/Psychiatric: Alert, Normal Mood/Affect Allergies: Coded Allergies: No Known Drug Allergies (Unverified , 08/27/17) Discharge Summary Date of Admission Aug 10, 2022 at 12:00 Date of Discharge Discharge Date: Aug 18, 2022 Discharge Time: 15:24 Admission Diagnosis ESBL E coli bacteremia Discharge Diagnosis Pyelonephritis ESBL E coli bacteremia HTN T2DM HLD Gout Obesity Debility (1) Infection due to ESBL-producing Escherichia coli Status: Acute (2) Pyelonephritis Status: Acute (3) Gram-negative bacteremia Status: Acute JESS PAGAN MD Aug 18, 2022 15:28
== END 2022-08-18 15:30 | disposition home health service (06) | DRG 690 ==
LOC: 4TH 12:00
PROVIDERS: ADMIT Family Medicine; ATTEND Internal Medicine
PROC: 5A0935A Assistance with Respiratory Ventilation, Less than 24 Consecutive Hours, High Flow/Velocity Cannula (ICD-10-PCS; principal; 2022-08-14)
DX: N12 Tubulo-interstitial nephritis, not specified as acute or chronic (principal); R78.81 Bacteremia; B96.20 Unspecified Escherichia coli [E. coli] as the cause of diseases classified elsewhere; I10 Essential (primary) hypertension; E11.9 Type 2 diabetes mellitus without complications; E78.5 Hyperlipidemia, unspecified; M10.9 Gout, unspecified; E66.9 Obesity, unspecified; R53.81 Other malaise; N17.9 Acute kidney failure, unspecified
CPT/HCPCS: 82947; 94664